=== PATIENT | male | born 1980 | race Hispanic/Latino ===

== ENCOUNTER 2022-02-22 14:03 | Emergency (ER) | payer MEDICAID ==
[~2022-02-22] VITALS: Ht 177.8 cm; Wt 113.4 kg
[2022-02-22 14:48] LABS: APPEARANCE,URINE Clear (CLEAR); BILIRUBIN,URINE Negative (NEGATIVE); COLOR,URINE Yellow (YELLOW); GLUCOSE, URINE (UA) Negative (NEGATIVE); KETONES,URINE Trace mg/dL (NEGATIVE); LEUKOCYTE ESTERASE ,URINE Trace (NEGATIVE); NITRATE,URINE Negative (NEGATIVE); OCCULT BLOOD,URINE Negative (NEGATIVE); PH,URINE 5.5 (5.0-8.0); PROTEIN,URINE Negative (NEGATIVE)
[2022-02-22 14:55] LABS: RBC,URINE 0-1 /HPF (0-1)
[2022-02-22 14:56] LABS: BACTERIA,URINE Rare /HPF (None Seen); SQUAMOUS EPITHELIAL CELL,UR Rare /HPF (0-2)
[2022-02-22] MEDS ORDERED: 0.9%NACL 1000ML 1,000 ML IV ONE (15:30)
[2022-02-22] MEDS ORDERED: CEFTRIAXONE 1G VIAL IVP ONE (15:30)
[2022-02-22] MEDS ORDERED: MAGNESIUM CITRATE 296 ML SOLUTION PO ONE (15:30)
[2022-02-22] MEDS ORDERED: KETOROLAC 15MG/ML VIAL (15MG/ML) IV ONE (15:30)
[2022-02-22] MEDS ORDERED: CEPH500B PO (15:37)
[2022-02-22 15:38] LABS: BASOPHILS % (AUTO) 0.2 % (0.0-5.0); EOSINOPHILS % (AUTO) 1.6 % (0.0-8.0); HEMATOCRIT 47.2 % (42-54); MEAN CORPUSCULAR HGB CONC 32.6 g/dL (32.0-36.0); MEAN CORPUSCULAR VOLUME 88.9 fL (79-99); MONOCYTES % (AUTO) 4.5 % (3.0-13.0); NEUTROPHILS % (AUTO) 61.5 % (40.0-77.0); PLATELET COUNT (AUTO) 402 K/uL (130-400); RED BLOOD CELL COUNT(AUTO) 5.31 MIL/uL (4.50-6.20); RED CELL DISTRIBUTION WIDTH 12.3 % (11.0-15.5); WHITE BLOOD COUNT (AUTO) 9.8 K/uL (4.8-10.8)
[2022-02-22 15:55] LABS: CREATININE 0.9 mg/dL (0.5-1.5); POTASSIUM 3.6 mmol/L (3.5-5.1)
[2022-02-22 16:00] LABS: ALBUMIN 3.9 g/dL (3.5-5.0); BILIRUBIN,TOTAL 0.4 mg/dL (0.2-1.0); TOTAL PROTEIN, SERUM 8.2 g/dL (6.0-8.3)
[2022-02-22 16:04] VITALS: BP 134/75
[2022-02-22] MEDS ORDERED: ONDANSETRON 4MG INJ ONE (16:11)
[2022-02-22] MEDS ORDERED: ONDANSETRON 4MG INJ IVP ONE (16:30)
== END 2022-02-22 16:43 | disposition home or self-care (01) ==
LOC: EDH 14:03
DX: K59.00 Constipation, unspecified (principal); E86.0 Dehydration; N50.812 Left testicular pain; N50.811 Right testicular pain
CPT/HCPCS: 36415; 74018; 80053; 81001; 85025; 87486; 87797; 96374; 96375; 99284; J0696; J1885; J2405

== ENCOUNTER 2022-12-01 10:15 | Inpatient (IN) | payer MEDICAID ==
[~2022-12-01] VITALS: Ht 177.8 cm; Wt 100.2 kg
[~2022-12-01 10:15] MED LIST: CEPH500B PO
[2022-12-01] MEDS ORDERED: ACETAMINOPHEN 500 MG TABLET PO STA (10:44)
[2022-12-01] MEDS ORDERED: 0.9%NACL 1000ML 1,000 ML IV STA (10:44)
[2022-12-01 10:45] LABS: BASOPHILS % (AUTO) 0.2 % (0.0-5.0); HEMATOCRIT 46.4 % (42-54); LYMPHOCYTES % (AUTO) 11.8 % (21.0-51.0); MEAN CORPUSCULAR HEMOGLOBIN 30.8 pg (27.0-33.0); MEAN CORPUSCULAR HGB CONC 34.1 g/dL (32.0-36.0); MEAN CORPUSCULAR VOLUME 90.4 fL (79-99); MONOCYTES % (AUTO) 3.9 % (3.0-13.0); NEUTROPHILS % (AUTO) 83.5 % (40.0-77.0); PLATELET COUNT (AUTO) 363 K/uL (130-400); RED BLOOD CELL COUNT(AUTO) 5.13 MIL/uL (4.50-6.20); RED CELL DISTRIBUTION WIDTH 12.9 % (11.0-15.5); WHITE BLOOD COUNT (AUTO) 28.8 K/uL (4.8-10.8)
[2022-12-01] MEDS ORDERED: ZOSYN 3.375GM +NS 50ML IVPB ONE (11:00)
[2022-12-01] MEDS ORDERED: KETOROLAC 30MG VIAL (30MG/ML) IVP ONE (11:00)
[2022-12-01 11:01] LABS: CREATININE 1.2 mg/dL (0.5-1.5); POTASSIUM 3.2 mmol/L (3.5-5.1)
[2022-12-01 11:06] LABS: ALBUMIN 3.5 g/dL (3.5-5.0); TOTAL PROTEIN, SERUM 7.5 g/dL (6.0-8.3)
[2022-12-01] MEDS ORDERED: HYDROMORPHONE 0.5 MG SYG (0.5MG/0.5ML) IVP ONE (12:30)
[2022-12-01] MEDS ORDERED: 0.9%NACL 1000ML 2,000 ML IV ONE (12:30)
[2022-12-01 12:39] LABS: APPEARANCE,URINE CLEAR (CLEAR); BILIRUBIN,URINE NEGATIVE (NEGATIVE); COLOR,URINE YELLOW (YELLOW); GLUCOSE, URINE (UA) NEGATIVE (NEGATIVE); KETONES,URINE NEGATIVE (NEGATIVE); LEUKOCYTE ESTERASE ,URINE NEGATIVE Leu/uL (NEGATIVE); NITRATE,URINE NEGATIVE (NEGATIVE); OCCULT BLOOD,URINE SMALL (NEGATIVE); PROTEIN,URINE 10 mg/dL (NEGATIVE); UROBILINOGEN,URINE 0.2 mg/dL (0.2-1.0)
[2022-12-01 12:58] LABS: BACTERIA,URINE RARE /HPF (None Seen); MUCUS,URINE RARE LPF (None Seen); RBC,URINE 0-1 /HPF (0-1)
[2022-12-01] MEDS ORDERED: 0.9%NACL 50ML IV SCH (13:00)
[2022-12-01] MEDS ORDERED: HYDROMORPHONE 0.5 MG SYG (0.5MG/0.5ML) IVP PRN (13:00)
[2022-12-01] MEDS ORDERED: ONDANSETRON 4MG INJ IVP PRN (13:00)
[2022-12-01 14:04] LABS: INR 1.07 (0.85-1.15); PROTHROMBIN TIME 11.6 SEC (9.6-11.6)
[2022-12-01 14:05] LABS: PARTIAL THROMBOPLASTIN TIME 33.9 SEC (26.3-35.5)
[2022-12-01 14:08] LABS: HEMOGLOBIN A1C 5.4 % (4.0-6.0)
[2022-12-01 14:24] LABS: CRP QUANTITATIVE 260.1 mg/L (0.00-9.0); MAGNESIUM 2.1 mg/dL (1.80-2.40); THYROID STIMULATING HORMONE 0.87 uIU/mL (0.36-3.74)
[2022-12-01] MEDS: POTASSIUM CHLORIDE 20MEQ/100ML 100 ML IV PRN (14:40)
[2022-12-01] MEDS ORDERED: ACETAMINOPHEN 500 MG TABLET PO PRN (15:00)
[2022-12-01] MEDS: FLUCONAZOLE 200 MG/NS 100 ML 100 ML IV SCH (15:01)
[2022-12-01] MEDS: 0.9%NACL 1000ML 1,000 ML IV SCH (15:02)
[2022-12-01 16:00] VITALS: BP 122/78
[2022-12-01] MEDS: KETOROLAC 15MG/ML VIAL (15MG/ML) IV PRN (17:02)
[2022-12-01] MEDS ORDERED: ZOSYN 3.375GM +NS 50ML IVPB SCH (18:00)
[2022-12-01 20:00] VITALS: BP 115/66
[2022-12-01] MEDS: ZOSYN 3.375GM +NS 50ML IVPB SCH (21:14)
[2022-12-01] MEDS: HYDROMORPHONE 0.5 MG SYG (0.5MG/0.5ML) IVP PRN (22:48)
[2022-12-01 23:56] VITALS: BP 130/83
[2022-12-02] MEDS: 0.9%NACL 1000ML 1,000 ML IV SCH ×3 (02:20→20:09)
[2022-12-02] MEDS: KETOROLAC 15MG/ML VIAL (15MG/ML) IV PRN (03:55)
[2022-12-02 04:00] VITALS: BP 141/80
[2022-12-02] MEDS ORDERED: ACETAMINOPHEN 325 MG TAB PO PRN (04:00)
[2022-12-02] MEDS: ZOSYN 3.375GM +NS 50ML IVPB SCH ×3 (05:17→22:33)
[2022-12-02 05:18] LABS: BASOPHILS % (AUTO) 0.1 % (0.0-5.0); EOSINOPHILS % (AUTO) 0.2 % (0.0-8.0); HEMATOCRIT 40.8 % (42-54); LYMPHOCYTES % (AUTO) 12.8 % (21.0-51.0); MEAN CORPUSCULAR HGB CONC 32.8 g/dL (32.0-36.0); MEAN CORPUSCULAR VOLUME 94.4 fL (79-99); MONOCYTES % (AUTO) 3.9 % (3.0-13.0); NEUTROPHILS % (AUTO) 82.6 % (40.0-77.0); PLATELET COUNT (AUTO) 284 K/uL (130-400); RED BLOOD CELL COUNT(AUTO) 4.32 MIL/uL (4.50-6.20); RED CELL DISTRIBUTION WIDTH 12.7 % (11.0-15.5)
[2022-12-02 05:35] LABS: ALBUMIN 2.8 g/dL (3.5-5.0); MAGNESIUM 2.2 mg/dL (1.80-2.40); POTASSIUM 3.3 mmol/L (3.5-5.1); TOTAL PROTEIN, SERUM 6.5 g/dL (6.0-8.3)
[2022-12-02 06:16] LABS: CRP QUANTITATIVE 279.2 mg/L (0.00-9.0)
[2022-12-02 08:00] VITALS: BP 149/90
[2022-12-02] MEDS: KETOROLAC 30MG VIAL (30MG/ML) IVP SCH ×3 (09:20→20:39)
[2022-12-02] MEDS: POTASSIUM CHLORIDE 20MEQ/100ML 100 ML IV PRN ×2 (09:22→19:29)
[2022-12-02 12:00] VITALS: BP 135/75
[2022-12-02] MEDS ORDERED: LIDOCAINE HCL-MPF 1% 2ML VIAL IV PRN (13:00)
[2022-12-02] MEDS: FLUCONAZOLE 200 MG/NS 100 ML 100 ML IV SCH (14:09)
[2022-12-02 16:00] VITALS: BP 132/82
[2022-12-02 20:00] VITALS: BP 137/82
[2022-12-02] MEDS ORDERED: ALPRAZOLAM 0.5 MG TABLET PO ONE (21:00)
[2022-12-03] VITALS: BP 130/82
[2022-12-03] MEDS: 0.9%NACL 1000ML 1,000 ML IV SCH ×4 (01:16→21:08)
[2022-12-03 04:00] VITALS: BP 130/79
[2022-12-03] MEDS: KETOROLAC 30MG VIAL (30MG/ML) IVP SCH ×3 (04:01→15:00)
[2022-12-03] MEDS: ZOSYN 3.375GM +NS 50ML IVPB SCH ×3 (04:20→21:08)
[2022-12-03 05:55] LABS: BASOPHILS % (AUTO) 0.1 % (0.0-5.0); EOSINOPHILS % (AUTO) 0.8 % (0.0-8.0); HEMATOCRIT 38.3 % (42-54); LYMPHOCYTES % (AUTO) 12.9 % (21.0-51.0); MEAN CORPUSCULAR HEMOGLOBIN 30.7 pg (27.0-33.0); MEAN CORPUSCULAR HGB CONC 32.9 g/dL (32.0-36.0); MEAN CORPUSCULAR VOLUME 93.2 fL (79-99); MONOCYTES % (AUTO) 4.8 % (3.0-13.0); NEUTROPHILS % (AUTO) 80.9 % (40.0-77.0); PLATELET COUNT (AUTO) 263 K/uL (130-400); RED BLOOD CELL COUNT(AUTO) 4.11 MIL/uL (4.50-6.20); RED CELL DISTRIBUTION WIDTH 12.6 % (11.0-15.5); WHITE BLOOD COUNT (AUTO) 14.1 K/uL (4.8-10.8)
[2022-12-03 06:17] LABS: ALBUMIN 2.4 g/dL (3.5-5.0); CREATININE 0.8 mg/dL (0.5-1.5); MAGNESIUM 2.1 mg/dL (1.80-2.40); POTASSIUM 3.4 mmol/L (3.5-5.1); TOTAL PROTEIN, SERUM 6.2 g/dL (6.0-8.3)
[2022-12-03] MEDS: KCL 20 MEQ ERTAB PO PRN (06:52)
[2022-12-03 08:00] VITALS: BP 123/79
[2022-12-03 11:58] VITALS: BP 137/90
[2022-12-03] MEDS: FLUCONAZOLE 200 MG/NS 100 ML 100 ML IV SCH (13:00)
[2022-12-03] MEDS: HYDROMORPHONE 0.5 MG SYG (0.5MG/0.5ML) IVP PRN ×2 (15:32→19:58)
[2022-12-03 16:00] VITALS: BP 166/96
[2022-12-03 20:28] VITALS: BP 152/89
[2022-12-03] MEDS: HYDROMORPHONE 1 MG INJ IVP PRN (23:06)
[2022-12-04] VITALS (7 sets, daily range): BP systolic 129–168; BP diastolic 89–96
[2022-12-04] MEDS ORDERED: ACETAMINOPHEN 650 MG/20.3 ML UDCUP ONE (00:06)
[2022-12-04] MEDS: ACETAMINOPHEN 325 MG/10.15ML UDCUP PO PRN ×4 (01:00→21:20)
[2022-12-04] MEDS: 0.9%NACL 1000ML 1,000 ML IV SCH ×2 (02:39→13:37)
[2022-12-04] MEDS: HYDROMORPHONE 1 MG INJ IVP PRN ×5 (04:20→22:53)
[2022-12-04] MEDS: ZOSYN 3.375GM +NS 50ML IVPB SCH ×3 (05:00→21:19)
[2022-12-04 05:22] LABS: BASOPHILS % (AUTO) 0.1 % (0.0-5.0); EOSINOPHILS % (AUTO) 0.2 % (0.0-8.0); HEMATOCRIT 39.4 % (42-54); LYMPHOCYTES % (AUTO) 13.1 % (21.0-51.0); MEAN CORPUSCULAR HEMOGLOBIN 30.6 pg (27.0-33.0); MEAN CORPUSCULAR HGB CONC 32.5 g/dL (32.0-36.0); MEAN CORPUSCULAR VOLUME 94.3 fL (79-99); MONOCYTES % (AUTO) 5.2 % (3.0-13.0); PLATELET COUNT (AUTO) 305 K/uL (130-400); RED BLOOD CELL COUNT(AUTO) 4.18 MIL/uL (4.50-6.20); RED CELL DISTRIBUTION WIDTH 12.8 % (11.0-15.5); WHITE BLOOD COUNT (AUTO) 11.8 K/uL (4.8-10.8)
[2022-12-04 05:46] LABS: ALBUMIN 2.3 g/dL (3.5-5.0); TOTAL PROTEIN, SERUM 6.4 g/dL (6.0-8.3)
[2022-12-04 06:14] LABS: CRP QUANTITATIVE 272.3 mg/L (0.00-9.0)
[2022-12-04 06:31] LABS: ERYTHROCYTE SEDIMENTATION RATE 60 MM/HR (0-15)
[2022-12-04] MEDS: FLUCONAZOLE 200 MG/NS 100 ML 100 ML IV SCH (13:37)
[2022-12-04] MEDS: DEXTROSE 5 %-0.45 % NACL 1,000 ML IV SCH (17:15)
[2022-12-05] MEDS: DEXTROSE 5 %-0.45 % NACL 1,000 ML IV SCH ×3 (00:56→21:01)
[2022-12-05] MEDS: HYDROMORPHONE 1 MG INJ IVP PRN ×6 (02:02→21:56)
[2022-12-05 04:41] VITALS: BP 128/86
[2022-12-05 04:42] LABS: BASOPHILS % (AUTO) 0.1 % (0.0-5.0); EOSINOPHILS % (AUTO) 0.3 % (0.0-8.0); HEMATOCRIT 39.2 % (42-54); LYMPHOCYTES % (AUTO) 11.3 % (21.0-51.0); MEAN CORPUSCULAR HEMOGLOBIN 30.7 pg (27.0-33.0); MEAN CORPUSCULAR HGB CONC 33.2 g/dL (32.0-36.0); MEAN CORPUSCULAR VOLUME 92.7 fL (79-99); MONOCYTES % (AUTO) 4.3 % (3.0-13.0); NEUTROPHILS % (AUTO) 83.6 % (40.0-77.0); PLATELET COUNT (AUTO) 302 K/uL (130-400); RED BLOOD CELL COUNT(AUTO) 4.23 MIL/uL (4.50-6.20); WHITE BLOOD COUNT (AUTO) 14.4 K/uL (4.8-10.8)
[2022-12-05] MEDS: ZOSYN 3.375GM +NS 50ML IVPB SCH ×3 (04:47→21:01)
[2022-12-05 04:57] LABS: CREATININE 1.1 mg/dL (0.5-1.5); POTASSIUM 3.5 mmol/L (3.5-5.1); TOTAL PROTEIN, SERUM 6.1 g/dL (6.0-8.3)
[2022-12-05 05:09] LABS: CRP QUANTITATIVE 396.2 mg/L (0.00-9.0)
[2022-12-05 05:52] LABS: ERYTHROCYTE SEDIMENTATION RATE 73 MM/HR (0-15)
[2022-12-05 07:50] VITALS: BP 129/85
[2022-12-05] MEDS ORDERED: VANCOMYCIN PROTOCOL PER PHARMACY IV PRN (08:30)
[2022-12-05] MEDS ORDERED: VANCOMYCIN 1G/250ML KIT 250 ML IV SCH (08:30)
[2022-12-05] MEDS ORDERED: FLUCONAZOLE 200 MG/NS 100 ML 100 ML IV SCH (09:00)
[2022-12-05] MEDS ORDERED: VANCOMYCIN 1.25 GM/250 ML BAG 250 ML IV SCH (09:00)
[2022-12-05 11:27] VITALS: BP 137/83
[2022-12-05] MEDS ORDERED: DIATR MEGLU/DIATRIZOATE SODIUM 30 ML BOTTLE ONE (12:22)
[2022-12-05] MEDS: FLUCONAZOLE 200 MG/NS 100 ML 100 ML IV SCH (13:18)
[2022-12-05] MEDS: LINEZOLID 600 MG/ISO-OSM 300 ML IV SCH (15:33)
[2022-12-05 16:51] VITALS: BP 127/72
[2022-12-05] MEDS ORDERED: IOHEXOL 350 MG/ML 100ML INFUS..BTL IV ONE (16:53)
[2022-12-05 19:22] VITALS: BP 135/72
[2022-12-05 23:30] VITALS: BP 126/81
[2022-12-06] MEDS: DEXTROSE 5 %-0.45 % NACL 1,000 ML IV SCH ×3 (00:28→14:41)
[2022-12-06] MEDS: HYDROMORPHONE 1 MG INJ IVP PRN ×6 (02:09→23:49)
[2022-12-06] MEDS: LINEZOLID 600 MG/ISO-OSM 300 ML IV SCH ×2 (02:09→13:13)
[2022-12-06 03:54] VITALS: BP 117/75
[2022-12-06 05:23] LABS: BASOPHILS % (AUTO) 0.2 % (0.0-5.0); EOSINOPHILS % (AUTO) 1.7 % (0.0-8.0); HEMATOCRIT 38.2 % (42-54); LYMPHOCYTES % (AUTO) 13.8 % (21.0-51.0); MEAN CORPUSCULAR HEMOGLOBIN 30.7 pg (27.0-33.0); MEAN CORPUSCULAR HGB CONC 32.5 g/dL (32.0-36.0); MEAN CORPUSCULAR VOLUME 94.6 fL (79-99); MONOCYTES % (AUTO) 5.4 % (3.0-13.0); NEUTROPHILS % (AUTO) 78.2 % (40.0-77.0); PLATELET COUNT (AUTO) 322 K/uL (130-400); RED BLOOD CELL COUNT(AUTO) 4.04 MIL/uL (4.50-6.20); RED CELL DISTRIBUTION WIDTH 13.2 % (11.0-15.5); WHITE BLOOD COUNT (AUTO) 16.3 K/uL (4.8-10.8)
[2022-12-06] MEDS: ZOSYN 3.375GM +NS 50ML IVPB SCH ×3 (05:40→22:27)
[2022-12-06 06:01] LABS: CREATININE 1.2 mg/dL (0.5-1.5); TOTAL PROTEIN, SERUM 6.3 g/dL (6.0-8.3)
[2022-12-06 06:11] LABS: POTASSIUM 2.9 mmol/L (3.5-5.1)
[2022-12-06 06:20] LABS: CRP QUANTITATIVE 359.1 mg/L (0.00-9.0)
[2022-12-06 06:36] LABS: ALBUMIN 2.2 g/dL (3.5-5.0)
[2022-12-06 06:37] LABS: ERYTHROCYTE SEDIMENTATION RATE 82 MM/HR (0-15)
[2022-12-06] MEDS: LIDOCAINE HCL-MPF 1% 2ML VIAL IV PRN ×2 (06:38→13:13)
[2022-12-06] MEDS: POTASSIUM CHLORIDE 20MEQ/100ML 100 ML IV PRN ×3 (06:38→22:24)
[2022-12-06 08:00] VITALS: BP 131/82
[2022-12-06 11:44] VITALS: BP 141/89
[2022-12-06] MEDS: FLUCONAZOLE 200 MG/NS 100 ML 100 ML IV SCH (13:13)
[2022-12-06 16:33] VITALS: BP 112/68
[2022-12-06 19:22] VITALS: BP 142/90
[2022-12-06] MEDS: FAMOTIDINE 20MG VIAL IV SCH (21:13)
[2022-12-06 23:39] VITALS: BP 136/87
[2022-12-07] VITALS (11 sets, daily range): BP systolic 117–139; BP diastolic 77–85
[2022-12-07] MEDS: LINEZOLID 600 MG/ISO-OSM 300 ML IV SCH ×2 (02:06→15:02)
[2022-12-07] MEDS: ZOSYN 3.375GM +NS 50ML IVPB SCH ×3 (04:37→20:41)
[2022-12-07] MEDS: HYDROMORPHONE 1 MG INJ IVP PRN ×3 (04:46→19:25)
[2022-12-07] MEDS: DEXTROSE 5 %-0.45 % NACL 1,000 ML IV SCH ×2 (04:58→08:30)
[2022-12-07 05:03] LABS: BASOPHILS % (AUTO) 0.2 % (0.0-5.0); EOSINOPHILS % (AUTO) 1.7 % (0.0-8.0); HEMATOCRIT 37.2 % (42-54); LYMPHOCYTES % (AUTO) 16.1 % (21.0-51.0); MEAN CORPUSCULAR HEMOGLOBIN 30.4 pg (27.0-33.0); MEAN CORPUSCULAR HGB CONC 32.5 g/dL (32.0-36.0); MEAN CORPUSCULAR VOLUME 93.5 fL (79-99); NEUTROPHILS % (AUTO) 75.3 % (40.0-77.0); PLATELET COUNT (AUTO) 402 K/uL (130-400); RED BLOOD CELL COUNT(AUTO) 3.98 MIL/uL (4.50-6.20); RED CELL DISTRIBUTION WIDTH 13.5 % (11.0-15.5); WHITE BLOOD COUNT (AUTO) 12.1 K/uL (4.8-10.8)
[2022-12-07 05:29] LABS: CREATININE 1.1 mg/dL (0.5-1.5)
[2022-12-07 05:35] LABS: POTASSIUM 2.9 mmol/L (3.5-5.1)
[2022-12-07 05:36] LABS: CRP QUANTITATIVE 244.7 mg/L (0.00-9.0)
[2022-12-07] MEDS: POTASSIUM CHLORIDE 20MEQ/100ML 100 ML IV PRN (06:24)
[2022-12-07 06:28] LABS: ERYTHROCYTE SEDIMENTATION RATE 69 MM/HR (0-15)
[2022-12-07] MEDS: FAMOTIDINE 20MG VIAL IV SCH ×2 (09:00→20:41)
[2022-12-07] MEDS ORDERED: FENTANYL CITRATE PF 50 MCG/1 ML 2ML VIAL ONE (09:30)
[2022-12-07] MEDS: FLUCONAZOLE 200 MG/NS 100 ML 100 ML IV SCH (12:26)
[2022-12-07] MEDS: POTASSIUM CHLORIDE 20MEQ/10ML 20 MEQ in DEXTROSE 5 %-0.45 % NACL 1,000 ML IV SCH ×2 (15:02→21:34)
[2022-12-07] MEDS ORDERED: LIDOCAINE HCL 1% 20 ML VIAL ONE (15:40)
[2022-12-08] MEDS: LINEZOLID 600 MG/ISO-OSM 300 ML IV SCH ×2 (01:33→15:02)
[2022-12-08 03:48] VITALS: BP 126/75
[2022-12-08] MEDS: HYDROMORPHONE 1 MG INJ IVP PRN ×3 (04:00→17:28)
[2022-12-08 05:01] LABS: BASOPHILS % (AUTO) 0.2 % (0.0-5.0); HEMATOCRIT 37.1 % (42-54); LYMPHOCYTES % (AUTO) 19.4 % (21.0-51.0); MEAN CORPUSCULAR HEMOGLOBIN 30.6 pg (27.0-33.0); MEAN CORPUSCULAR HGB CONC 33.4 g/dL (32.0-36.0); MEAN CORPUSCULAR VOLUME 91.6 fL (79-99); MONOCYTES % (AUTO) 6.1 % (3.0-13.0); NEUTROPHILS % (AUTO) 71.4 % (40.0-77.0); PLATELET COUNT (AUTO) 465 K/uL (130-400); RED BLOOD CELL COUNT(AUTO) 4.05 MIL/uL (4.50-6.20); RED CELL DISTRIBUTION WIDTH 13.5 % (11.0-15.5); WHITE BLOOD COUNT (AUTO) 11.7 K/uL (4.8-10.8)
[2022-12-08] MEDS: ZOSYN 3.375GM +NS 50ML IVPB SCH ×3 (05:12→20:45)
[2022-12-08] MEDS: POTASSIUM CHLORIDE 20MEQ/100ML 100 ML IV PRN (05:24)
[2022-12-08] MEDS: LIDOCAINE HCL-MPF 1% 2ML VIAL IV PRN (05:24)
[2022-12-08] MEDS: POTASSIUM CHLORIDE 20MEQ/10ML 20 MEQ in DEXTROSE 5 %-0.45 % NACL 1,000 ML IV SCH ×2 (05:48→20:26)
[2022-12-08 06:56] LABS: ERYTHROCYTE SEDIMENTATION RATE 60 MM/HR (0-15)
[2022-12-08 08:00] VITALS: BP 122/79
[2022-12-08] MEDS: FAMOTIDINE 20MG VIAL IV SCH ×2 (08:55→20:43)
[2022-12-08 11:23] VITALS: BP 132/80
[2022-12-08] MEDS: FLUCONAZOLE 200 MG/NS 100 ML 100 ML IV SCH (12:44)
[2022-12-08] MEDS: HYDROMORPHONE 0.5 MG SYG (0.5MG/0.5ML) IVP PRN ×2 (13:07→20:44)
[2022-12-08 16:00] VITALS: BP 123/80
[2022-12-08 19:15] VITALS: BP 140/92
[2022-12-08] MEDS: D5W-1/2 NS/20MEQ KCL 1,000 ML IV SCH (20:34)
[2022-12-08 23:19] VITALS: BP 131/86
[2022-12-09] MEDS: HYDROMORPHONE 1 MG INJ IVP PRN ×5 (00:43→22:27)
[2022-12-09] MEDS: LINEZOLID 600 MG/ISO-OSM 300 ML IV SCH ×2 (02:02→14:58)
[2022-12-09] MEDS: D5W-1/2 NS/20MEQ KCL 1,000 ML IV SCH ×3 (02:14→18:19)
[2022-12-09 04:08] VITALS: BP 152/96
[2022-12-09] MEDS: ZOSYN 3.375GM +NS 50ML IVPB SCH ×3 (04:14→19:40)
[2022-12-09 04:56] LABS: BASOPHILS % (AUTO) 0.1 % (0.0-5.0); EOSINOPHILS % (AUTO) 1.7 % (0.0-8.0); HEMATOCRIT 37.8 % (42-54); LYMPHOCYTES % (AUTO) 18.4 % (21.0-51.0); MEAN CORPUSCULAR HEMOGLOBIN 30.2 pg (27.0-33.0); MEAN CORPUSCULAR HGB CONC 32.3 g/dL (32.0-36.0); MEAN CORPUSCULAR VOLUME 93.6 fL (79-99); MONOCYTES % (AUTO) 5.1 % (3.0-13.0); NEUTROPHILS % (AUTO) 73.6 % (40.0-77.0); PLATELET COUNT (AUTO) 483 K/uL (130-400); RED BLOOD CELL COUNT(AUTO) 4.04 MIL/uL (4.50-6.20); RED CELL DISTRIBUTION WIDTH 13.2 % (11.0-15.5); WHITE BLOOD COUNT (AUTO) 14.9 K/uL (4.8-10.8)
[2022-12-09 05:27] LABS: CRP QUANTITATIVE 151.7 mg/L (0.00-9.0); POTASSIUM 3.4 mmol/L (3.5-5.1)
[2022-12-09] MEDS: LIDOCAINE HCL-MPF 1% 2ML VIAL IV PRN (05:51)
[2022-12-09] MEDS: POTASSIUM CHLORIDE 20MEQ/100ML 100 ML IV PRN (05:51)
[2022-12-09 06:23] LABS: ERYTHROCYTE SEDIMENTATION RATE 45 MM/HR (0-15)
[2022-12-09 08:00] VITALS: BP 136/92
[2022-12-09] MEDS: FAMOTIDINE 20MG VIAL IV SCH ×2 (08:19→19:40)
[2022-12-09 11:48] VITALS: BP 138/94
[2022-12-09] MEDS: FLUCONAZOLE 200 MG/NS 100 ML 100 ML IV SCH (12:26)
[2022-12-09 15:35] VITALS: BP 132/56
[2022-12-09 19:00] VITALS: BP 155/98
[2022-12-10] VITALS (7 sets, daily range): BP systolic 125–145; BP diastolic 76–92
[2022-12-10] MEDS: LINEZOLID 600 MG/ISO-OSM 300 ML IV SCH ×2 (01:14→13:44)
[2022-12-10] MEDS: D5W-1/2 NS/20MEQ KCL 1,000 ML IV SCH ×3 (01:14→17:43)
[2022-12-10] MEDS: ZOSYN 3.375GM +NS 50ML IVPB SCH ×3 (04:11→19:23)
[2022-12-10] MEDS: HYDROMORPHONE 1 MG INJ IVP PRN ×3 (04:12→21:46)
[2022-12-10 05:09] LABS: BASOPHILS % (AUTO) 0.2 % (0.0-5.0); EOSINOPHILS % (AUTO) 1.3 % (0.0-8.0); HEMATOCRIT 39.5 % (42-54); LYMPHOCYTES % (AUTO) 18.1 % (21.0-51.0); MEAN CORPUSCULAR HEMOGLOBIN 30.8 pg (27.0-33.0); MEAN CORPUSCULAR HGB CONC 32.4 g/dL (32.0-36.0); MEAN CORPUSCULAR VOLUME 95.2 fL (79-99); MONOCYTES % (AUTO) 4.4 % (3.0-13.0); NEUTROPHILS % (AUTO) 74.5 % (40.0-77.0); PLATELET COUNT (AUTO) 556 K/uL (130-400); RED BLOOD CELL COUNT(AUTO) 4.15 MIL/uL (4.50-6.20); RED CELL DISTRIBUTION WIDTH 13.2 % (11.0-15.5); WHITE BLOOD COUNT (AUTO) 15.7 K/uL (4.8-10.8)
[2022-12-10 05:46] LABS: CREATININE 1.1 mg/dL (0.5-1.5); POTASSIUM 3.5 mmol/L (3.5-5.1)
[2022-12-10 06:59] LABS: ERYTHROCYTE SEDIMENTATION RATE 47 MM/HR (0-15)
[2022-12-10] MEDS: FAMOTIDINE 20MG VIAL IV SCH ×2 (09:12→19:23)
[2022-12-10] MEDS: HYDROMORPHONE 0.5 MG SYG (0.5MG/0.5ML) IVP PRN ×2 (09:14→17:43)
[2022-12-10] MEDS: FLUCONAZOLE 200 MG/NS 100 ML 100 ML IV SCH (13:43)
[2022-12-11] MEDS: LINEZOLID 600 MG/ISO-OSM 300 ML IV SCH ×2 (01:04→15:04)
[2022-12-11] MEDS: D5W-1/2 NS/20MEQ KCL 1,000 ML IV SCH ×3 (01:04→15:14)
[2022-12-11] MEDS: HYDROMORPHONE 1 MG INJ IVP PRN ×5 (02:51→22:28)
[2022-12-11] MEDS: ZOSYN 3.375GM +NS 50ML IVPB SCH ×3 (02:51→20:11)
[2022-12-11 04:27] VITALS: BP 118/84
[2022-12-11 05:34] LABS: BASOPHILS % (AUTO) 0.2 % (0.0-5.0); EOSINOPHILS % (AUTO) 1.6 % (0.0-8.0); HEMATOCRIT 39.2 % (42-54); LYMPHOCYTES % (AUTO) 22.4 % (21.0-51.0); MEAN CORPUSCULAR HEMOGLOBIN 30.2 pg (27.0-33.0); MEAN CORPUSCULAR HGB CONC 32.4 g/dL (32.0-36.0); MEAN CORPUSCULAR VOLUME 93.3 fL (79-99); MONOCYTES % (AUTO) 5.2 % (3.0-13.0); NEUTROPHILS % (AUTO) 69.4 % (40.0-77.0); PLATELET COUNT (AUTO) 657 K/uL (130-400); WHITE BLOOD COUNT (AUTO) 12.3 K/uL (4.8-10.8)
[2022-12-11 05:52] LABS: MAGNESIUM 2.4 mg/dL (1.80-2.40); PHOSPHORUS 3.7 mg/dL (2.5-4.9); POTASSIUM 3.8 mmol/L (3.5-5.1)
[2022-12-11 08:00] VITALS: BP 122/82
[2022-12-11] MEDS ORDERED: IOHEXOL 350 MG/ML 100ML INFUS..BTL IV ONE (08:45)
[2022-12-11] MEDS: FAMOTIDINE 20MG VIAL IV SCH ×2 (09:20→20:11)
[2022-12-11 11:49] VITALS: BP 124/83
[2022-12-11] MEDS: FLUCONAZOLE 200 MG/NS 100 ML 100 ML IV SCH (12:04)
[2022-12-11 16:00] VITALS: BP 119/79
[2022-12-11 20:19] VITALS: BP 133/80
[2022-12-11] MEDS: HYDROMORPHONE 0.5 MG SYG (0.5MG/0.5ML) IVP PRN (20:20)
[2022-12-11 23:43] VITALS: BP 134/81
[2022-12-12] MEDS: LINEZOLID 600 MG/ISO-OSM 300 ML IV SCH ×2 (02:00→13:21)
[2022-12-12] MEDS: D5W-1/2 NS/20MEQ KCL 1,000 ML IV SCH ×2 (02:11→09:13)
[2022-12-12] MEDS: HYDROMORPHONE 0.5 MG SYG (0.5MG/0.5ML) IVP PRN ×5 (02:13→21:33)
[2022-12-12 04:28] VITALS: BP 127/77
[2022-12-12 04:43] LABS: BASOPHILS % (AUTO) 0.3 % (0.0-5.0); EOSINOPHILS % (AUTO) 1.6 % (0.0-8.0); HEMATOCRIT 40.1 % (42-54); MEAN CORPUSCULAR HEMOGLOBIN 30.5 pg (27.0-33.0); MEAN CORPUSCULAR HGB CONC 32.7 g/dL (32.0-36.0); MEAN CORPUSCULAR VOLUME 93.3 fL (79-99); MONOCYTES % (AUTO) 4.9 % (3.0-13.0); NEUTROPHILS % (AUTO) 75.5 % (40.0-77.0); PLATELET COUNT (AUTO) 681 K/uL (130-400); RED CELL DISTRIBUTION WIDTH 12.9 % (11.0-15.5); WHITE BLOOD COUNT (AUTO) 15.3 K/uL (4.8-10.8)
[2022-12-12] MEDS: ZOSYN 3.375GM +NS 50ML IVPB SCH ×3 (04:45→20:26)
[2022-12-12 07:43] VITALS: BP 134/78
[2022-12-12] MEDS: FAMOTIDINE 20MG VIAL IV SCH ×2 (08:01→20:26)
[2022-12-12 11:30] VITALS: BP 153/91
[2022-12-12] MEDS: FLUCONAZOLE 200 MG/NS 100 ML 100 ML IV SCH (11:55)
[2022-12-12] MEDS: HYDROMORPHONE 1 MG INJ IVP PRN (13:22)
[2022-12-12 16:00] VITALS: BP 134/94
[2022-12-12 20:05] VITALS: BP 129/79
[2022-12-12 23:25] VITALS: BP 121/75
[2022-12-13] MEDS: D5W-1/2 NS/20MEQ KCL 1,000 ML IV SCH ×5 (02:00→20:52)
[2022-12-13] MEDS: LINEZOLID 600 MG/ISO-OSM 300 ML IV SCH ×2 (02:22→13:24)
[2022-12-13] MEDS: HYDROMORPHONE 0.5 MG SYG (0.5MG/0.5ML) IVP PRN ×4 (02:26→21:36)
[2022-12-13 03:56] VITALS: BP 115/73
[2022-12-13 04:25] LABS: BASOPHILS % (AUTO) 0.3 % (0.0-5.0); HEMATOCRIT 39.4 % (42-54); LYMPHOCYTES % (AUTO) 24.5 % (21.0-51.0); MEAN CORPUSCULAR HEMOGLOBIN 30.6 pg (27.0-33.0); MEAN CORPUSCULAR VOLUME 92.7 fL (79-99); MONOCYTES % (AUTO) 4.8 % (3.0-13.0); NEUTROPHILS % (AUTO) 67.7 % (40.0-77.0); RED BLOOD CELL COUNT(AUTO) 4.25 MIL/uL (4.50-6.20); RED CELL DISTRIBUTION WIDTH 12.8 % (11.0-15.5); WHITE BLOOD COUNT (AUTO) 11.6 K/uL (4.8-10.8)
[2022-12-13 04:26] LABS: PLATELET COUNT (AUTO) 764 K/uL (130-400)
[2022-12-13 04:45] LABS: POTASSIUM 3.8 mmol/L (3.5-5.1)
[2022-12-13] MEDS: ZOSYN 3.375GM +NS 50ML IVPB SCH ×3 (05:19→20:53)
[2022-12-13 08:00] VITALS: BP 123/73
[2022-12-13] MEDS: FAMOTIDINE 20MG VIAL IV SCH ×2 (08:58→20:52)
[2022-12-13] MEDS ORDERED: HYDROMORPHONE 0.5 MG SYG (0.5MG/0.5ML) ONE (11:32)
[2022-12-13] MEDS: FLUCONAZOLE 200 MG/NS 100 ML 100 ML IV SCH (11:35)
[2022-12-13 12:00] VITALS: BP 121/81
[2022-12-13 16:00] VITALS: BP 117/75
[2022-12-14] VITALS (7 sets, daily range): BP systolic 110–135; BP diastolic 67–83
[2022-12-14] MEDS: LINEZOLID 600 MG/ISO-OSM 300 ML IV SCH ×2 (01:33→14:06)
[2022-12-14] MEDS: HYDROMORPHONE 0.5 MG SYG (0.5MG/0.5ML) IVP PRN ×5 (01:59→22:29)
[2022-12-14] MEDS: ZOSYN 3.375GM +NS 50ML IVPB SCH ×3 (05:01→19:51)
[2022-12-14 08:00] LABS: HEMATOCRIT 41.7 % (42-54); MEAN CORPUSCULAR HEMOGLOBIN 30.2 pg (27.0-33.0); MEAN CORPUSCULAR HGB CONC 31.9 g/dL (32.0-36.0); MEAN CORPUSCULAR VOLUME 94.6 fL (79-99); RED BLOOD CELL COUNT(AUTO) 4.41 MIL/uL (4.50-6.20); RED CELL DISTRIBUTION WIDTH 12.9 % (11.0-15.5); WHITE BLOOD COUNT (AUTO) 10.6 K/uL (4.8-10.8)
[2022-12-14 08:09] LABS: PLATELET COUNT (AUTO) 731 K/uL (130-400)
[2022-12-14 08:10] LABS: CREATININE 1.1 mg/dL (0.5-1.5); POTASSIUM 4.4 mmol/L (3.5-5.1)
[2022-12-14] MEDS: FAMOTIDINE 20MG VIAL IV SCH ×2 (09:00→19:51)
[2022-12-14] MEDS: D5W-1/2 NS/20MEQ KCL 1,000 ML IV SCH ×2 (10:00→18:14)
[2022-12-14] MEDS: FLUCONAZOLE 200 MG/NS 100 ML 100 ML IV SCH (13:23)
[2022-12-15] MEDS: LINEZOLID 600 MG/ISO-OSM 300 ML IV SCH ×2 (01:59→13:55)
[2022-12-15] MEDS: D5W-1/2 NS/20MEQ KCL 1,000 ML IV SCH ×4 (01:59→21:01)
[2022-12-15] MEDS: HYDROMORPHONE 0.5 MG SYG (0.5MG/0.5ML) IVP PRN ×5 (02:00→22:16)
[2022-12-15 04:00] VITALS: BP 118/78
[2022-12-15] MEDS: ZOSYN 3.375GM +NS 50ML IVPB SCH ×2 (04:43→13:05)
[2022-12-15 08:00] VITALS: BP 105/81
[2022-12-15] MEDS: FAMOTIDINE 20MG VIAL IV SCH ×2 (09:42→21:00)
[2022-12-15 12:00] VITALS: BP 118/76
[2022-12-15] MEDS: FLUCONAZOLE 200 MG/NS 100 ML 100 ML IV SCH (13:05)
[2022-12-15 16:00] VITALS: BP 124/83
[2022-12-15 20:00] VITALS: BP 118/71
[2022-12-16] VITALS: BP 121/75
[2022-12-16] MEDS: LINEZOLID 600 MG/ISO-OSM 300 ML IV SCH ×2 (02:08→14:01)
[2022-12-16] MEDS: HYDROMORPHONE 0.5 MG SYG (0.5MG/0.5ML) IVP PRN ×3 (02:11→13:27)
[2022-12-16 04:00] VITALS: BP 109/70
[2022-12-16 05:08] LABS: BASOPHILS % (AUTO) 0.4 % (0.0-5.0); EOSINOPHILS % (AUTO) 3.3 % (0.0-8.0); HEMATOCRIT 40.1 % (42-54); LYMPHOCYTES % (AUTO) 30.1 % (21.0-51.0); MEAN CORPUSCULAR HGB CONC 32.2 g/dL (32.0-36.0); MEAN CORPUSCULAR VOLUME 93.3 fL (79-99); MONOCYTES % (AUTO) 4.7 % (3.0-13.0); NEUTROPHILS % (AUTO) 61.1 % (40.0-77.0); PLATELET COUNT (AUTO) 696 K/uL (130-400); RED CELL DISTRIBUTION WIDTH 12.8 % (11.0-15.5); WHITE BLOOD COUNT (AUTO) 11.6 K/uL (4.8-10.8)
[2022-12-16 05:26] LABS: CREATININE 1.1 mg/dL (0.5-1.5); MAGNESIUM 2.2 mg/dL (1.80-2.40); PHOSPHORUS 4.2 mg/dL (2.5-4.9); POTASSIUM 3.5 mmol/L (3.5-5.1)
[2022-12-16] MEDS ORDERED: DIATR MEGLU/DIATRIZOATE SODIUM 30 ML BOTTLE ONE ×2 (05:47→08:17)
[2022-12-16] MEDS: D5W-1/2 NS/20MEQ KCL 1,000 ML IV SCH ×3 (06:17→22:05)
[2022-12-16 07:47] VITALS: BP 120/76
[2022-12-16] MEDS ORDERED: IOHEXOL-350 75 ML VIAL IV ONE (08:16)
[2022-12-16] MEDS: FAMOTIDINE 20MG VIAL IV SCH ×2 (08:30→20:58)
[2022-12-16] MEDS: HYDROMORPHONE 1 MG INJ IVP PRN ×3 (09:43→21:33)
[2022-12-16 12:06] VITALS: BP 112/64
[2022-12-16] MEDS: FLUCONAZOLE 200 MG/NS 100 ML 100 ML IV SCH (13:12)
[2022-12-16] MEDS: KCL 20 MEQ ERTAB PO PRN ×2 (15:42→18:16)
[2022-12-16 15:55] VITALS: BP 122/68
[2022-12-16 20:00] VITALS: BP 126/78
[2022-12-17] VITALS: BP 119/76
[2022-12-17] MEDS: HYDROMORPHONE 1 MG INJ IVP PRN ×4 (01:38→21:43)
[2022-12-17] MEDS: LINEZOLID 600 MG/ISO-OSM 300 ML IV SCH ×2 (01:38→13:25)
[2022-12-17 04:00] VITALS: BP 130/81
[2022-12-17 05:58] LABS: BASOPHILS % (AUTO) 0.6 % (0.0-5.0); EOSINOPHILS % (AUTO) 3.7 % (0.0-8.0); HEMATOCRIT 41.6 % (42-54); LYMPHOCYTES % (AUTO) 32.7 % (21.0-51.0); MEAN CORPUSCULAR HEMOGLOBIN 30.5 pg (27.0-33.0); MEAN CORPUSCULAR HGB CONC 32.5 g/dL (32.0-36.0); MEAN CORPUSCULAR VOLUME 93.9 fL (79-99); MONOCYTES % (AUTO) 4.4 % (3.0-13.0); NEUTROPHILS % (AUTO) 58.2 % (40.0-77.0); RED BLOOD CELL COUNT(AUTO) 4.43 MIL/uL (4.50-6.20); RED CELL DISTRIBUTION WIDTH 12.9 % (11.0-15.5); WHITE BLOOD COUNT (AUTO) 11.6 K/uL (4.8-10.8)
[2022-12-17 06:08] LABS: PLATELET COUNT (AUTO) 715 K/uL (130-400)
[2022-12-17 06:29] LABS: CREATININE 0.9 mg/dL (0.5-1.5)
[2022-12-17 08:00] VITALS: BP 135/79
[2022-12-17] MEDS: FAMOTIDINE 20MG VIAL IV SCH ×2 (09:16→20:16)
[2022-12-17] MEDS: HYDROMORPHONE 0.5 MG SYG (0.5MG/0.5ML) IVP PRN ×2 (09:18→17:43)
[2022-12-17] MEDS: 0.9%NACL 1000ML 1,000 ML IV SCH (10:30)
[2022-12-17] MEDS: FLUCONAZOLE 200 MG/NS 100 ML 100 ML IV SCH (13:25)
[2022-12-17] MEDS: D5W-1/2 NS/20MEQ KCL 1,000 ML IV SCH ×2 (13:26→17:25)
[2022-12-17 16:00] VITALS: BP 110/72
[2022-12-17 20:02] VITALS: BP 114/76
[2022-12-17 23:51] VITALS: BP 107/72
[2022-12-18] MEDS: D5W-1/2 NS/20MEQ KCL 1,000 ML IV SCH ×3 (02:00→18:00)
[2022-12-18] MEDS: LINEZOLID 600 MG/ISO-OSM 300 ML IV SCH ×2 (02:55→12:38)
[2022-12-18] MEDS: 0.9%NACL 1000ML 1,000 ML IV SCH ×2 (02:56→12:39)
[2022-12-18] MEDS: HYDROMORPHONE 1 MG INJ IVP PRN ×4 (02:57→22:24)
[2022-12-18 04:39] VITALS: BP 100/59
[2022-12-18 04:51] LABS: BASOPHILS % (AUTO) 0.8 % (0.0-5.0); EOSINOPHILS % (AUTO) 5.4 % (0.0-8.0); HEMATOCRIT 40.4 % (42-54); LYMPHOCYTES % (AUTO) 42.1 % (21.0-51.0); MEAN CORPUSCULAR HEMOGLOBIN 30.2 pg (27.0-33.0); MEAN CORPUSCULAR HGB CONC 32.2 g/dL (32.0-36.0); MONOCYTES % (AUTO) 4.9 % (3.0-13.0); NEUTROPHILS % (AUTO) 46.6 % (40.0-77.0); PLATELET COUNT (AUTO) 649 K/uL (130-400); RED CELL DISTRIBUTION WIDTH 12.8 % (11.0-15.5); WHITE BLOOD COUNT (AUTO) 8.9 K/uL (4.8-10.8)
[2022-12-18 05:08] LABS: CREATININE 0.9 mg/dL (0.5-1.5); POTASSIUM 3.8 mmol/L (3.5-5.1)
[2022-12-18 08:13] VITALS: BP 99/57
[2022-12-18] MEDS: FAMOTIDINE 20MG VIAL IV SCH ×2 (09:17→20:37)
[2022-12-18 11:05] VITALS: BP 98/65
[2022-12-18] MEDS: POTASSIUM CHLORIDE 10% ELIXIR 20 MEQ/15 ML UDCUP PO PRN ×2 (11:13→14:52)
[2022-12-18] MEDS: FLUCONAZOLE 200 MG/NS 100 ML 100 ML IV SCH (13:48)
[2022-12-18] MEDS ORDERED: METRONIDAZOLE 500 MG TABLET PO ONE ×3 (14:00→19:00)
[2022-12-18] MEDS: HYDROMORPHONE 0.5 MG SYG (0.5MG/0.5ML) IVP PRN (14:11)
[2022-12-18] MEDS: CIPROFLOXACIN HCL 500 MG TABLET PO SCH ×3 (14:45→18:21)
[2022-12-18] MEDS ORDERED: PEG 3350/NA SULF,BICARB,CL/KCL 4000 ML SOLN PO ONE (16:00)
[2022-12-18 16:31] VITALS: BP 113/71
[2022-12-18 20:32] VITALS: BP 118/75
[2022-12-18] MEDS: DOCUSATE SODIUM 100 MG CAP PO SCH (20:37)
[2022-12-18] MEDS: KCL 20 MEQ ERTAB PO PRN ×2 (20:37→22:25)
[2022-12-19] VITALS (28 sets, daily range): BP systolic 103–155; BP diastolic 64–94
[2022-12-19] MEDS ORDERED: MORPHINE 2 MG SYG IVP ONE
[2022-12-19] MEDS: D5W-1/2 NS/20MEQ KCL 1,000 ML IV SCH ×3 (01:46→18:00)
[2022-12-19] MEDS: LINEZOLID 600 MG/ISO-OSM 300 ML IV SCH ×3 (02:28→16:20)
[2022-12-19] MEDS: 0.9%NACL 1000ML 1,000 ML IV SCH ×2 (02:28→15:50)
[2022-12-19] MEDS: HYDROMORPHONE 1 MG INJ IVP PRN ×3 (02:29→10:57)
[2022-12-19] MEDS: FAMOTIDINE 20MG VIAL IV SCH ×2 (08:24→21:17)
[2022-12-19 11:27] LABS: HEMATOCRIT 44.4 % (42-54); MEAN CORPUSCULAR HEMOGLOBIN 30.5 pg (27.0-33.0); MEAN CORPUSCULAR HGB CONC 32.9 g/dL (32.0-36.0); MEAN CORPUSCULAR VOLUME 92.7 fL (79-99); RED BLOOD CELL COUNT(AUTO) 4.79 MIL/uL (4.50-6.20); RED CELL DISTRIBUTION WIDTH 12.8 % (11.0-15.5); WHITE BLOOD COUNT (AUTO) 17.3 K/uL (4.8-10.8)
[2022-12-19 11:50] LABS: ALBUMIN 3.2 g/dL (3.5-5.0); CREATININE 1.1 mg/dL (0.5-1.5); POTASSIUM 4.2 mmol/L (3.5-5.1); TOTAL PROTEIN, SERUM 7.3 g/dL (6.0-8.3)
[2022-12-19] MEDS: FLUCONAZOLE 200 MG/NS 100 ML 100 ML IV SCH (13:23)
[2022-12-19] MEDS: CIPROFLOXACIN HCL 500 MG TABLET PO SCH ×2 (13:23→14:00)
[2022-12-19] MEDS ORDERED: PROPOFOL 10 MG/ML 20ML VIAL IV ONE ×2 (14:29→15:13)
[2022-12-19] MEDS ORDERED: ONDANSETRON 4MG INJ ONE ×2 (14:29→18:11)
[2022-12-19] MEDS ORDERED: LIDOCAINE PF 100MG/5ML (2%) SYRINGE 5ML ONE (14:29)
[2022-12-19] MEDS ORDERED: SUCCINYLCHOLINE CHLORIDE 20 MG/ML 10 ML VIAL ONE (14:29)
[2022-12-19] MEDS ORDERED: GLYCOPYRROLATE 1 MG/5 ML SYRINGE ONE (14:29)
[2022-12-19] MEDS ORDERED: DEXAMETHASONE SOD PHOSPHATE 10MG/ML 1ML VIAL ONE (14:29)
[2022-12-19] MEDS ORDERED: FENTANYL CITRATE PF 50 MCG/1 ML 2ML VIAL ONE ×3 (14:29→18:13)
[2022-12-19] MEDS ORDERED: ROCURONIUM 10MG/1ML SYR 10 MG/ML ML ONE ×3 (14:30→17:33)
[2022-12-19] MEDS ORDERED: MIDAZOLAM HCL 1 MG/ML 2ML VIAL ONE (14:30)
[2022-12-19] MEDS ORDERED: LACTATED RINGERS 1000ML 1,000 ML IV ONE (14:32)
[2022-12-19] MEDS ORDERED: PHARMACY COMMUNICATION MISC SCH (15:00)
[2022-12-19] MEDS ORDERED: MEPERIDINE-PF 25 MG/ML SYG ONE ×2 (18:58→19:23)
[2022-12-19] MEDS: DOCUSATE SODIUM 100 MG CAP PO SCH (21:00)
[2022-12-19] MEDS: MEROPENEM 1 GM VIAL IVP SCH (21:17)
[2022-12-19] MEDS: LACTATED RINGERS 1000ML 1,000 ML IV SCH (22:00)
[2022-12-19] MEDS: HYDROMORPHONE 0.5 MG SYG (0.5MG/0.5ML) IVP PRN (22:27)
[2022-12-20] VITALS (8 sets, daily range): BP systolic 114–155; BP diastolic 66–86
[2022-12-20] MEDS ORDERED: KETOROLAC 30MG VIAL (30MG/ML) IM PRN
[2022-12-20] MEDS: D5W-1/2 NS/20MEQ KCL 1,000 ML IV SCH (01:04)
[2022-12-20] MEDS: LINEZOLID 600 MG/ISO-OSM 300 ML IV SCH ×2 (02:06→14:15)
[2022-12-20] MEDS: HYDROMORPHONE 0.5 MG SYG (0.5MG/0.5ML) IVP PRN (03:25)
[2022-12-20] MEDS: MEROPENEM 1 GM VIAL IVP SCH ×3 (04:31→20:09)
[2022-12-20] MEDS: 0.9%NACL 1000ML 1,000 ML IV SCH (04:40)
[2022-12-20] MEDS: KETOROLAC 30MG VIAL (30MG/ML) IVP PRN ×4 (05:10→23:43)
[2022-12-20 05:21] LABS: BASOPHILS % (AUTO) 0.1 % (0.0-5.0); LYMPHOCYTES % (AUTO) 6.6 % (21.0-51.0); MEAN CORPUSCULAR HGB CONC 32.8 g/dL (32.0-36.0); MEAN CORPUSCULAR VOLUME 91.7 fL (79-99); MONOCYTES % (AUTO) 3.5 % (3.0-13.0); NEUTROPHILS % (AUTO) 89.1 % (40.0-77.0); PLATELET COUNT (AUTO) 607 K/uL (130-400); RED BLOOD CELL COUNT(AUTO) 4.36 MIL/uL (4.50-6.20); RED CELL DISTRIBUTION WIDTH 13.1 % (11.0-15.5)
[2022-12-20 06:01] LABS: ALBUMIN 2.7 g/dL (3.5-5.0); TOTAL PROTEIN, SERUM 6.5 g/dL (6.0-8.3)
[2022-12-20] MEDS: ENOXAPARIN SODIUM 40 MG/0.4 ML SYRINGE SQ SCH (08:29)
[2022-12-20] MEDS: FAMOTIDINE 20MG VIAL IV SCH ×2 (08:29→20:09)
[2022-12-20] MEDS: HYDROMORPHONE 1 MG INJ IVP PRN ×3 (08:29→20:09)
[2022-12-20] MEDS: LACTATED RINGERS 1000ML 1,000 ML IV SCH (12:37)
[2022-12-20 14:13] LABS: HEMATOCRIT 37.7 % (42-54); MEAN CORPUSCULAR HEMOGLOBIN 30.5 pg (27.0-33.0); MEAN CORPUSCULAR HGB CONC 32.9 g/dL (32.0-36.0); MEAN CORPUSCULAR VOLUME 92.9 fL (79-99); RED BLOOD CELL COUNT(AUTO) 4.06 MIL/uL (4.50-6.20); WHITE BLOOD COUNT (AUTO) 17.9 K/uL (4.8-10.8)
[2022-12-20] MEDS: FLUCONAZOLE 200 MG/NS 100 ML 100 ML IV SCH (14:15)
[2022-12-20] MEDS: DOCUSATE SODIUM 100 MG CAP PO SCH (19:57)
[2022-12-21] MEDS: LACTATED RINGERS 1000ML 1,000 ML IV SCH (00:16)
[2022-12-21 00:33] LABS: BASOPHILS % (AUTO) 0.2 % (0.0-5.0); EOSINOPHILS % (AUTO) 0.1 % (0.0-8.0); HEMATOCRIT 35.1 % (42-54); LYMPHOCYTES % (AUTO) 11.8 % (21.0-51.0); MEAN CORPUSCULAR HEMOGLOBIN 30.1 pg (27.0-33.0); MEAN CORPUSCULAR HGB CONC 31.9 g/dL (32.0-36.0); MEAN CORPUSCULAR VOLUME 94.4 fL (79-99); MONOCYTES % (AUTO) 5.9 % (3.0-13.0); NEUTROPHILS % (AUTO) 81.5 % (40.0-77.0); PLATELET COUNT (AUTO) 504 K/uL (130-400); RED BLOOD CELL COUNT(AUTO) 3.72 MIL/uL (4.50-6.20); RED CELL DISTRIBUTION WIDTH 13.2 % (11.0-15.5); WHITE BLOOD COUNT (AUTO) 17.7 K/uL (4.8-10.8)
[2022-12-21] MEDS: HYDROMORPHONE 1 MG INJ IVP PRN ×2 (01:01→06:43)
[2022-12-21] MEDS: LINEZOLID 600 MG/ISO-OSM 300 ML IV SCH ×2 (03:02→15:00)
[2022-12-21 03:44] VITALS: BP 107/59
[2022-12-21] MEDS: MEROPENEM 1 GM VIAL IVP SCH ×3 (04:33→20:44)
[2022-12-21 04:41] LABS: BASOPHILS % (AUTO) 0.1 % (0.0-5.0); EOSINOPHILS % (AUTO) 0.2 % (0.0-8.0); HEMATOCRIT 30.8 % (42-54); LYMPHOCYTES % (AUTO) 15.3 % (21.0-51.0); MEAN CORPUSCULAR HEMOGLOBIN 30.5 pg (27.0-33.0); MEAN CORPUSCULAR HGB CONC 32.8 g/dL (32.0-36.0); MEAN CORPUSCULAR VOLUME 93.1 fL (79-99); MONOCYTES % (AUTO) 5.7 % (3.0-13.0); NEUTROPHILS % (AUTO) 78.2 % (40.0-77.0); PLATELET COUNT (AUTO) 414 K/uL (130-400); RED BLOOD CELL COUNT(AUTO) 3.31 MIL/uL (4.50-6.20); RED CELL DISTRIBUTION WIDTH 13.1 % (11.0-15.5); WHITE BLOOD COUNT (AUTO) 15.1 K/uL (4.8-10.8)
[2022-12-21 04:51] LABS: ALBUMIN 2.4 g/dL (3.5-5.0); CREATININE 0.8 mg/dL (0.5-1.5); POTASSIUM 3.6 mmol/L (3.5-5.1); TOTAL PROTEIN, SERUM 5.8 g/dL (6.0-8.3)
[2022-12-21 08:24] VITALS: BP 92/52
[2022-12-21] MEDS: FAMOTIDINE 20MG VIAL IV SCH ×2 (09:10→20:44)
[2022-12-21] MEDS: ENOXAPARIN SODIUM 40 MG/0.4 ML SYRINGE SQ SCH (09:10)
[2022-12-21] MEDS: KETOROLAC 30MG VIAL (30MG/ML) IVP PRN ×2 (09:13→20:53)
[2022-12-21 12:00] VITALS: BP 104/55
[2022-12-21] MEDS: KCL 20 MEQ ERTAB PO PRN ×2 (12:37→20:45)
[2022-12-21] MEDS: HYDROCODONE/ACETAMINOPHEN 10/325 MG TAB PO PRN ×2 (12:38→18:27)
[2022-12-21] MEDS: FLUCONAZOLE 200 MG/NS 100 ML 100 ML IV SCH (15:02)
[2022-12-21 16:00] VITALS: BP 102/58
[2022-12-21 19:21] VITALS: BP 113/69
[2022-12-21] MEDS: DOCUSATE SODIUM 100 MG CAP PO SCH (20:28)
[2022-12-21 23:11] VITALS: BP 114/62
[2022-12-22] MEDS: HYDROCODONE/ACETAMINOPHEN 10/325 MG TAB PO PRN ×4 (01:36→23:19)
[2022-12-22] MEDS: LINEZOLID 600 MG/ISO-OSM 300 ML IV SCH ×2 (02:13→15:26)
[2022-12-22 03:37] VITALS: BP 114/71
[2022-12-22] MEDS: MEROPENEM 1 GM VIAL IVP SCH ×3 (04:06→20:20)
[2022-12-22 04:34] LABS: BASOPHILS % (AUTO) 0.3 % (0.0-5.0); EOSINOPHILS % (AUTO) 1.8 % (0.0-8.0); HEMATOCRIT 30.2 % (42-54); LYMPHOCYTES % (AUTO) 35.9 % (21.0-51.0); MEAN CORPUSCULAR HEMOGLOBIN 30.4 pg (27.0-33.0); MEAN CORPUSCULAR HGB CONC 31.8 g/dL (32.0-36.0); MEAN CORPUSCULAR VOLUME 95.6 fL (79-99); MONOCYTES % (AUTO) 6.5 % (3.0-13.0); NEUTROPHILS % (AUTO) 55.2 % (40.0-77.0); PLATELET COUNT (AUTO) 386 K/uL (130-400); RED BLOOD CELL COUNT(AUTO) 3.16 MIL/uL (4.50-6.20); WHITE BLOOD COUNT (AUTO) 9.5 K/uL (4.8-10.8)
[2022-12-22 05:02] LABS: ALBUMIN 2.4 g/dL (3.5-5.0); CREATININE 0.9 mg/dL (0.5-1.5); POTASSIUM 3.8 mmol/L (3.5-5.1); TOTAL PROTEIN, SERUM 5.8 g/dL (6.0-8.3)
[2022-12-22 07:35] VITALS: BP 112/66
[2022-12-22] MEDS: KETOROLAC 30MG VIAL (30MG/ML) IVP PRN ×2 (08:30→20:20)
[2022-12-22] MEDS: FAMOTIDINE 20MG VIAL IV SCH ×2 (08:40→20:21)
[2022-12-22] MEDS: ENOXAPARIN SODIUM 40 MG/0.4 ML SYRINGE SQ SCH (08:41)
[2022-12-22 11:35] VITALS: BP 115/75
[2022-12-22] MEDS: FLUCONAZOLE 200 MG/NS 100 ML 100 ML IV SCH (14:13)
[2022-12-22] MEDS: KCL 20 MEQ ERTAB PO PRN (14:14)
[2022-12-22 15:35] VITALS: BP 131/76
[2022-12-22 19:15] VITALS: BP 132/75
[2022-12-22] MEDS: DOCUSATE SODIUM 100 MG CAP PO SCH (21:00)
[2022-12-23] VITALS (7 sets, daily range): BP systolic 109–131; BP diastolic 70–85
[2022-12-23] MEDS: MEROPENEM 1 GM VIAL IVP SCH ×3 (03:49→20:38)
[2022-12-23] MEDS: LINEZOLID 600 MG/ISO-OSM 300 ML IV SCH (03:49)
[2022-12-23 07:43] LABS: HEMATOCRIT 32.8 % (42-54); MEAN CORPUSCULAR HEMOGLOBIN 30.3 pg (27.0-33.0); MEAN CORPUSCULAR VOLUME 94.8 fL (79-99); RED BLOOD CELL COUNT(AUTO) 3.46 MIL/uL (4.50-6.20); RED CELL DISTRIBUTION WIDTH 12.9 % (11.0-15.5); WHITE BLOOD COUNT (AUTO) 8.7 K/uL (4.8-10.8)
[2022-12-23 08:02] LABS: ALBUMIN 2.5 g/dL (3.5-5.0); CREATININE 0.9 mg/dL (0.5-1.5); POTASSIUM 4.2 mmol/L (3.5-5.1); TOTAL PROTEIN, SERUM 6.1 g/dL (6.0-8.3)
[2022-12-23] MEDS: FAMOTIDINE 20MG VIAL IV SCH ×2 (08:08→20:38)
[2022-12-23] MEDS: KETOROLAC 30MG VIAL (30MG/ML) IVP PRN (08:08)
[2022-12-23] MEDS: ENOXAPARIN SODIUM 40 MG/0.4 ML SYRINGE SQ SCH (08:09)
[2022-12-23] MEDS: FLUCONAZOLE 200 MG/NS 100 ML 100 ML IV SCH (12:27)
[2022-12-23] MEDS: HYDROCODONE/ACETAMINOPHEN 10/325 MG TAB PO PRN ×2 (14:49→20:40)
[2022-12-24] MEDS: MEROPENEM 1 GM VIAL IVP SCH ×3 (03:44→20:42)
[2022-12-24] MEDS: HYDROCODONE/ACETAMINOPHEN 10/325 MG TAB PO PRN ×4 (03:48→23:21)
[2022-12-24 03:53] VITALS: BP 114/83
[2022-12-24 06:06] LABS: HEMATOCRIT 33.4 % (42-54); MEAN CORPUSCULAR HEMOGLOBIN 29.8 pg (27.0-33.0); MEAN CORPUSCULAR HGB CONC 31.7 g/dL (32.0-36.0); MEAN CORPUSCULAR VOLUME 93.8 fL (79-99); RED BLOOD CELL COUNT(AUTO) 3.56 MIL/uL (4.50-6.20); RED CELL DISTRIBUTION WIDTH 12.7 % (11.0-15.5); WHITE BLOOD COUNT (AUTO) 8.8 K/uL (4.8-10.8)
[2022-12-24 06:25] LABS: ALBUMIN 2.5 g/dL (3.5-5.0); CREATININE 0.9 mg/dL (0.5-1.5); POTASSIUM 4.3 mmol/L (3.5-5.1); TOTAL PROTEIN, SERUM 6.2 g/dL (6.0-8.3)
[2022-12-24 08:00] VITALS: BP 110/69
[2022-12-24] MEDS: ENOXAPARIN SODIUM 40 MG/0.4 ML SYRINGE SQ SCH (10:28)
[2022-12-24] MEDS: FAMOTIDINE 20MG VIAL IV SCH ×2 (10:28→20:43)
[2022-12-24 12:00] VITALS: BP 137/73
[2022-12-24] MEDS: FLUCONAZOLE 200 MG/NS 100 ML 100 ML IV SCH (13:50)
[2022-12-24 16:00] VITALS: BP 120/82
[2022-12-24 20:00] VITALS: BP 133/74
[2022-12-25] VITALS: BP 126/76
[2022-12-25] MEDS: MEROPENEM 1 GM VIAL IVP SCH ×3 (03:48→20:55)
[2022-12-25 04:00] VITALS: BP 121/73
[2022-12-25 04:51] LABS: BASOPHILS % (AUTO) 0.5 % (0.0-5.0); EOSINOPHILS % (AUTO) 4.6 % (0.0-8.0); HEMATOCRIT 32.6 % (42-54); LYMPHOCYTES % (AUTO) 37.3 % (21.0-51.0); MEAN CORPUSCULAR HEMOGLOBIN 30.4 pg (27.0-33.0); MEAN CORPUSCULAR HGB CONC 33.1 g/dL (32.0-36.0); MEAN CORPUSCULAR VOLUME 91.8 fL (79-99); MONOCYTES % (AUTO) 6.9 % (3.0-13.0); NEUTROPHILS % (AUTO) 50.4 % (40.0-77.0); PLATELET COUNT (AUTO) 348 K/uL (130-400); RED BLOOD CELL COUNT(AUTO) 3.55 MIL/uL (4.50-6.20); RED CELL DISTRIBUTION WIDTH 12.5 % (11.0-15.5); WHITE BLOOD COUNT (AUTO) 7.7 K/uL (4.8-10.8)
[2022-12-25 05:03] LABS: ALBUMIN 2.6 g/dL (3.5-5.0); CREATININE 0.7 mg/dL (0.5-1.5); MAGNESIUM 2.2 mg/dL (1.80-2.40); POTASSIUM 3.7 mmol/L (3.5-5.1); TOTAL PROTEIN, SERUM 6.3 g/dL (6.0-8.3)
[2022-12-25] MEDS: HYDROCODONE/ACETAMINOPHEN 10/325 MG TAB PO PRN ×2 (05:32→11:45)
[2022-12-25 08:00] VITALS: BP 110/74
[2022-12-25] MEDS: FAMOTIDINE 20MG VIAL IV SCH ×2 (11:43→20:55)
[2022-12-25] MEDS: ENOXAPARIN SODIUM 40 MG/0.4 ML SYRINGE SQ SCH (11:44)
[2022-12-25 11:59] VITALS: BP 108/66
[2022-12-25] MEDS: FLUCONAZOLE 200 MG/NS 100 ML 100 ML IV SCH (14:37)
[2022-12-25 16:00] VITALS: BP 128/84
[2022-12-25] MEDS: ACETAMINOPHEN WITH CODEINE 1 TAB TAB PO PRN (18:54)
[2022-12-25 20:00] VITALS: BP 116/77
[2022-12-26] VITALS: BP 111/54
[2022-12-26] MEDS: ACETAMINOPHEN WITH CODEINE 1 TAB TAB PO PRN ×4 (01:12→18:38)
[2022-12-26 04:00] VITALS: BP 119/75
[2022-12-26 04:58] LABS: BASOPHILS % (AUTO) 0.5 % (0.0-5.0); HEMATOCRIT 33.8 % (42-54); MEAN CORPUSCULAR HEMOGLOBIN 29.9 pg (27.0-33.0); MEAN CORPUSCULAR HGB CONC 32.8 g/dL (32.0-36.0); MEAN CORPUSCULAR VOLUME 91.1 fL (79-99); MONOCYTES % (AUTO) 7.3 % (3.0-13.0); NEUTROPHILS % (AUTO) 50.1 % (40.0-77.0); PLATELET COUNT (AUTO) 358 K/uL (130-400); RED BLOOD CELL COUNT(AUTO) 3.71 MIL/uL (4.50-6.20); RED CELL DISTRIBUTION WIDTH 12.6 % (11.0-15.5); WHITE BLOOD COUNT (AUTO) 8.3 K/uL (4.8-10.8)
[2022-12-26] MEDS: MEROPENEM 1 GM VIAL IVP SCH ×3 (05:20→19:42)
[2022-12-26 05:22] LABS: ALBUMIN 2.8 g/dL (3.5-5.0); CREATININE 0.8 mg/dL (0.5-1.5); POTASSIUM 3.8 mmol/L (3.5-5.1); TOTAL PROTEIN, SERUM 6.8 g/dL (6.0-8.3)
[2022-12-26 08:00] VITALS: BP 132/79
[2022-12-26 08:11] LABS: INR 1.1 (0.85-1.15); PROTHROMBIN TIME 11.9 SEC (9.6-11.6)
[2022-12-26 08:12] LABS: PARTIAL THROMBOPLASTIN TIME 34.5 SEC (26.3-35.5)
[2022-12-26] MEDS: FAMOTIDINE 20MG VIAL IV SCH ×2 (08:19→19:45)
[2022-12-26] MEDS: ENOXAPARIN SODIUM 40 MG/0.4 ML SYRINGE SQ SCH (08:19)
[2022-12-26] MEDS: KCL 20 MEQ ERTAB PO PRN ×2 (08:20→12:59)
[2022-12-26 12:00] VITALS: BP 126/75
[2022-12-26] MEDS: FLUCONAZOLE 200 MG/NS 100 ML 100 ML IV SCH (12:59)
[2022-12-26 16:00] VITALS: BP 114/72
[2022-12-26 20:00] VITALS: BP 116/71
[2022-12-27] VITALS: BP 112/79
[2022-12-27] MEDS: ACETAMINOPHEN WITH CODEINE 1 TAB TAB PO PRN ×4 (00:25→21:04)
[2022-12-27 04:00] VITALS: BP 118/76
[2022-12-27] MEDS: MEROPENEM 1 GM VIAL IVP SCH ×3 (04:08→20:46)
[2022-12-27 05:30] LABS: BASOPHILS % (AUTO) 0.3 % (0.0-5.0); EOSINOPHILS % (AUTO) 3.1 % (0.0-8.0); LYMPHOCYTES % (AUTO) 34.3 % (21.0-51.0); MEAN CORPUSCULAR HGB CONC 33.4 g/dL (32.0-36.0); MEAN CORPUSCULAR VOLUME 89.7 fL (79-99); MONOCYTES % (AUTO) 7.5 % (3.0-13.0); NEUTROPHILS % (AUTO) 54.6 % (40.0-77.0); PLATELET COUNT (AUTO) 368 K/uL (130-400); RED CELL DISTRIBUTION WIDTH 12.7 % (11.0-15.5); WHITE BLOOD COUNT (AUTO) 9.1 K/uL (4.8-10.8)
[2022-12-27 05:43] LABS: ALBUMIN 3.1 g/dL (3.5-5.0); CREATININE 0.9 mg/dL (0.5-1.5); POTASSIUM 4.2 mmol/L (3.5-5.1); TOTAL PROTEIN, SERUM 7.1 g/dL (6.0-8.3)
[2022-12-27 08:00] VITALS: BP 128/83
[2022-12-27] MEDS: ENOXAPARIN SODIUM 40 MG/0.4 ML SYRINGE SQ SCH (08:37)
[2022-12-27] MEDS: FAMOTIDINE 20MG VIAL IV SCH ×2 (08:37→20:47)
[2022-12-27 11:00] VITALS: BP 119/73
[2022-12-27] MEDS: FLUCONAZOLE 200 MG/NS 100 ML 100 ML IV SCH (14:34)
[2022-12-27 16:00] VITALS: BP 114/76
[2022-12-27 20:00] VITALS: BP 120/78
[2022-12-28] VITALS: BP 105/68
[2022-12-28] MEDS: ACETAMINOPHEN WITH CODEINE 1 TAB TAB PO PRN ×4 (03:38→16:11)
[2022-12-28 04:00] VITALS: BP 112/69
[2022-12-28] MEDS: MEROPENEM 1 GM VIAL IVP SCH ×2 (04:44→11:51)
[2022-12-28 07:30] VITALS: BP 141/78
[2022-12-28] MEDS: FAMOTIDINE 20MG VIAL IV SCH (08:14)
[2022-12-28] MEDS: ENOXAPARIN SODIUM 40 MG/0.4 ML SYRINGE SQ SCH (08:16)
[2022-12-28 11:30] VITALS: BP 119/73
[2022-12-28] MEDS: FLUCONAZOLE 200 MG/NS 100 ML 100 ML IV SCH (13:07)
[2022-12-31] MEDS ORDERED: ACET-2079 PO (06:29)
[2022-12-31] MEDS ORDERED: DOCU-116 PO (06:29)
[2022-12-31] MEDS ORDERED: METR500P3 IV (06:29)
== END 2022-12-28 18:00 | disposition home or self-care (01) | DRG 710 ==
LOC: EDH 10:15 → EDHIP 10:16 → 4CH 16:30
PROVIDERS: ADMIT Internal Medicine; ATTEND Internal Medicine
PROC: 0W9G30Z Drainage of Peritoneal Cavity with Drainage Device, Percutaneous Approach (ICD-10-PCS; 2022-12-07)
PROC: 0D1B0Z4 Bypass Ileum to Cutaneous, Open Approach (ICD-10-PCS; 2022-12-19)
PROC: 0DTN0ZZ Resection of Sigmoid Colon, Open Approach (ICD-10-PCS; 2022-12-19)
PROC: 0W9J30Z Drainage of Pelvic Cavity with Drainage Device, Percutaneous Approach (ICD-10-PCS; principal; 2022-12-19 16:10)
DX: A41.50 Gram-negative sepsis, unspecified (principal); K65.0 Generalized (acute) peritonitis; N17.9 Acute kidney failure, unspecified; K57.20 Diverticulitis of large intestine with perforation and abscess without bleeding; E87.1 Hypo-osmolality and hyponatremia; R16.0 Hepatomegaly, not elsewhere classified; R62.7 Adult failure to thrive; Z20.822 Contact with and (suspected) exposure to COVID-19; K76.0 Fatty (change of) liver, not elsewhere classified; E86.1 Hypovolemia; E87.6 Hypokalemia; N50.819 Testicular pain, unspecified; K59.00 Constipation, unspecified; E66.01 Morbid (severe) obesity due to excess calories; R65.20 Severe sepsis without septic shock; K65.1 Peritoneal abscess; D64.9 Anemia, unspecified; D75.838 Other thrombocytosis; I10 Essential (primary) hypertension; I49.3 Ventricular premature depolarization; Z16.24 Resistance to multiple antibiotics; Z68.36 Body mass index [BMI] 36.0-36.9, adult; Z82.49 Family history of ischemic heart disease and other diseases of the circulatory system; Z83.3 Family history of diabetes mellitus; Z74.01 Bed confinement status
CPT/HCPCS: 10030; 36415; 71045; 74018; 74176; 74177; 77012; 80048; 80053; 80202; 81001; 82550; 83036; 83605; 83735; 83874; 84100; 84132; 84145; 84443; 84484; 85025; 85027; 85610; 85651; 85730; 86140; 87040; 87071; 87077; 87186; 87205; 87635; 87804; 93005; 94640; 96361; 96365; 96366; 96367; 96375; 96376; 97039; A4344; A5063; C1894; C9803; G0378; J0330; J1100; J1170; J1450; J1650; J1885; J2001; J2020; J2175; J2185; J2250; J2405; J2543; J2704; J3010; J3480; J3490; J7030; J7042; J7120; Q9963; Q9967

== ENCOUNTER 2023-01-14 01:45 | Observation (INO) | payer MEDICAID ==
[~2023-01-14] VITALS: Ht 177.8 cm; Wt 98.2 kg
[~2023-01-14 01:45] MED LIST changes: +ACET-2079 PO; -CEPH500B PO; +DOCU-116 PO; +METR500P3 IV
[2023-01-14 04:10] LABS: BASOPHILS % (AUTO) 0.3 % (0.0-5.0); EOSINOPHILS % (AUTO) 2.4 % (0.0-8.0); HEMATOCRIT 37.4 % (42-54); LYMPHOCYTES % (AUTO) 44.6 % (21.0-51.0); MEAN CORPUSCULAR HEMOGLOBIN 29.6 pg (27.0-33.0); MEAN CORPUSCULAR HGB CONC 32.4 g/dL (32.0-36.0); MEAN CORPUSCULAR VOLUME 91.4 fL (79-99); MONOCYTES % (AUTO) 5.5 % (3.0-13.0); NEUTROPHILS % (AUTO) 46.9 % (40.0-77.0); PLATELET COUNT (AUTO) 331 K/uL (130-400); RED BLOOD CELL COUNT(AUTO) 4.09 MIL/uL (4.50-6.20); RED CELL DISTRIBUTION WIDTH 12.4 % (11.0-15.5); WHITE BLOOD COUNT (AUTO) 7.5 K/uL (4.8-10.8)
[2023-01-14 04:23] LABS: CREATININE 0.8 mg/dL (0.5-1.5); POTASSIUM 3.5 mmol/L (3.5-5.1)
[2023-01-14 04:27] LABS: ALBUMIN 3.9 g/dL (3.5-5.0); TOTAL PROTEIN, SERUM 7.4 g/dL (6.0-8.3)
[2023-01-14] MEDS ORDERED: MAG/ALUM/SIMETH 30 ML UDCUP PO PRN (05:00)
[2023-01-14] MEDS ORDERED: MORPHINE 4 MG SYG IVP ONE (05:00)
[2023-01-14] MEDS ORDERED: ONDANSETRON 4MG INJ IV PRN (05:00)
[2023-01-14] MEDS ORDERED: DIPHENHYDRAMINE HCL 25 MG CAPSULE PO PRN (05:00)
[2023-01-14] MEDS ORDERED: ACETAMINOPHEN 325 MG TAB PO PRN ×2 (05:00)
[2023-01-14] MEDS ORDERED: LACTULOSE 20 GM/30 ML UDCUP PO PRN (05:00)
[2023-01-14 05:24] LABS: APPEARANCE,URINE CLEAR (CLEAR); BILIRUBIN,URINE NEGATIVE (NEGATIVE); COLOR,URINE YELLOW (YELLOW); GLUCOSE, URINE (UA) NEGATIVE (NEGATIVE); KETONES,URINE 5 mg/dL (NEGATIVE); LEUKOCYTE ESTERASE ,URINE NEGATIVE Leu/uL (NEGATIVE); NITRATE,URINE NEGATIVE (NEGATIVE); OCCULT BLOOD,URINE NEGATIVE (NEGATIVE); PROTEIN,URINE 20 mg/dL (NEGATIVE)
[2023-01-14 05:30] LABS: BACTERIA,URINE FEW /HPF (None Seen); MUCUS,URINE RARE LPF (None Seen)
[2023-01-14] MEDS: MORPHINE 4 MG SYG IV PRN ×3 (06:38→21:58)
[2023-01-14] MEDS ORDERED: MERO1VIA23 IV (09:44)
[2023-01-14 10:05] VITALS: BP 120/64
[2023-01-14] MEDS: ACETAMINOPHEN WITH CODEINE 1 TAB TAB PO PRN (12:12)
[2023-01-14 16:43] VITALS: BP 102/66
[2023-01-14] MEDS: MEROPENEM 1 GM VIAL IV SCH (19:21)
[2023-01-14 21:04] VITALS: BP 113/63
[2023-01-15] VITALS: BP 107/66
[2023-01-15] MEDS: MEROPENEM 1 GM VIAL IV SCH ×2 (01:49→10:49)
[2023-01-15] MEDS: MORPHINE 4 MG SYG IV PRN ×2 (03:31→10:51)
[2023-01-15 04:14] VITALS: BP 102/66
[2023-01-15 07:45] VITALS: BP 108/72
[2023-01-15 11:00] VITALS: BP 113/70
[2023-01-15 16:00] VITALS: BP 116/78
[2023-01-15] MEDS: ACETAMINOPHEN WITH CODEINE 1 TAB TAB PO PRN (16:30)
[2023-01-16] MEDS ORDERED: CEFU500T67 PO (23:45)
== END 2023-01-15 18:45 | disposition home or self-care (01) ==
LOC: EDH 01:45 → EDHIP 01:46 → 4CH 10:25
PROVIDERS: ADMIT Internal Medicine; ATTEND Internal Medicine
DX: K57.80 Diverticulitis of intestine, part unspecified, with perforation and abscess without bleeding (principal); L03.311 Cellulitis of abdominal wall; L25.3 Unspecified contact dermatitis due to other chemical products; E66.9 Obesity, unspecified; R53.81 Other malaise; Z93.3 Colostomy status; Z93.2 Ileostomy status; Z79.899 Other long term (current) drug therapy
CPT/HCPCS: 96374; 96376 ×2; 96375; 99284; 80053; 85025; 81001; 36415; G0378 ×38; J2270 ×6; J2185 ×3

== ENCOUNTER 2023-01-16 22:50 | Emergency (ER) | payer MEDICAID ==
[~2023-01-16] VITALS: Ht 177.8 cm; Wt 98.4 kg
[~2023-01-16 22:50] MED LIST changes: +MERO1VIA23 IV; -METR500P3 IV
[2023-01-16] MEDS ORDERED: CEPHALEXIN 500 MG CAPSULE PO ONE (23:30)
[2023-01-16 23:42] VITALS: BP 124/80
[2023-01-16] MEDS ORDERED: CEFU500T67 PO (23:45)
[2023-01-17] MEDS ORDERED: ACETAMINOPHEN WITH CODEINE 1 TAB TAB PO ONE
== END 2023-01-16 23:55 | disposition home or self-care (01) ==
LOC: EDH 22:50
DX: R10.9 Unspecified abdominal pain (principal); Z93.2 Ileostomy status; Z79.899 Other long term (current) drug therapy; Z98.890 Other specified postprocedural states

== ENCOUNTER → 2023-03-12 | Outpatient (CLI) | payer MEDICAID ==
[~2023-03-12] MED LIST changes: +CEFU500T67 PO; +DIATR MEGLU/DIATRIZOATE SODIUM 30 ML BOTTLE ONE
== END | disposition home or self-care (01) ==
LOC: RAH 09:10
PROVIDERS: ATTEND Surgery
DX: K57.00 Diverticulitis of small intestine with perforation and abscess without bleeding (principal); K57.20 Diverticulitis of large intestine with perforation and abscess without bleeding; Z93.2 Ileostomy status
CPT/HCPCS: 74270; Q9963 ×2

== ENCOUNTER 2023-05-10 09:00 | Inpatient (IN) | payer MEDICAID ==
[~2023-05-10] VITALS: Ht 177.8 cm; Wt 104.8 kg
[~2023-05-10 09:00] MED LIST changes: -DIATR MEGLU/DIATRIZOATE SODIUM 30 ML BOTTLE ONE
[2023-05-10 15:07] LABS: BASOPHILS # (AUTO) 0.04 K/uL (0.00-0.20); BASOPHILS % (AUTO) 0.4 % (0.0-5.0); EOSINOPHILS # (AUTO) 0.15 K/uL (0.00-0.70); EOSINOPHILS % (AUTO) 1.5 % (0.0-8.0); HEMATOCRIT 43.4 % (42-54); IMMATURE GRANULOCYTE ABSOLUTE 0.02 K/uL (0-1); LYMPHOCYTES # (AUTO) 4.3 K/uL (1.0-4.8); LYMPHOCYTES % (AUTO) 42.3 % (21.0-51.0); MEAN CORPUSCULAR HEMOGLOBIN 30.6 pg (27.0-33.0); MEAN CORPUSCULAR HGB CONC 34.1 g/dL (32.0-36.0); MEAN CORPUSCULAR VOLUME 89.9 fL (79-99); MONOCYTES # (AUTO) 0.6 K/uL (0.1-1.0); MONOCYTES % (AUTO) 6.2 % (3.0-13.0); NEUTROPHILS % (AUTO) 49.4 % (40.0-77.0); PLATELET COUNT (AUTO) 366 K/uL (130-400); RED BLOOD CELL COUNT(AUTO) 4.83 MIL/uL (4.50-6.20); WHITE BLOOD COUNT (AUTO) 10.1 K/uL (4.8-10.8)
[2023-05-10 15:19] LABS: POTASSIUM 3.4 mmol/L (3.5-5.1); PROTHROMBIN TIME 11.6 SEC (9.6-11.6)
[2023-05-10 15:20] LABS: PARTIAL THROMBOPLASTIN TIME 31.5 SEC (26.3-35.5)
[2023-05-10] MEDS ORDERED: PARO10TA71 PO (15:41)
[2023-05-10] MEDS ORDERED: TRAM100T40 PO (15:41)
[2023-05-10 15:54] VITALS: BP 119/78; PULSE 81; RESP 18
[2023-05-13] VITALS (26 sets, daily range): BP systolic 125–165; BP diastolic 78–111; PULSE 55–76; RESP 10–20; O2SAT 98
[2023-05-13] MEDS ORDERED: LACTATED RINGERS 1000ML 1,000 ML IV ONE (08:43)
[2023-05-13] MEDS ORDERED: CEFAZOLIN SODIUM 1 GM VIAL ONE (08:43)
[2023-05-13] MEDS ORDERED: METRONIDAZOLE 500MG/100ML BAG 100 ML ONE (11:53)
[2023-05-13] MEDS ORDERED: KETAMINE 50MG/ML SYRINGE 50 MG/ML DISP.SYRIN ONE (12:42)
[2023-05-13] MEDS ORDERED: ROPIVACAINE 0.5% 5MG/ML 30ML IJ ONE (12:42)
[2023-05-13] MEDS ORDERED: LIDOCAINE PF 100MG/5ML (2%) SYRINGE 5ML ONE (12:43)
[2023-05-13] MEDS ORDERED: FENTANYL CITRATE PF 50 MCG/1 ML 2ML VIAL ONE ×4 (12:44→14:44)
[2023-05-13] MEDS ORDERED: ROCURONIUM 10MG/1ML SYR 10 MG/ML ML ONE ×3 (12:44→13:36)
[2023-05-13] MEDS ORDERED: SUCCINYLCHOLINE CHLORIDE 20 MG/ML 10 ML VIAL ONE (12:44)
[2023-05-13] MEDS ORDERED: PROPOFOL 10 MG/ML 20ML VIAL IV ONE (12:44)
[2023-05-13] MEDS ORDERED: MIDAZOLAM HCL 1 MG/ML 2ML VIAL ONE (12:44)
[2023-05-13] MEDS ORDERED: ONDANSETRON 4MG INJ ONE ×2 (13:47→14:08)
[2023-05-13] MEDS ORDERED: 0.9%NACL 10ML VIAL ONE (13:49)
[2023-05-13] MEDS ORDERED: SUGAMMADEX SODIUM 200 MG/2 ML VIAL IV ONE (13:49)
[2023-05-13] MEDS ORDERED: MEPERIDINE-PF 25 MG/ML SYG ONE (14:09)
[2023-05-13] MEDS ORDERED: HYDROMORPHONE 1 MG INJ ONE (14:18)
[2023-05-13] MEDS ORDERED: CEFAZOLIN SODIUM 2 GM in 0.9%NACL 50ML 50 ML IV SCH (14:30)
[2023-05-13] MEDS ORDERED: KETOROLAC 30MG VIAL (30MG/ML) IVP PRN ×2 (14:30)
[2023-05-13] MEDS ORDERED: MORPHINE 4 MG SYG IV PRN (14:30)
[2023-05-13] MEDS ORDERED: MORPHINE 2 MG SYG IV PRN (14:30)
[2023-05-13] MEDS: CEFAZOLIN SODIUM 2 GM VIAL IVPB SCH ×2 (14:30→22:11)
[2023-05-13] MEDS ORDERED: PHARMACY COMMUNICATION MISC SCH (14:30)
[2023-05-13] MEDS: HYDROMORPHONE 1 MG INJ IVP PRN ×3 (16:44→21:59)
[2023-05-13] MEDS ORDERED: KETOROLAC 30MG VIAL (30MG/ML) IVP SCH (20:30)
[2023-05-13] MEDS: LACTATED RINGERS 1000ML 1,000 ML IV SCH (20:45)
[2023-05-14] VITALS (8 sets, daily range): BP systolic 100–137; BP diastolic 66–81; PULSE 57–111; RESP 18–20; O2SAT 92
[2023-05-14] MEDS: HYDROMORPHONE 1 MG INJ IVP PRN ×7 (00:29→21:57)
[2023-05-14] MEDS: LACTATED RINGERS 1000ML 1,000 ML IV SCH ×2 (03:35→14:29)
[2023-05-14 05:47] LABS: BASOPHILS # (AUTO) 0.02 K/uL (0.00-0.20); BASOPHILS % (AUTO) 0.2 % (0.0-5.0); EOSINOPHILS # (AUTO) 0.08 K/uL (0.00-0.70); EOSINOPHILS % (AUTO) 0.7 % (0.0-8.0); HEMATOCRIT 36.8 % (42-54); IMMATURE GRANULOCYTE ABSOLUTE 0.04 K/uL (0-1); LYMPHOCYTES # (AUTO) 3.5 K/uL (1.0-4.8); LYMPHOCYTES % (AUTO) 30.8 % (21.0-51.0); MEAN CORPUSCULAR HGB CONC 34.5 g/dL (32.0-36.0); MEAN CORPUSCULAR VOLUME 89.8 fL (79-99); MONOCYTES # (AUTO) 0.8 K/uL (0.1-1.0); MONOCYTES % (AUTO) 6.9 % (3.0-13.0); NEUTROPHILS # (AUTO) 6.9 K/uL (1.8-7.7); PLATELET COUNT (AUTO) 285 K/uL (130-400); RED CELL DISTRIBUTION WIDTH 11.9 % (11.0-15.5); WHITE BLOOD COUNT (AUTO) 11.2 K/uL (4.8-10.8)
[2023-05-14] MEDS: CEFAZOLIN SODIUM 2 GM VIAL IVPB SCH ×3 (06:01→21:54)
[2023-05-14 06:02] LABS: POTASSIUM 3.2 mmol/L (3.5-5.1)
[2023-05-14] MEDS ORDERED: POTASSIUM CHLORIDE 20MEQ/100ML 100 ML IV PRN (06:30)
[2023-05-14] MEDS: KCL 20 MEQ ERTAB PO PRN ×3 (06:43→15:11)
[2023-05-14] MEDS ORDERED: SIMETHICONE 80 MG TAB.CHEW PO PRN (20:00)
[2023-05-14] MEDS: ONDANSETRON 4MG INJ IVP PRN (20:31)
[2023-05-14] MEDS: HYDROCODONE/ACETAMINOPHEN 10/325 MG TAB PO PRN (20:32)
[2023-05-14] MEDS ORDERED: HYDROCODONE/ACETAMINOPHEN 10/325 MG TAB ONE (20:32)
[2023-05-14] MEDS ORDERED: SIMETHICONE 80 MG TAB.CHEW ONE (21:00)
[2023-05-15] VITALS (7 sets, daily range): BP systolic 114–140; BP diastolic 73–87; PULSE 76–106; RESP 18–20; O2SAT 100
[2023-05-15] MEDS ORDERED: LORAZEPAM 2 MG/ML 1 ML VIAL IVP ONE (01:00)
[2023-05-15] MEDS: ONDANSETRON 4MG INJ IVP PRN (04:03)
[2023-05-15] MEDS: HYDROMORPHONE 1 MG INJ IVP PRN ×3 (04:05→09:17)
[2023-05-15] MEDS: CEFAZOLIN SODIUM 2 GM VIAL IVPB SCH ×3 (05:54→22:39)
[2023-05-15] MEDS: LACTATED RINGERS 1000ML 1,000 ML IV SCH ×2 (05:59→19:50)
[2023-05-15] MEDS: METOCLOPRAMIDE 10 MG/2 ML VIAL IVP SCH ×4 (06:26→23:20)
[2023-05-15] MEDS ORDERED: ALPR0.25 PO (11:51)
[2023-05-15] MEDS: ALPRAZOLAM 0.25 MG TABLET PO SCH ×2 (12:26→22:35)
[2023-05-15] MEDS: KETOROLAC 30MG VIAL (30MG/ML) IVP PRN ×2 (12:26→22:35)
[2023-05-15 16:35] LABS: MEAN CORPUSCULAR HEMOGLOBIN 30.8 pg (27.0-33.0); MEAN CORPUSCULAR HGB CONC 34.2 g/dL (32.0-36.0); MEAN CORPUSCULAR VOLUME 89.9 fL (79-99); PLATELET COUNT (AUTO) 317 K/uL (130-400); RED BLOOD CELL COUNT(AUTO) 3.67 MIL/uL (4.50-6.20); RED CELL DISTRIBUTION WIDTH 11.9 % (11.0-15.5); WHITE BLOOD COUNT (AUTO) 15.6 K/uL (4.8-10.8)
[2023-05-15 16:46] LABS: BASOPHILS # (AUTO) 0.03 K/uL (0.00-0.20); BASOPHILS % (AUTO) 0.2 % (0.0-5.0); IMMATURE GRANULOCYTE ABSOLUTE 0.06 K/uL (0-1); LYMPHOCYTES # (AUTO) 3.7 K/uL (1.0-4.8); LYMPHOCYTES % (AUTO) 24.3 % (21.0-51.0); MONOCYTES # (AUTO) 0.9 K/uL (0.1-1.0); MONOCYTES % (AUTO) 6.1 % (3.0-13.0); NEUTROPHILS # (AUTO) 10.6 K/uL (1.8-7.7)
[2023-05-15] MEDS: HYDROCODONE/ACETAMINOPHEN 10/325 MG TAB PO PRN (17:56)
[2023-05-15] MEDS: SIMETHICONE 80 MG TAB.CHEW PO PRN ×2 (17:57→22:35)
[2023-05-15] MEDS ORDERED: ALPRAZOLAM 0.25 MG TABLET PO SCH (21:00)
[2023-05-15] MEDS: CALCIUM CARB 500MG CHEW TAB PO PRN (22:38)
[2023-05-16] MEDS: HYDROCODONE/ACETAMINOPHEN 10/325 MG TAB PO PRN ×3 (02:29→19:53)
[2023-05-16 03:42] LABS: BASOPHILS # (AUTO) 0.03 K/uL (0.00-0.20); BASOPHILS % (AUTO) 0.3 % (0.0-5.0); EOSINOPHILS # (AUTO) 0.09 K/uL (0.00-0.70); EOSINOPHILS % (AUTO) 0.9 % (0.0-8.0); HEMATOCRIT 29.6 % (42-54); IMMATURE GRANULOCYTE ABSOLUTE 0.03 K/uL (0-1); LYMPHOCYTES # (AUTO) 3.1 K/uL (1.0-4.8); LYMPHOCYTES % (AUTO) 29.5 % (21.0-51.0); MEAN CORPUSCULAR HEMOGLOBIN 30.7 pg (27.0-33.0); MEAN CORPUSCULAR HGB CONC 33.4 g/dL (32.0-36.0); MEAN CORPUSCULAR VOLUME 91.9 fL (79-99); MONOCYTES # (AUTO) 0.5 K/uL (0.1-1.0); MONOCYTES % (AUTO) 5.2 % (3.0-13.0); NEUTROPHILS # (AUTO) 6.6 K/uL (1.8-7.7); NEUTROPHILS % (AUTO) 63.8 % (40.0-77.0); PLATELET COUNT (AUTO) 259 K/uL (130-400); RED BLOOD CELL COUNT(AUTO) 3.22 MIL/uL (4.50-6.20); WHITE BLOOD COUNT (AUTO) 10.4 K/uL (4.8-10.8)
[2023-05-16 03:47] VITALS: BP 116/72; PULSE 76; RESP 18
[2023-05-16 03:56] LABS: ALBUMIN 2.9 g/dL (3.5-5.0); BILIRUBIN,TOTAL 0.7 mg/dL (0.2-1.0); CREATININE 1.1 mg/dL (0.5-1.5); POTASSIUM 3.4 mmol/L (3.5-5.1); TOTAL PROTEIN, SERUM 6.2 g/dL (6.0-8.3)
[2023-05-16] MEDS: CEFAZOLIN SODIUM 2 GM VIAL IVPB SCH ×3 (05:34→21:35)
[2023-05-16] MEDS: METOCLOPRAMIDE 10 MG/2 ML VIAL IVP SCH ×4 (05:34→23:40)
[2023-05-16] MEDS: KETOROLAC 30MG VIAL (30MG/ML) IVP PRN ×3 (05:48→23:40)
[2023-05-16] MEDS: KCL 20 MEQ ERTAB PO PRN (06:18)
[2023-05-16 07:48] VITALS: BP 97/63; PULSE 66; RESP 20
[2023-05-16 08:00] VITALS: O2SAT 100
[2023-05-16] MEDS: POTASSIUM CHLORIDE 10% ELIXIR 20 MEQ/15 ML UDCUP PO PRN ×2 (08:38→12:05)
[2023-05-16] MEDS: PANTOPRAZOLE 40 MG/VIAL IVP SCH (08:38)
[2023-05-16] MEDS: ALPRAZOLAM 0.25 MG TABLET PO SCH ×2 (08:38→19:53)
[2023-05-16] MEDS: LACTATED RINGERS 1000ML 1,000 ML IV SCH ×2 (08:39→22:50)
[2023-05-16 12:46] VITALS: BP 122/75; PULSE 71; RESP 16
[2023-05-16] MEDS: CALCIUM CARB 500MG CHEW TAB PO PRN (14:08)
[2023-05-16 16:00] VITALS: BP 113/70; PULSE 62; RESP 17
[2023-05-16 20:41] VITALS: BP 114/74; PULSE 72; RESP 18
[2023-05-17 00:15] VITALS: BP 107/65; PULSE 63; RESP 18
[2023-05-17] MEDS: HYDROCODONE/ACETAMINOPHEN 10/325 MG TAB PO PRN ×3 (03:12→20:43)
[2023-05-17 04:15] VITALS: BP 93/65; PULSE 64; RESP 18
[2023-05-17] MEDS: METOCLOPRAMIDE 10 MG/2 ML VIAL IVP SCH ×4 (05:29→23:50)
[2023-05-17] MEDS: CEFAZOLIN SODIUM 2 GM VIAL IVPB SCH ×3 (05:29→21:37)
[2023-05-17 08:15] LABS: BASOPHILS # (AUTO) 0.02 K/uL (0.00-0.20); BASOPHILS % (AUTO) 0.2 % (0.0-5.0); EOSINOPHILS # (AUTO) 0.39 K/uL (0.00-0.70); EOSINOPHILS % (AUTO) 4.5 % (0.0-8.0); HEMATOCRIT 29.4 % (42-54); IMMATURE GRANULOCYTE ABSOLUTE 0.02 K/uL (0-1); LYMPHOCYTES # (AUTO) 3.5 K/uL (1.0-4.8); LYMPHOCYTES % (AUTO) 40.2 % (21.0-51.0); MEAN CORPUSCULAR HEMOGLOBIN 30.8 pg (27.0-33.0); MEAN CORPUSCULAR VOLUME 93.3 fL (79-99); MONOCYTES # (AUTO) 0.5 K/uL (0.1-1.0); MONOCYTES % (AUTO) 5.2 % (3.0-13.0); NEUTROPHILS # (AUTO) 4.3 K/uL (1.8-7.7); NEUTROPHILS % (AUTO) 49.7 % (40.0-77.0); PLATELET COUNT (AUTO) 301 K/uL (130-400); RED BLOOD CELL COUNT(AUTO) 3.15 MIL/uL (4.50-6.20); WHITE BLOOD COUNT (AUTO) 8.7 K/uL (4.8-10.8)
[2023-05-17 08:21] VITALS: BP 112/74; PULSE 76; RESP 17
[2023-05-17 08:30] LABS: ALBUMIN 2.8 g/dL (3.5-5.0); BILIRUBIN,TOTAL 0.4 mg/dL (0.2-1.0); CREATININE 0.8 mg/dL (0.5-1.5); POTASSIUM 3.8 mmol/L (3.5-5.1); TOTAL PROTEIN, SERUM 6.1 g/dL (6.0-8.3)
[2023-05-17] MEDS: PANTOPRAZOLE 40 MG/VIAL IVP SCH (08:41)
[2023-05-17] MEDS: ALPRAZOLAM 0.25 MG TABLET PO SCH ×2 (08:41→20:43)
[2023-05-17] MEDS: KETOROLAC 30MG VIAL (30MG/ML) IVP PRN ×2 (08:42→18:16)
[2023-05-17 12:00] VITALS: BP 101/58; PULSE 67; RESP 17
[2023-05-17] MEDS: LACTATED RINGERS 1000ML 1,000 ML IV SCH (13:17)
[2023-05-17] MEDS: SIMETHICONE 80 MG TAB.CHEW PO PRN (13:28)
[2023-05-17 16:00] VITALS: BP 139/82; PULSE 61; RESP 18
[2023-05-17] MEDS ORDERED: DOCUSATE SODIUM 100 MG CAP PO ONE (18:02)
[2023-05-17] MEDS: DOCUSATE SODIUM 100 MG CAP PO SCH (18:16)
[2023-05-17 20:00] VITALS: BP 143/84; PULSE 66; RESP 19
[2023-05-18] VITALS: BP 122/74; PULSE 75; RESP 20
[2023-05-18] MEDS: LACTATED RINGERS 1000ML 1,000 ML IV SCH ×2 (01:01→14:30)
[2023-05-18 04:00] VITALS: BP 110/65; PULSE 67; RESP 19
[2023-05-18] MEDS: METOCLOPRAMIDE 10 MG/2 ML VIAL IVP SCH ×3 (05:02→23:43)
[2023-05-18] MEDS: CEFAZOLIN SODIUM 2 GM VIAL IVPB SCH ×3 (05:02→22:28)
[2023-05-18 07:00] VITALS: BP 112/77; PULSE 71; RESP 20
[2023-05-18] MEDS: DOCUSATE SODIUM 100 MG CAP PO SCH ×2 (08:53→20:55)
[2023-05-18] MEDS: ALPRAZOLAM 0.25 MG TABLET PO SCH ×2 (08:53→20:55)
[2023-05-18] MEDS: PANTOPRAZOLE 40 MG/VIAL IVP SCH (08:53)
[2023-05-18 11:27] VITALS: BP 136/86; PULSE 77; RESP 20
[2023-05-18] MEDS ORDERED: BISACODYL 10 MG SUPP.RECT RC ONE (14:30)
[2023-05-18 15:00] VITALS: BP 117/69; PULSE 74; RESP 20
[2023-05-18] MEDS ORDERED: MAGNESIUM HYDROXIDE 30 ML/UDCUP PO ONE (17:30)
[2023-05-18] MEDS: HYDROCODONE/ACETAMINOPHEN 10/325 MG TAB PO PRN (17:37)
[2023-05-18 20:00] VITALS: BP_SYST 125; BP_SYST 139; BP_DIAS 59; BP_DIAS 76; PULSE 69; PULSE 72; RESP 18
[2023-05-18] MEDS: SIMETHICONE 80 MG TAB.CHEW PO PRN (22:28)
[2023-05-18] MEDS: CALCIUM CARB 500MG CHEW TAB PO PRN (22:28)
[2023-05-19] VITALS: BP 121/69; PULSE 66; RESP 19
[2023-05-19] MEDS: HYDROCODONE/ACETAMINOPHEN 10/325 MG TAB PO PRN (01:19)
[2023-05-20 00:35] LABS: ALBUMIN 3.1 g/dL (3.5-5.0); BILIRUBIN,TOTAL 0.5 mg/dL (0.2-1.0); CREATININE 0.9 mg/dL (0.5-1.5); POTASSIUM 3.7 mmol/L (3.5-5.1); TOTAL PROTEIN, SERUM 6.6 g/dL (6.0-8.3)
[2023-05-21 08:55] LABS: HEMATOCRIT 27.8 % (42-54); MEAN CORPUSCULAR VOLUME 90.8 fL (79-99); RED BLOOD CELL COUNT(AUTO) 3.06 MIL/uL (4.50-6.20); WHITE BLOOD COUNT (AUTO) 9.1 K/uL (4.8-10.8)
[2023-05-21 08:56] LABS: MEAN CORPUSCULAR HEMOGLOBIN 31.4 pg (27.0-33.0); MEAN CORPUSCULAR HGB CONC 34.5 g/dL (32.0-36.0); RED CELL DISTRIBUTION WIDTH 12.2 % (11.0-15.5)
== END 2023-05-19 10:00 | disposition home or self-care (01) | DRG 230 ==
LOC: DAHIP 05-13 08:14 → 4BH 05-13 15:30
PROVIDERS: ADMIT Surgery; ATTEND Surgery
PROC: 0DBB0ZZ Excision of Ileum, Open Approach (ICD-10-PCS; principal; 2023-05-13 12:45)
DX: K94.19 Other complications of enterostomy (principal); Z20.822 Contact with and (suspected) exposure to COVID-19; Y83.8 Other surgical procedures as the cause of abnormal reaction of the patient, or of later complication, without mention of misadventure at the time of the procedure; Y82.8 Other medical devices associated with adverse incidents
CPT/HCPCS: 36415; 74018; 80048; 80053; 84132; 85025; 85027; 85610; 85730; 87426; A4344; C9113; G0378; J0330; J0690; J1170; J1885; J2001; J2060; J2175; J2250; J2270; J2405; J2704; J2765; J2795; J3010; J3480; J3490; J7120; A4215; A4221; A4222; A4223; A4452; A4600; A6260

== ENCOUNTER 2023-06-27 14:39 | Inpatient (IN) | payer MEDICAID, OTHER ==
[~2023-06-27] VITALS: Ht 177.8 cm; Wt 102.9 kg
[~2023-06-27 14:39] MED LIST changes: -ACET-2079 PO; +ALPR0.25 PO; -CEFU500T67 PO; -DOCU-116 PO; -MERO1VIA23 IV; +PARO10TA71 PO; +TRAM100T40 PO
[2023-06-27] MEDS ORDERED: 0.9%NACL 1000ML 1,000 ML IV ONE (15:30)
[2023-06-27] MEDS ORDERED: METOCLOPRAMIDE 10 MG/2 ML VIAL IVP ONE (15:30)
[2023-06-27] MEDS ORDERED: FAMOTIDINE 20MG VIAL IV ONE (15:30)
[2023-06-27] MEDS ORDERED: MORPHINE 4 MG SYG IVP ONE ×2 (15:30→17:00)
[2023-06-27 16:03] LABS: HEMATOCRIT 40.1 % (42-54); MEAN CORPUSCULAR HEMOGLOBIN 30.5 pg (27.0-33.0); MEAN CORPUSCULAR HGB CONC 32.7 g/dL (32.0-36.0); MEAN CORPUSCULAR VOLUME 93.3 fL (79-99); RED BLOOD CELL COUNT(AUTO) 4.3 MIL/uL (4.50-6.20); RED CELL DISTRIBUTION WIDTH 13.4 % (11.0-15.5); WHITE BLOOD COUNT (AUTO) 20.3 K/uL (4.8-10.8)
[2023-06-27 16:15] LABS: APPEARANCE,URINE TURBID (CLEAR); BILIRUBIN,URINE NEGATIVE (NEGATIVE); COLOR,URINE LIGHT-YELLOW (YELLOW); GLUCOSE, URINE (UA) NEGATIVE (NEGATIVE); KETONES,URINE NEGATIVE (NEGATIVE); LEUKOCYTE ESTERASE ,URINE NEGATIVE Leu/uL (NEGATIVE); NITRATE,URINE NEGATIVE (NEGATIVE); OCCULT BLOOD,URINE SMALL (NEGATIVE); PH,URINE 5.5 (5.0-8.0); PROTEIN,URINE 20 mg/dL (NEGATIVE); UROBILINOGEN,URINE 0.2 mg/dL (0.2-1.0)
[2023-06-27 16:16] LABS: ADD UA MICROSCOPIC YES
[2023-06-27 16:21] LABS: AMPHET/METH SCREEN,URINE NEGATIVE (NEGATIVE); BARBITURATE SCREEN, URINE NEGATIVE (NEGATIVE); BENZODIAZEPINES SCREEN,URINE NEGATIVE (NEGATIVE); CANNABINOID SCREEN,URINE NEGATIVE (NEGATIVE); COCAINE SCREEN,URINE POSITIVE (NEGATIVE); OPIATE SCREEN,URINE NEGATIVE (NEGATIVE); PHENCYCLIDINE SCREEN,URINE NEGATIVE (NEGATIVE)
[2023-06-27 16:35] LABS: CREATININE 1.2 mg/dL (0.5-1.5); POTASSIUM 3.4 mmol/L (3.5-5.1)
[2023-06-27 16:46] LABS: BACTERIA,URINE RARE /HPF (None Seen); RBC,URINE 0-1 /HPF (0-1); SQUAMOUS EPITHELIAL CELL,UR RARE /HPF (0-2)
[2023-06-27] MEDS ORDERED: IOHEXOL 350 MG/ML 100ML INFUS..BTL IV ONE (16:54)
[2023-06-27 16:57] LABS: ALBUMIN 3.8 g/dL (3.5-5.0); BILIRUBIN,TOTAL 0.5 mg/dL (0.2-1.0); TOTAL PROTEIN, SERUM 7.1 g/dL (6.0-8.3)
[2023-06-27] MEDS ORDERED: HYDROMORPHONE 2 MG VIAL (2MG/ML) IVP ONE (18:30)
[2023-06-27] MEDS ORDERED: LORAZEPAM 2 MG/ML 1 ML VIAL IVP ONE (18:30)
[2023-06-27] MEDS ORDERED: LACTATED RINGERS 1000ML 1,000 ML IV ONE (18:30)
[2023-06-27] MEDS ORDERED: 0.9%NACL 50ML IV SCH (19:00)
[2023-06-27] MEDS: LACTATED RINGERS 1000ML 1,000 ML IV SCH (20:24)
[2023-06-27] MEDS: ZOSYN 3.375GM +NS 50ML IVPB SCH (20:24)
[2023-06-27] MEDS ORDERED: ACETAMINOPHEN 325 MG TAB ONE (20:47)
[2023-06-27] MEDS: ACETAMINOPHEN 325 MG TAB PO PRN (21:01)
[2023-06-27] MEDS ORDERED: KETAMINE 50MG/ML SYRINGE 50 MG/ML DISP.SYRIN ONE (22:19)
[2023-06-27] MEDS ORDERED: PROPOFOL 10 MG/ML 20ML VIAL IV ONE (22:20)
[2023-06-27] MEDS ORDERED: LIDOCAINE PF 100MG/5ML (2%) SYRINGE 5ML ONE (22:20)
[2023-06-27] MEDS ORDERED: MIDAZOLAM HCL 1 MG/ML 2ML VIAL ONE (22:20)
[2023-06-27] MEDS ORDERED: ROCURONIUM 10MG/1ML SYR 10 MG/ML ML ONE ×2 (22:21→22:53)
[2023-06-27] MEDS ORDERED: FENTANYL CITRATE PF 50 MCG/1 ML 2ML VIAL ONE (22:21)
[2023-06-27] MEDS ORDERED: CEFAZOLIN SODIUM 1 GM VIAL ONE (22:54)
[2023-06-27] MEDS ORDERED: ROPIVACAINE 0.5% 5MG/ML 30ML IJ ONE (23:46)
[2023-06-27] MEDS ORDERED: SUGAMMADEX SODIUM 200 MG/2 ML VIAL IV ONE (23:48)
[2023-06-28] VITALS (49 sets, daily range): BP systolic 103–148; BP diastolic 62–92; PULSE 86–116; RESP 13–46; O2SAT 92–98
[2023-06-28] MEDS ORDERED: ONDANSETRON 4MG INJ ONE
[2023-06-28] MEDS ORDERED: FENTANYL CITRATE PF 50 MCG/1 ML 2ML VIAL ONE ×2 (00:03→00:08)
[2023-06-28] MEDS: METRONIDAZOLE 500MG/100ML BAG 100 ML IVPB SCH ×4 (01:44→21:25)
[2023-06-28] MEDS: LACTATED RINGERS 1000ML 1,000 ML IV SCH ×4 (02:04→20:55)
[2023-06-28] MEDS: HYDROMORPHONE 1 MG INJ IVP PRN ×7 (03:19→23:24)
[2023-06-28] MEDS: ZOSYN 3.375GM +NS 50ML IVPB SCH ×3 (03:21→20:36)
[2023-06-28] MEDS: KETOROLAC 15MG/ML VIAL (15MG/ML) IV PRN ×2 (14:36→22:12)
[2023-06-28] MEDS: POTASSIUM CHLORIDE 10MEQ/100ML 100 ML IV PRN (17:39)
[2023-06-28] MEDS: ACETAMINOPHEN 325 MG TAB PO PRN (21:41)
[2023-06-29] VITALS (9 sets, daily range): BP systolic 112–140; BP diastolic 53–75; PULSE 84–106; RESP 18–20; O2SAT 92–96
[2023-06-29] MEDS: HYDROMORPHONE 1 MG INJ IVP PRN ×11 (02:11→22:17)
[2023-06-29 04:19] LABS: BASOPHILS # (AUTO) 0.02 K/uL (0.00-0.20); BASOPHILS % (AUTO) 0.2 % (0.0-5.0); EOSINOPHILS # (AUTO) 0.02 K/uL (0.00-0.70); EOSINOPHILS % (AUTO) 0.2 % (0.0-8.0); HEMATOCRIT 36.3 % (42-54); IMMATURE GRANULOCYTE ABSOLUTE 0.07 K/uL (0-1); LYMPHOCYTES # (AUTO) 1.5 K/uL (1.0-4.8); LYMPHOCYTES % (AUTO) 11.5 % (21.0-51.0); MEAN CORPUSCULAR HEMOGLOBIN 30.4 pg (27.0-33.0); MEAN CORPUSCULAR HGB CONC 31.4 g/dL (32.0-36.0); MEAN CORPUSCULAR VOLUME 96.8 fL (79-99); MONOCYTES # (AUTO) 0.3 K/uL (0.1-1.0); MONOCYTES % (AUTO) 2.5 % (3.0-13.0); NEUTROPHILS # (AUTO) 10.8 K/uL (1.8-7.7); NEUTROPHILS % (AUTO) 85.1 % (40.0-77.0); PLATELET COUNT (AUTO) 294 K/uL (130-400); RED BLOOD CELL COUNT(AUTO) 3.75 MIL/uL (4.50-6.20); RED CELL DISTRIBUTION WIDTH 13.6 % (11.0-15.5); WHITE BLOOD COUNT (AUTO) 12.7 K/uL (4.8-10.8)
[2023-06-29] MEDS: ZOSYN 3.375GM +NS 50ML IVPB SCH ×3 (04:19→19:41)
[2023-06-29] MEDS: KETOROLAC 15MG/ML VIAL (15MG/ML) IV PRN ×2 (04:19→21:40)
[2023-06-29 04:34] LABS: ALBUMIN 2.5 g/dL (3.5-5.0); BILIRUBIN,TOTAL 0.9 mg/dL (0.2-1.0); CREATININE 1.2 mg/dL (0.5-1.5); POTASSIUM 3.3 mmol/L (3.5-5.1)
[2023-06-29] MEDS: LACTATED RINGERS 1000ML 1,000 ML IV SCH ×3 (04:41→21:22)
[2023-06-29] MEDS: METRONIDAZOLE 500MG/100ML BAG 100 ML IVPB SCH ×3 (05:00→21:21)
[2023-06-29] MEDS: POTASSIUM CHLORIDE 10MEQ/100ML 100 ML IV PRN (06:00)
[2023-06-29] MEDS ORDERED: MAGNESIUM 2GM PREMIX 50ML 50 ML IV PRN (09:00)
[2023-06-30] VITALS (8 sets, daily range): BP systolic 128–157; BP diastolic 73–84; PULSE 82–97; RESP 18; O2SAT 96–97
[2023-06-30] MEDS: LACTATED RINGERS 1000ML 1,000 ML IV SCH ×3 (00:20→21:17)
[2023-06-30] MEDS: HYDROMORPHONE 1 MG INJ IVP PRN ×8 (00:49→22:37)
[2023-06-30 03:43] LABS: BASOPHILS # (AUTO) 0.02 K/uL (0.00-0.20); BASOPHILS % (AUTO) 0.2 % (0.0-5.0); EOSINOPHILS # (AUTO) 0.04 K/uL (0.00-0.70); EOSINOPHILS % (AUTO) 0.3 % (0.0-8.0); HEMATOCRIT 33.3 % (42-54); IMMATURE GRANULOCYTE ABSOLUTE 0.11 K/uL (0-1); LYMPHOCYTES # (AUTO) 1.4 K/uL (1.0-4.8); LYMPHOCYTES % (AUTO) 11.3 % (21.0-51.0); MEAN CORPUSCULAR HEMOGLOBIN 30.7 pg (27.0-33.0); MEAN CORPUSCULAR HGB CONC 31.8 g/dL (32.0-36.0); MEAN CORPUSCULAR VOLUME 96.5 fL (79-99); MONOCYTES # (AUTO) 0.5 K/uL (0.1-1.0); NEUTROPHILS # (AUTO) 10.6 K/uL (1.8-7.7); NEUTROPHILS % (AUTO) 83.3 % (40.0-77.0); PLATELET COUNT (AUTO) 307 K/uL (130-400); RED BLOOD CELL COUNT(AUTO) 3.45 MIL/uL (4.50-6.20); RED CELL DISTRIBUTION WIDTH 13.4 % (11.0-15.5); WHITE BLOOD COUNT (AUTO) 12.7 K/uL (4.8-10.8)
[2023-06-30] MEDS: ZOSYN 3.375GM +NS 50ML IVPB SCH ×4 (03:52→22:36)
[2023-06-30 04:00] LABS: ALBUMIN 2.2 g/dL (3.5-5.0); BILIRUBIN,TOTAL 0.7 mg/dL (0.2-1.0); CREATININE 0.9 mg/dL (0.5-1.5); MAGNESIUM 2.2 mg/dL (1.80-2.40); POTASSIUM 3.2 mmol/L (3.5-5.1); TOTAL PROTEIN, SERUM 6.2 g/dL (6.0-8.3)
[2023-06-30] MEDS: POTASSIUM CHLORIDE 10MEQ/100ML 100 ML IV PRN (05:06)
[2023-06-30] MEDS: METRONIDAZOLE 500MG/100ML BAG 100 ML IVPB SCH ×4 (05:06→22:37)
[2023-06-30] MEDS ORDERED: SIMETHICONE 80 MG TAB.CHEW PO SCH (09:00)
[2023-06-30] MEDS: KETOROLAC 15MG/ML VIAL (15MG/ML) IV PRN (10:06)
[2023-06-30] MEDS: ONDANSETRON 4MG INJ IVP PRN ×3 (12:46→22:37)
[2023-06-30] MEDS: ACETAMINOPHEN WITH CODEINE 1 TAB TAB PO PRN (15:48)
[2023-07-01] VITALS (9 sets, daily range): BP systolic 120–153; BP diastolic 70–91; PULSE 75–93; RESP 17–18; O2SAT 97–100
[2023-07-01] MEDS: ACETAMINOPHEN WITH CODEINE 1 TAB TAB PO PRN (01:11)
[2023-07-01] MEDS: HYDROMORPHONE 1 MG INJ IVP PRN ×4 (02:36→20:19)
[2023-07-01 04:13] LABS: HEMATOCRIT 30.8 % (42-54); MEAN CORPUSCULAR HEMOGLOBIN 30.4 pg (27.0-33.0); MEAN CORPUSCULAR HGB CONC 31.8 g/dL (32.0-36.0); MEAN CORPUSCULAR VOLUME 95.7 fL (79-99); PLATELET COUNT (AUTO) 302 K/uL (130-400); RED BLOOD CELL COUNT(AUTO) 3.22 MIL/uL (4.50-6.20); RED CELL DISTRIBUTION WIDTH 13.1 % (11.0-15.5); WHITE BLOOD COUNT (AUTO) 12.3 K/uL (4.8-10.8)
[2023-07-01] MEDS: KETOROLAC 15MG/ML VIAL (15MG/ML) IV PRN ×3 (04:20→14:55)
[2023-07-01 04:28] LABS: CREATININE 0.8 mg/dL (0.5-1.5)
[2023-07-01] MEDS: METRONIDAZOLE 500MG/100ML BAG 100 ML IVPB SCH ×2 (05:20→14:16)
[2023-07-01] MEDS: LACTATED RINGERS 1000ML 1,000 ML IV SCH ×4 (05:20→22:34)
[2023-07-01] MEDS: ZOSYN 3.375GM +NS 50ML IVPB SCH ×3 (05:21→20:06)
[2023-07-01 05:37] LABS: POTASSIUM 2.7 mmol/L (3.5-5.1)
[2023-07-01] MEDS: POTASSIUM CHLORIDE 20MEQ/100ML 100 ML IV PRN ×3 (06:33→17:10)
[2023-07-01 07:44] LABS: BILIRUBIN,TOTAL 0.6 mg/dL (0.2-1.0); TOTAL PROTEIN, SERUM 5.6 g/dL (6.0-8.3)
[2023-07-01] MEDS ORDERED: DIATR MEGLU/DIATRIZOATE SODIUM 30 ML BOTTLE ONE (08:51)
[2023-07-01 10:27] LABS: BAND NEUTROPHILS % (MANUAL) 18 % (0-2); LYMPHOCYTES % (MANUAL) 8 % (22-44); MAN.DIFF COMMENT-IMPRESSION MANUAL DIFFERENTIAL; MONOCYTES % (MANUAL) 6 % (2-9); PLATELET MORPHOLOGY COMMENT ADEQUATE; SEGMENTED NEUTROPHILS % 68 % (40-70); TOTAL CELLS COUNTED 100
[2023-07-01] MEDS ORDERED: PHARMACY COMMUNICATION MISC PRN (11:30)
[2023-07-01] MEDS ORDERED: LORAZEPAM 2 MG/ML 1 ML VIAL IVP PRN (11:30)
[2023-07-01 12:39] LABS: CREATININE 0.8 mg/dL (0.5-1.5); POTASSIUM 3.4 mmol/L (3.5-5.1)
[2023-07-01] MEDS ORDERED: METOCLOPRAMIDE 10 MG/2 ML VIAL ONE (14:47)
[2023-07-01] MEDS ORDERED: METOCLOPRAMIDE 10 MG/2 ML VIAL IVP SCH (15:00)
[2023-07-01] MEDS: CHLORDIAZEPOXIDE HCL 25 MG CAP PO PRN (21:52)
[2023-07-01] MEDS: METOCLOPRAMIDE 10 MG/2 ML VIAL IVP SCH (22:33)
[2023-07-02] VITALS (9 sets, daily range): BP systolic 114–133; BP diastolic 67–85; PULSE 76–93; RESP 17–20; O2SAT 95–100
[2023-07-02] MEDS: HYDROMORPHONE 1 MG INJ IVP PRN ×6 (02:07→23:58)
[2023-07-02] MEDS: ZOSYN 3.375GM +NS 50ML IVPB SCH ×3 (03:43→20:37)
[2023-07-02] MEDS: LACTATED RINGERS 1000ML 1,000 ML IV SCH ×3 (04:37→22:26)
[2023-07-02] MEDS: ACETAMINOPHEN WITH CODEINE 1 TAB TAB PO PRN ×2 (04:37→13:01)
[2023-07-02] MEDS: METOCLOPRAMIDE 10 MG/2 ML VIAL IVP SCH ×3 (06:05→22:44)
[2023-07-02 06:13] LABS: BASOPHILS # (AUTO) 0.02 K/uL (0.00-0.20); BASOPHILS % (AUTO) 0.2 % (0.0-5.0); EOSINOPHILS # (AUTO) 0.19 K/uL (0.00-0.70); EOSINOPHILS % (AUTO) 1.5 % (0.0-8.0); HEMATOCRIT 30.7 % (42-54); IMMATURE GRANULOCYTE ABSOLUTE 0.07 K/uL (0-1); LYMPHOCYTES # (AUTO) 1.8 K/uL (1.0-4.8); LYMPHOCYTES % (AUTO) 13.9 % (21.0-51.0); MEAN CORPUSCULAR HEMOGLOBIN 30.1 pg (27.0-33.0); MEAN CORPUSCULAR HGB CONC 32.2 g/dL (32.0-36.0); MEAN CORPUSCULAR VOLUME 93.3 fL (79-99); MONOCYTES % (AUTO) 7.9 % (3.0-13.0); NEUTROPHILS # (AUTO) 9.7 K/uL (1.8-7.7); NEUTROPHILS % (AUTO) 75.9 % (40.0-77.0); PLATELET COUNT (AUTO) 373 K/uL (130-400); RED BLOOD CELL COUNT(AUTO) 3.29 MIL/uL (4.50-6.20); RED CELL DISTRIBUTION WIDTH 13.1 % (11.0-15.5); WHITE BLOOD COUNT (AUTO) 12.7 K/uL (4.8-10.8)
[2023-07-02 06:29] LABS: ALBUMIN 1.8 g/dL (3.5-5.0); BILIRUBIN,TOTAL 0.6 mg/dL (0.2-1.0); CREATININE 0.7 mg/dL (0.5-1.5); MAGNESIUM 1.9 mg/dL (1.80-2.40); TOTAL PROTEIN, SERUM 5.6 g/dL (6.0-8.3)
[2023-07-02 06:31] LABS: POTASSIUM 2.9 mmol/L (3.5-5.1)
[2023-07-02 06:33] LABS: INR 1.07 (0.85-1.15); PARTIAL THROMBOPLASTIN TIME 31.9 SEC (26.3-35.5); PROTHROMBIN TIME 12.4 SEC (9.6-11.6)
[2023-07-02] MEDS: POTASSIUM CHLORIDE 20MEQ/100ML 100 ML IV PRN ×2 (06:46→18:46)
[2023-07-02 09:04] LABS: MYOGLOBIN 212 ng/mL (10-92)
[2023-07-02 09:12] LABS: CREATINE KINASE, TOTAL 1928 U/L (21-232)
[2023-07-02] MEDS: THIAMINE HCL 100 MG/ML 2ML VIAL IVP SCH (10:43)
[2023-07-02] MEDS: FOLIC ACID 5 MG/ML VIAL IV SCH (10:43)
[2023-07-02] MEDS: KETOROLAC 15MG/ML VIAL (15MG/ML) IV PRN (18:47)
[2023-07-03] VITALS (12 sets, daily range): BP systolic 109–141; BP diastolic 63–86; PULSE 69–87; RESP 16–20; O2SAT 99–100
[2023-07-03] MEDS: CHLORDIAZEPOXIDE HCL 25 MG CAP PO PRN (00:33)
[2023-07-03] MEDS: KETOROLAC 15MG/ML VIAL (15MG/ML) IV PRN (02:25)
[2023-07-03 04:49] LABS: BASOPHILS # (AUTO) 0.02 K/uL (0.00-0.20); BASOPHILS % (AUTO) 0.2 % (0.0-5.0); EOSINOPHILS # (AUTO) 0.36 K/uL (0.00-0.70); EOSINOPHILS % (AUTO) 3.2 % (0.0-8.0); HEMATOCRIT 29.4 % (42-54); IMMATURE GRANULOCYTE ABSOLUTE 0.08 K/uL (0-1); LYMPHOCYTES # (AUTO) 2.3 K/uL (1.0-4.8); LYMPHOCYTES % (AUTO) 20.6 % (21.0-51.0); MEAN CORPUSCULAR HEMOGLOBIN 30.2 pg (27.0-33.0); MEAN CORPUSCULAR HGB CONC 31.3 g/dL (32.0-36.0); MEAN CORPUSCULAR VOLUME 96.4 fL (79-99); MONOCYTES # (AUTO) 0.9 K/uL (0.1-1.0); MONOCYTES % (AUTO) 8.3 % (3.0-13.0); NEUTROPHILS # (AUTO) 7.5 K/uL (1.8-7.7); PLATELET COUNT (AUTO) 349 K/uL (130-400); RED BLOOD CELL COUNT(AUTO) 3.05 MIL/uL (4.50-6.20); RED CELL DISTRIBUTION WIDTH 13.2 % (11.0-15.5); WHITE BLOOD COUNT (AUTO) 11.1 K/uL (4.8-10.8)
[2023-07-03] MEDS: ZOSYN 3.375GM +NS 50ML IVPB SCH ×3 (05:28→22:32)
[2023-07-03 05:37] LABS: CREATININE 0.8 mg/dL (0.5-1.5)
[2023-07-03 05:55] LABS: POTASSIUM 2.8 mmol/L (3.5-5.1)
[2023-07-03] MEDS: POTASSIUM CHLORIDE 20MEQ/100ML 100 ML IV PRN ×2 (06:06→10:58)
[2023-07-03] MEDS: METOCLOPRAMIDE 10 MG/2 ML VIAL IVP SCH (06:06)
[2023-07-03] MEDS: HYDROMORPHONE 1 MG INJ IVP PRN (06:38)
[2023-07-03] MEDS ORDERED: COMPOUND IV REFRIGERATED 1 EACH IVSOLN MISC PRN (09:00)
[2023-07-03] MEDS: LACTATED RINGERS 1000ML 1,000 ML IV SCH ×3 (10:46→22:50)
[2023-07-03] MEDS: THIAMINE HCL 100 MG/ML 2ML VIAL IVP SCH (10:48)
[2023-07-03] MEDS ORDERED: HYDROCODONE/ACETAMINOPHEN 5/325 MG TAB PO PRN (12:30)
[2023-07-03] MEDS: HYDROCODONE/ACETAMINOPHEN 10/325 MG TAB PO PRN ×2 (12:44→17:55)
[2023-07-03] MEDS: KCL 20 MEQ ERTAB PO SCH ×2 (13:46→22:32)
[2023-07-03] MEDS: SIMETHICONE 80 MG TAB.CHEW PO SCH ×2 (13:47→17:56)
[2023-07-03] MEDS: FOLIC ACID 5 MG/ML VIAL IV SCH (13:48)
[2023-07-03] MEDS: ACETAMINOPHEN WITH CODEINE 1 TAB TAB PO PRN (22:52)
[2023-07-04] VITALS (7 sets, daily range): BP systolic 125–143; BP diastolic 74–85; PULSE 75–85; RESP 19–20; O2SAT 100
[2023-07-04] MEDS ORDERED: ALPRAZOLAM 0.25 MG TABLET ONE (00:15)
[2023-07-04] MEDS: SIMETHICONE 80 MG TAB.CHEW PO SCH ×5 (00:17→23:29)
[2023-07-04] MEDS: HYDROCODONE/ACETAMINOPHEN 10/325 MG TAB PO PRN ×4 (01:49→20:17)
[2023-07-04 05:19] LABS: BASOPHILS # (AUTO) 0.02 K/uL (0.00-0.20); BASOPHILS % (AUTO) 0.2 % (0.0-5.0); EOSINOPHILS # (AUTO) 0.36 K/uL (0.00-0.70); EOSINOPHILS % (AUTO) 3.4 % (0.0-8.0); HEMATOCRIT 29.1 % (42-54); IMMATURE GRANULOCYTE ABSOLUTE 0.09 K/uL (0-1); LYMPHOCYTES # (AUTO) 2.1 K/uL (1.0-4.8); LYMPHOCYTES % (AUTO) 19.8 % (21.0-51.0); MEAN CORPUSCULAR HEMOGLOBIN 29.9 pg (27.0-33.0); MEAN CORPUSCULAR HGB CONC 31.3 g/dL (32.0-36.0); MEAN CORPUSCULAR VOLUME 95.7 fL (79-99); MONOCYTES # (AUTO) 0.8 K/uL (0.1-1.0); MONOCYTES % (AUTO) 7.3 % (3.0-13.0); NEUTROPHILS # (AUTO) 7.3 K/uL (1.8-7.7); NEUTROPHILS % (AUTO) 68.5 % (40.0-77.0); PLATELET COUNT (AUTO) 387 K/uL (130-400); RED BLOOD CELL COUNT(AUTO) 3.04 MIL/uL (4.50-6.20); RED CELL DISTRIBUTION WIDTH 13.1 % (11.0-15.5); WHITE BLOOD COUNT (AUTO) 10.7 K/uL (4.8-10.8)
[2023-07-04] MEDS ORDERED: MORPHINE 2 MG SYG ONE (05:37)
[2023-07-04] MEDS: ZOSYN 3.375GM +NS 50ML IVPB SCH ×3 (05:38→18:45)
[2023-07-04 05:55] LABS: ALBUMIN 1.8 g/dL (3.5-5.0); BILIRUBIN,TOTAL 0.4 mg/dL (0.2-1.0); CREATININE 0.7 mg/dL (0.5-1.5); MAGNESIUM 1.8 mg/dL (1.80-2.40); POTASSIUM 3.3 mmol/L (3.5-5.1); TOTAL PROTEIN, SERUM 5.7 g/dL (6.0-8.3)
[2023-07-04] MEDS ORDERED: MORPHINE 2 MG SYG IVP ONE (06:00)
[2023-07-04] MEDS: POTASSIUM CHLORIDE 10% ELIXIR 20 MEQ/15 ML UDCUP PO PRN ×3 (06:50→20:18)
[2023-07-04] MEDS: FOLIC ACID 5 MG/ML VIAL IV SCH (08:29)
[2023-07-04] MEDS: ALPRAZOLAM 0.25 MG TABLET PO SCH ×2 (08:29→20:16)
[2023-07-04] MEDS: THIAMINE HCL 100 MG/ML 2ML VIAL IVP SCH (08:30)
[2023-07-04] MEDS: ENOXAPARIN SODIUM 40 MG/0.4 ML SYRINGE SQ SCH (08:59)
[2023-07-04] MEDS: LACTATED RINGERS 1000ML 1,000 ML IV SCH (18:48)
[2023-07-04] MEDS: METOCLOPRAMIDE 10 MG TABLET PO SCH (20:17)
[2023-07-04] MEDS: DOCUSATE SODIUM 100 MG CAP PO SCH (20:17)
[2023-07-04] MEDS: GABAPENTIN 100 MG CAPSULE PO SCH (22:00)
[2023-07-05] VITALS (7 sets, daily range): BP systolic 119–144; BP diastolic 69–85; PULSE 71–86; RESP 17–19; O2SAT 100
[2023-07-05] MEDS: HYDROCODONE/ACETAMINOPHEN 10/325 MG TAB PO PRN ×2 (02:11→21:47)
[2023-07-05] MEDS: ZOSYN 3.375GM +NS 50ML IVPB SCH ×3 (03:00→20:01)
[2023-07-05 05:00] LABS: BASOPHILS # (AUTO) 0.03 K/uL (0.00-0.20); BASOPHILS % (AUTO) 0.3 % (0.0-5.0); EOSINOPHILS % (AUTO) 2.5 % (0.0-8.0); HEMATOCRIT 28.7 % (42-54); LYMPHOCYTES # (AUTO) 2.2 K/uL (1.0-4.8); LYMPHOCYTES % (AUTO) 18.8 % (21.0-51.0); MEAN CORPUSCULAR HEMOGLOBIN 29.9 pg (27.0-33.0); MEAN CORPUSCULAR HGB CONC 32.4 g/dL (32.0-36.0); MEAN CORPUSCULAR VOLUME 92.3 fL (79-99); MONOCYTES # (AUTO) 0.8 K/uL (0.1-1.0); NEUTROPHILS # (AUTO) 8.4 K/uL (1.8-7.7); NEUTROPHILS % (AUTO) 70.6 % (40.0-77.0); PLATELET COUNT (AUTO) 445 K/uL (130-400); RED BLOOD CELL COUNT(AUTO) 3.11 MIL/uL (4.50-6.20); RED CELL DISTRIBUTION WIDTH 12.9 % (11.0-15.5); WHITE BLOOD COUNT (AUTO) 11.9 K/uL (4.8-10.8)
[2023-07-05 05:16] LABS: ALBUMIN 1.8 g/dL (3.5-5.0); BILIRUBIN,TOTAL 0.3 mg/dL (0.2-1.0); CREATININE 0.8 mg/dL (0.5-1.5); POTASSIUM 3.5 mmol/L (3.5-5.1); TOTAL PROTEIN, SERUM 5.8 g/dL (6.0-8.3)
[2023-07-05] MEDS: SIMETHICONE 80 MG TAB.CHEW PO SCH ×2 (05:50→12:52)
[2023-07-05] MEDS: KCL 20 MEQ ERTAB PO PRN (05:51)
[2023-07-05] MEDS: LACTATED RINGERS 1000ML 1,000 ML IV SCH ×3 (06:59→21:49)
[2023-07-05] MEDS: METOCLOPRAMIDE 10 MG TABLET PO SCH ×2 (09:16→19:46)
[2023-07-05] MEDS: GABAPENTIN 100 MG CAPSULE PO SCH ×3 (09:17→19:46)
[2023-07-05] MEDS: DOCUSATE SODIUM 100 MG CAP PO SCH ×2 (09:17→19:46)
[2023-07-05] MEDS: POTASSIUM CHLORIDE 10% ELIXIR 20 MEQ/15 ML UDCUP PO PRN (09:18)
[2023-07-05] MEDS: THIAMINE HCL 100 MG/ML 2ML VIAL IVP SCH (09:18)
[2023-07-05] MEDS: ALPRAZOLAM 0.25 MG TABLET PO SCH ×2 (09:19→19:45)
[2023-07-05] MEDS: ENOXAPARIN SODIUM 40 MG/0.4 ML SYRINGE SQ SCH (09:19)
[2023-07-05] MEDS: FOLIC ACID 5 MG/ML VIAL IV SCH (09:24)
[2023-07-05] MEDS ORDERED: HYDROCODONE/ACETAMINOPHEN 5/325 MG TAB PO PRN (12:00)
[2023-07-05] MEDS ORDERED: KETOROLAC 30MG VIAL (30MG/ML) IVP PRN (13:00)
[2023-07-05] MEDS: KETOROLAC 30MG VIAL (30MG/ML) IVP PRN ×2 (13:24→19:53)
[2023-07-05] MEDS ORDERED: DIATR MEGLU/DIATRIZOATE SODIUM 30 ML BOTTLE ONE (15:08)
[2023-07-05] MEDS ORDERED: IOHEXOL-350 75 ML VIAL IV ONE (17:54)
[2023-07-05 20:49] LABS: INR 1.09 (0.85-1.15); PROTHROMBIN TIME 12.6 SEC (9.6-11.6)
[2023-07-06] VITALS: BP_SYST 99
[2023-07-06] MEDS: SIMETHICONE 80 MG TAB.CHEW PO SCH ×4 (00:43→23:21)
[2023-07-06] MEDS: ZOSYN 3.375GM +NS 50ML IVPB SCH ×3 (03:56→21:10)
[2023-07-06 04:00] VITALS: BP 128/89; PULSE 84; RESP 18
[2023-07-06] MEDS: KETOROLAC 30MG VIAL (30MG/ML) IVP PRN ×2 (04:03→13:57)
[2023-07-06 05:03] LABS: HEMATOCRIT 29.2 % (42-54); MEAN CORPUSCULAR HEMOGLOBIN 29.5 pg (27.0-33.0); MEAN CORPUSCULAR HGB CONC 31.2 g/dL (32.0-36.0); MEAN CORPUSCULAR VOLUME 94.8 fL (79-99); RED BLOOD CELL COUNT(AUTO) 3.08 MIL/uL (4.50-6.20); RED CELL DISTRIBUTION WIDTH 12.8 % (11.0-15.5); WHITE BLOOD COUNT (AUTO) 10.2 K/uL (4.8-10.8)
[2023-07-06 05:04] LABS: BASOPHILS # (AUTO) 0.01 K/uL (0.00-0.20); BASOPHILS % (AUTO) 0.1 % (0.0-5.0); IMMATURE GRANULOCYTE ABSOLUTE 0.08 K/uL (0-1); LYMPHOCYTES # (AUTO) 2.1 K/uL (1.0-4.8); LYMPHOCYTES % (AUTO) 20.7 % (21.0-51.0); MONOCYTES # (AUTO) 0.6 K/uL (0.1-1.0); MONOCYTES % (AUTO) 5.5 % (3.0-13.0); NEUTROPHILS # (AUTO) 7.1 K/uL (1.8-7.7); NEUTROPHILS % (AUTO) 69.9 % (40.0-77.0); PLATELET COUNT (AUTO) 450 K/uL (130-400)
[2023-07-06 05:12] LABS: ALBUMIN 1.9 g/dL (3.5-5.0); BILIRUBIN,TOTAL 0.3 mg/dL (0.2-1.0); CREATININE 0.6 mg/dL (0.5-1.5); POTASSIUM 3.8 mmol/L (3.5-5.1)
[2023-07-06 08:00] VITALS: BP 124/73; PULSE 67; RESP 16; O2SAT 100
[2023-07-06] MEDS: FOLIC ACID 5 MG/ML VIAL IV SCH (09:00)
[2023-07-06] MEDS: ALPRAZOLAM 0.25 MG TABLET PO SCH ×2 (09:21→21:10)
[2023-07-06] MEDS: DOCUSATE SODIUM 100 MG CAP PO SCH ×2 (09:21→21:10)
[2023-07-06] MEDS: THIAMINE HCL 100 MG/ML 2ML VIAL IVP SCH (09:21)
[2023-07-06] MEDS: GABAPENTIN 100 MG CAPSULE PO SCH ×3 (09:21→21:10)
[2023-07-06] MEDS: METOCLOPRAMIDE 10 MG TABLET PO SCH ×2 (09:21→21:10)
[2023-07-06] MEDS: ENOXAPARIN SODIUM 40 MG/0.4 ML SYRINGE SQ SCH (09:22)
[2023-07-06] MEDS: HYDROCODONE/ACETAMINOPHEN 10/325 MG TAB PO PRN ×2 (09:28→23:21)
[2023-07-06 12:00] VITALS: BP 125/76; PULSE 78; RESP 18
[2023-07-06 16:00] VITALS: BP 125/72; PULSE 71; RESP 16
[2023-07-06 20:00] VITALS: BP 135/78; PULSE 75; RESP 18
[2023-07-07] VITALS (8 sets, daily range): BP systolic 114–153; BP diastolic 65–88; PULSE 68–90; RESP 17–19; O2SAT 100
[2023-07-07] MEDS: LACTATED RINGERS 1000ML 1,000 ML IV SCH (01:18)
[2023-07-07] MEDS: HYDROCODONE/ACETAMINOPHEN 10/325 MG TAB PO PRN ×4 (03:16→21:47)
[2023-07-07] MEDS: ZOSYN 3.375GM +NS 50ML IVPB SCH ×3 (03:16→21:42)
[2023-07-07 07:07] LABS: HEMATOCRIT 28.3 % (42-54); MEAN CORPUSCULAR HEMOGLOBIN 29.5 pg (27.0-33.0); MEAN CORPUSCULAR HGB CONC 31.4 g/dL (32.0-36.0); MEAN CORPUSCULAR VOLUME 93.7 fL (79-99); RED BLOOD CELL COUNT(AUTO) 3.02 MIL/uL (4.50-6.20); RED CELL DISTRIBUTION WIDTH 12.6 % (11.0-15.5)
[2023-07-07] MEDS: SIMETHICONE 80 MG TAB.CHEW PO SCH ×4 (07:14→23:54)
[2023-07-07] MEDS: KETOROLAC 30MG VIAL (30MG/ML) IVP PRN ×2 (07:14→18:18)
[2023-07-07 07:17] LABS: CREATININE 0.6 mg/dL (0.5-1.5); POTASSIUM 3.8 mmol/L (3.5-5.1)
[2023-07-07 07:19] LABS: INR 1.09 (0.85-1.15); PROTHROMBIN TIME 12.6 SEC (9.6-11.6)
[2023-07-07 07:21] LABS: PARTIAL THROMBOPLASTIN TIME 32.6 SEC (26.3-35.5)
[2023-07-07] MEDS: GABAPENTIN 100 MG CAPSULE PO SCH ×3 (09:00→21:42)
[2023-07-07] MEDS: ALPRAZOLAM 0.25 MG TABLET PO SCH ×2 (09:00→12:36)
[2023-07-07] MEDS: METOCLOPRAMIDE 10 MG TABLET PO SCH ×2 (09:00→12:36)
[2023-07-07] MEDS: DOCUSATE SODIUM 100 MG CAP PO SCH ×2 (09:00→12:36)
[2023-07-07] MEDS: FOLIC ACID 5 MG/ML VIAL IV SCH (09:47)
[2023-07-07] MEDS: THIAMINE HCL 100 MG/ML 2ML VIAL IVP SCH (09:47)
[2023-07-07] MEDS: ENOXAPARIN SODIUM 40 MG/0.4 ML SYRINGE SQ SCH (09:50)
[2023-07-07] MEDS: ONDANSETRON 4MG INJ IVP PRN (14:56)
[2023-07-07] MEDS: 0.9%NACL 10ML VIAL IV SCH (21:42)
[2023-07-07] MEDS ORDERED: ALPRAZOLAM 0.25 MG TABLET PO ONE (22:00)
[2023-07-08] VITALS (16 sets, daily range): BP systolic 122–143; BP diastolic 73–87; PULSE 72–90; RESP 16–19; O2SAT 98–100
[2023-07-08] MEDS: HYDROCODONE/ACETAMINOPHEN 10/325 MG TAB PO PRN ×2 (02:46→15:35)
[2023-07-08] MEDS: ZOSYN 3.375GM +NS 50ML IVPB SCH ×3 (04:54→20:11)
[2023-07-08] MEDS: SIMETHICONE 80 MG TAB.CHEW PO SCH ×3 (04:54→17:27)
[2023-07-08] MEDS: KETOROLAC 30MG VIAL (30MG/ML) IVP PRN (06:55)
[2023-07-08] MEDS: ENOXAPARIN SODIUM 40 MG/0.4 ML SYRINGE SQ SCH (08:34)
[2023-07-08] MEDS: DOCUSATE SODIUM 100 MG CAP PO SCH ×2 (08:37→20:11)
[2023-07-08] MEDS: ALPRAZOLAM 0.25 MG TABLET PO SCH ×2 (08:37→20:10)
[2023-07-08] MEDS: METOCLOPRAMIDE 10 MG TABLET PO SCH ×2 (08:37→20:10)
[2023-07-08] MEDS: GABAPENTIN 100 MG CAPSULE PO SCH ×3 (08:37→20:11)
[2023-07-08 08:52] LABS: HEMATOCRIT 29.7 % (42-54); MEAN CORPUSCULAR HEMOGLOBIN 29.7 pg (27.0-33.0); MEAN CORPUSCULAR HGB CONC 31.6 g/dL (32.0-36.0); MEAN CORPUSCULAR VOLUME 93.7 fL (79-99); RED BLOOD CELL COUNT(AUTO) 3.17 MIL/uL (4.50-6.20); RED CELL DISTRIBUTION WIDTH 12.6 % (11.0-15.5)
[2023-07-08 08:58] LABS: INR 1.09 (0.85-1.15); PROTHROMBIN TIME 12.6 SEC (9.6-11.6)
[2023-07-08 08:59] LABS: PARTIAL THROMBOPLASTIN TIME 33.9 SEC (26.3-35.5)
[2023-07-08 09:08] LABS: BILIRUBIN,TOTAL 0.3 mg/dL (0.2-1.0); CREATININE 0.7 mg/dL (0.5-1.5); MAGNESIUM 1.9 mg/dL (1.80-2.40); PHOSPHORUS 3.7 mg/dL (2.5-4.9); POTASSIUM 3.8 mmol/L (3.5-5.1); TOTAL PROTEIN, SERUM 6.5 g/dL (6.0-8.3)
[2023-07-08] MEDS: POTASSIUM CHLORIDE 20MEQ/100ML 100 ML IV PRN (09:44)
[2023-07-08] MEDS: THIAMINE HCL 100 MG/ML 2ML VIAL IVP SCH (09:45)
[2023-07-08] MEDS: FOLIC ACID 5 MG/ML VIAL IV SCH (09:45)
[2023-07-08] MEDS: 0.9%NACL 10ML VIAL IV SCH ×2 (09:46→20:11)
[2023-07-08] MEDS: HYDROMORPHONE 0.5 MG SYG (0.5MG/0.5ML) IVP PRN ×2 (12:01→17:27)
[2023-07-08] MEDS ORDERED: M.V.I. IV [ADULT] 10 ML in CLINIMIX-E 5%AA /D15%W 2000ML 2,000 ML IV ONE (14:00)
[2023-07-08] MEDS ORDERED: MIDAZOLAM HCL 1 MG/ML 2ML VIAL ONE (14:39)
[2023-07-08] MEDS ORDERED: FENTANYL CITRATE PF 50 MCG/1 ML 2ML VIAL ONE (14:39)
[2023-07-08] MEDS: ACETAMINOPHEN WITH CODEINE 1 TAB TAB PO PRN (20:16)
[2023-07-09] VITALS (10 sets, daily range): BP systolic 109–136; BP diastolic 62–73; PULSE 73–90; RESP 18–20; TEMP 99.3; O2SAT 99
[2023-07-09] MEDS: HYDROMORPHONE 0.5 MG SYG (0.5MG/0.5ML) IVP PRN ×4 (00:11→22:26)
[2023-07-09] MEDS: SIMETHICONE 80 MG TAB.CHEW PO SCH ×4 (00:11→18:12)
[2023-07-09] MEDS: ACETAMINOPHEN 325 MG TAB PO PRN (00:29)
[2023-07-09] MEDS: HYDROCODONE/ACETAMINOPHEN 10/325 MG TAB PO PRN ×4 (02:47→19:27)
[2023-07-09] MEDS: ZOSYN 3.375GM +NS 50ML IVPB SCH ×3 (04:17→20:27)
[2023-07-09 05:02] LABS: BASOPHILS # (AUTO) 0.02 K/uL (0.00-0.20); BASOPHILS % (AUTO) 0.1 % (0.0-5.0); EOSINOPHILS # (AUTO) 0.17 K/uL (0.00-0.70); EOSINOPHILS % (AUTO) 1.2 % (0.0-8.0); HEMATOCRIT 30.1 % (42-54); IMMATURE GRANULOCYTE ABSOLUTE 0.08 K/uL (0-1); LYMPHOCYTES # (AUTO) 2.1 K/uL (1.0-4.8); LYMPHOCYTES % (AUTO) 15.4 % (21.0-51.0); MEAN CORPUSCULAR HGB CONC 32.9 g/dL (32.0-36.0); MEAN CORPUSCULAR VOLUME 91.2 fL (79-99); MONOCYTES # (AUTO) 0.7 K/uL (0.1-1.0); NEUTROPHILS # (AUTO) 10.7 K/uL (1.8-7.7); NEUTROPHILS % (AUTO) 77.7 % (40.0-77.0); PLATELET COUNT (AUTO) 622 K/uL (130-400); RED CELL DISTRIBUTION WIDTH 12.5 % (11.0-15.5); WHITE BLOOD COUNT (AUTO) 13.8 K/uL (4.8-10.8)
[2023-07-09 05:20] LABS: BILIRUBIN,TOTAL 0.2 mg/dL (0.2-1.0); CREATININE 0.7 mg/dL (0.5-1.5); TOTAL PROTEIN, SERUM 6.7 g/dL (6.0-8.3)
[2023-07-09] MEDS: KCL 20 MEQ ERTAB PO PRN (06:22)
[2023-07-09] MEDS: GABAPENTIN 100 MG CAPSULE PO SCH ×3 (08:47→20:31)
[2023-07-09] MEDS: ALPRAZOLAM 0.25 MG TABLET PO SCH ×2 (08:47→20:28)
[2023-07-09] MEDS: THIAMINE HCL 100 MG/ML 2ML VIAL IVP SCH (08:47)
[2023-07-09] MEDS: ENOXAPARIN SODIUM 40 MG/0.4 ML SYRINGE SQ SCH (08:50)
[2023-07-09] MEDS: DOCUSATE SODIUM 100 MG CAP PO SCH ×2 (08:51→20:28)
[2023-07-09] MEDS: METOCLOPRAMIDE 10 MG TABLET PO SCH ×2 (08:51→20:28)
[2023-07-09] MEDS: POTASSIUM CHLORIDE 10% ELIXIR 20 MEQ/15 ML UDCUP PO PRN ×3 (08:54→19:28)
[2023-07-09] MEDS: FOLIC ACID 5 MG/ML VIAL IV SCH (09:27)
[2023-07-09] MEDS: 0.9%NACL 10ML VIAL IV SCH ×2 (19:13→20:27)
[2023-07-09] MEDS: POTASSIUM CHLORIDE 20MEQ/100ML 100 ML IV PRN (20:28)
[2023-07-09] MEDS ORDERED: M.V.I. IV [ADULT] 10 ML in CLINIMIX-E 5%AA /D15%W 2000ML 2,000 ML IV SCH (22:30)
[2023-07-10] VITALS (8 sets, daily range): BP systolic 100–116; BP diastolic 57–72; PULSE 67–81; RESP 18–20; O2SAT 98–100
[2023-07-10] MEDS: SIMETHICONE 80 MG TAB.CHEW PO SCH ×5 (00:16→23:22)
[2023-07-10] MEDS: HYDROCODONE/ACETAMINOPHEN 10/325 MG TAB PO PRN (03:37)
[2023-07-10] MEDS: ZOSYN 3.375GM +NS 50ML IVPB SCH ×3 (03:37→19:49)
[2023-07-10 05:06] LABS: BASOPHILS # (AUTO) 0.02 K/uL (0.00-0.20); BASOPHILS % (AUTO) 0.1 % (0.0-5.0); EOSINOPHILS % (AUTO) 1.4 % (0.0-8.0); HEMATOCRIT 31.3 % (42-54); IMMATURE GRANULOCYTE ABSOLUTE 0.06 K/uL (0-1); LYMPHOCYTES # (AUTO) 2.8 K/uL (1.0-4.8); LYMPHOCYTES % (AUTO) 20.5 % (21.0-51.0); MEAN CORPUSCULAR HEMOGLOBIN 29.6 pg (27.0-33.0); MEAN CORPUSCULAR HGB CONC 31.6 g/dL (32.0-36.0); MEAN CORPUSCULAR VOLUME 93.7 fL (79-99); MONOCYTES # (AUTO) 0.9 K/uL (0.1-1.0); MONOCYTES % (AUTO) 6.4 % (3.0-13.0); NEUTROPHILS # (AUTO) 9.9 K/uL (1.8-7.7); NEUTROPHILS % (AUTO) 71.2 % (40.0-77.0); PLATELET COUNT (AUTO) 642 K/uL (130-400); RED BLOOD CELL COUNT(AUTO) 3.34 MIL/uL (4.50-6.20); RED CELL DISTRIBUTION WIDTH 12.8 % (11.0-15.5); WHITE BLOOD COUNT (AUTO) 13.9 K/uL (4.8-10.8)
[2023-07-10 05:26] LABS: ALBUMIN 2.1 g/dL (3.5-5.0); BILIRUBIN,TOTAL 0.2 mg/dL (0.2-1.0); CREATININE 0.8 mg/dL (0.5-1.5); MAGNESIUM 2.1 mg/dL (1.80-2.40); POTASSIUM 3.7 mmol/L (3.5-5.1); TOTAL PROTEIN, SERUM 6.8 g/dL (6.0-8.3)
[2023-07-10] MEDS: HYDROMORPHONE 0.5 MG SYG (0.5MG/0.5ML) IVP PRN ×4 (06:19→19:50)
[2023-07-10] MEDS: METOCLOPRAMIDE 10 MG TABLET PO SCH ×2 (09:00→19:50)
[2023-07-10] MEDS: GABAPENTIN 100 MG CAPSULE PO SCH ×3 (09:00→20:08)
[2023-07-10] MEDS: ALPRAZOLAM 0.25 MG TABLET PO SCH ×2 (09:00→19:50)
[2023-07-10] MEDS: DOCUSATE SODIUM 100 MG CAP PO SCH ×2 (09:00→19:50)
[2023-07-10] MEDS: THIAMINE HCL 100 MG/ML 2ML VIAL IVP SCH (09:32)
[2023-07-10] MEDS: ENOXAPARIN SODIUM 40 MG/0.4 ML SYRINGE SQ SCH (09:33)
[2023-07-10] MEDS: 0.9%NACL 10ML VIAL IV SCH ×2 (09:33→19:49)
[2023-07-10] MEDS ORDERED: HYDROMORPHONE 0.5 MG SYG (0.5MG/0.5ML) IVP STA (13:21)
[2023-07-10] MEDS: FOLIC ACID 5 MG/ML VIAL IV SCH ×2 (13:30→13:48)
[2023-07-10] MEDS: ONDANSETRON 4MG INJ IVP PRN ×2 (13:48→23:22)
[2023-07-10] MEDS: FLUCONAZOLE 200 MG/NS 100 ML IV SCH (14:04)
[2023-07-10] MEDS: ACETAMINOPHEN WITH CODEINE 1 TAB TAB PO PRN ×2 (16:47→21:31)
[2023-07-11] VITALS (10 sets, daily range): BP systolic 101–118; BP diastolic 62–69; PULSE 74–84; RESP 18–20; O2SAT 98–100
[2023-07-11] MEDS: HYDROMORPHONE 0.5 MG SYG (0.5MG/0.5ML) IVP PRN ×4 (03:31→18:57)
[2023-07-11] MEDS: ZOSYN 3.375GM +NS 50ML IVPB SCH ×2 (03:31→14:46)
[2023-07-11 04:58] LABS: BASOPHILS # (AUTO) 0.04 K/uL (0.00-0.20); BASOPHILS % (AUTO) 0.3 % (0.0-5.0); EOSINOPHILS # (AUTO) 0.28 K/uL (0.00-0.70); EOSINOPHILS % (AUTO) 2.1 % (0.0-8.0); HEMATOCRIT 31.3 % (42-54); IMMATURE GRANULOCYTE ABSOLUTE 0.08 K/uL (0-1); LYMPHOCYTES # (AUTO) 3.5 K/uL (1.0-4.8); LYMPHOCYTES % (AUTO) 25.9 % (21.0-51.0); MEAN CORPUSCULAR HEMOGLOBIN 29.4 pg (27.0-33.0); MEAN CORPUSCULAR VOLUME 94.8 fL (79-99); MONOCYTES # (AUTO) 0.7 K/uL (0.1-1.0); MONOCYTES % (AUTO) 5.3 % (3.0-13.0); NEUTROPHILS # (AUTO) 8.8 K/uL (1.8-7.7); NEUTROPHILS % (AUTO) 65.8 % (40.0-77.0); RED CELL DISTRIBUTION WIDTH 12.9 % (11.0-15.5); WHITE BLOOD COUNT (AUTO) 13.3 K/uL (4.8-10.8)
[2023-07-11 05:01] LABS: PLATELET COUNT (AUTO) 735 K/uL (130-400)
[2023-07-11 05:18] LABS: ALBUMIN 2.3 g/dL (3.5-5.0); BILIRUBIN,TOTAL 0.2 mg/dL (0.2-1.0); CREATININE 0.8 mg/dL (0.5-1.5); POTASSIUM 3.9 mmol/L (3.5-5.1); TOTAL PROTEIN, SERUM 7.4 g/dL (6.0-8.3)
[2023-07-11] MEDS: SIMETHICONE 80 MG TAB.CHEW PO SCH ×4 (05:32→23:52)
[2023-07-11 05:33] LABS: PLATELET MORPHOLOGY COMMENT MARKED INCREASE
[2023-07-11] MEDS: ACETAMINOPHEN WITH CODEINE 1 TAB TAB PO PRN (05:50)
[2023-07-11] MEDS: HYDROCODONE/ACETAMINOPHEN 10/325 MG TAB PO PRN ×3 (06:00→21:11)
[2023-07-11] MEDS: THIAMINE HCL 100 MG/ML 2ML VIAL IVP SCH (09:37)
[2023-07-11] MEDS: DOCUSATE SODIUM 100 MG CAP PO SCH ×2 (09:37→20:17)
[2023-07-11] MEDS: GABAPENTIN 100 MG CAPSULE PO SCH ×3 (09:37→20:16)
[2023-07-11] MEDS: 0.9%NACL 10ML VIAL IV SCH ×2 (09:37→20:16)
[2023-07-11] MEDS: ALPRAZOLAM 0.25 MG TABLET PO SCH ×2 (09:37→20:16)
[2023-07-11] MEDS: METOCLOPRAMIDE 10 MG TABLET PO SCH ×2 (09:37→20:16)
[2023-07-11] MEDS: ENOXAPARIN SODIUM 40 MG/0.4 ML SYRINGE SQ SCH (09:38)
[2023-07-11] MEDS ORDERED: M.V.I. IV [ADULT] 10 ML in CLINIMIX-E 5%AA /D15%W 2000ML 2,000 ML IV ONE (11:30)
[2023-07-11] MEDS: FLUCONAZOLE 200 MG/NS 100 ML IV SCH (14:46)
[2023-07-12] VITALS (10 sets, daily range): BP systolic 103–119; BP diastolic 60–72; PULSE 67–84; RESP 18–20; O2SAT 97–99
[2023-07-12] MEDS: HYDROMORPHONE 0.5 MG SYG (0.5MG/0.5ML) IVP PRN ×4 (03:51→22:30)
[2023-07-12] MEDS: SIMETHICONE 80 MG TAB.CHEW PO SCH ×3 (06:23→18:30)
[2023-07-12] MEDS: HYDROCODONE/ACETAMINOPHEN 10/325 MG TAB PO PRN ×2 (06:28→12:58)
[2023-07-12] MEDS: 0.9%NACL 10ML VIAL IV SCH ×2 (09:00→20:51)
[2023-07-12] MEDS: ALPRAZOLAM 0.25 MG TABLET PO SCH ×2 (09:34→20:51)
[2023-07-12] MEDS: ENOXAPARIN SODIUM 40 MG/0.4 ML SYRINGE SQ SCH (09:35)
[2023-07-12] MEDS: DOCUSATE SODIUM 100 MG CAP PO SCH ×2 (09:35→20:50)
[2023-07-12] MEDS: METOCLOPRAMIDE 10 MG TABLET PO SCH ×2 (09:35→20:50)
[2023-07-12] MEDS: GABAPENTIN 100 MG CAPSULE PO SCH ×3 (09:35→20:50)
[2023-07-12] MEDS: FLUCONAZOLE 200 MG/NS 100 ML IV SCH (15:30)
[2023-07-12] MEDS: ONDANSETRON 4MG INJ IVP PRN (18:34)
[2023-07-12] MEDS: FAMOTIDINE 20MG VIAL IV SCH (20:50)
[2023-07-12] MEDS ORDERED: M.V.I. IV [ADULT] 10 ML in CLINIMIX-E 5%AA /D15%W 2000ML 2,000 ML IV SCH (21:00)
[2023-07-13] VITALS (8 sets, daily range): BP systolic 95–115; BP diastolic 56–73; PULSE 68–79; RESP 18–20; O2SAT 99–100
[2023-07-13] MEDS: SIMETHICONE 80 MG TAB.CHEW PO SCH ×4 (01:56→18:00)
[2023-07-13] MEDS: HYDROCODONE/ACETAMINOPHEN 10/325 MG TAB PO PRN ×4 (02:00→20:30)
[2023-07-13 05:29] LABS: HEMATOCRIT 32.9 % (42-54); MEAN CORPUSCULAR HEMOGLOBIN 29.2 pg (27.0-33.0); MEAN CORPUSCULAR HGB CONC 31.3 g/dL (32.0-36.0); MEAN CORPUSCULAR VOLUME 93.2 fL (79-99); RED BLOOD CELL COUNT(AUTO) 3.53 MIL/uL (4.50-6.20); RED CELL DISTRIBUTION WIDTH 12.8 % (11.0-15.5); WHITE BLOOD COUNT (AUTO) 12.1 K/uL (4.8-10.8)
[2023-07-13] MEDS: HYDROMORPHONE 0.5 MG SYG (0.5MG/0.5ML) IVP PRN (06:19)
[2023-07-13 06:22] LABS: ALBUMIN 2.5 g/dL (3.5-5.0); BILIRUBIN,TOTAL 0.3 mg/dL (0.2-1.0); CREATININE 0.8 mg/dL (0.5-1.5); MAGNESIUM 2.2 mg/dL (1.80-2.40); POTASSIUM 3.8 mmol/L (3.5-5.1); TOTAL PROTEIN, SERUM 7.7 g/dL (6.0-8.3)
[2023-07-13] MEDS: 0.9%NACL 10ML VIAL IV SCH ×2 (09:00→20:31)
[2023-07-13] MEDS: ALPRAZOLAM 0.25 MG TABLET PO SCH ×2 (10:03→20:30)
[2023-07-13] MEDS: FAMOTIDINE 20MG VIAL IV SCH ×2 (10:03→20:30)
[2023-07-13] MEDS: GABAPENTIN 100 MG CAPSULE PO SCH ×3 (10:03→20:30)
[2023-07-13] MEDS: ENOXAPARIN SODIUM 40 MG/0.4 ML SYRINGE SQ SCH (10:03)
[2023-07-13] MEDS: DOCUSATE SODIUM 100 MG CAP PO SCH ×2 (10:04→20:30)
[2023-07-13] MEDS: METOCLOPRAMIDE 10 MG TABLET PO SCH ×2 (10:04→20:30)
[2023-07-13] MEDS: FLUCONAZOLE 200 MG/NS 100 ML IV SCH (13:53)
[2023-07-13] MEDS ORDERED: M.V.I. IV [ADULT] 10 ML in CLINIMIX-E 5%AA /D15%W 2000ML 2,000 ML IV SCH (20:00)
[2023-07-13] MEDS ORDERED: 0.9%NACL 50ML IV SCH (20:00)
[2023-07-13] MEDS: ZOSYN 3.375GM +NS 50ML IVPB SCH (20:29)
[2023-07-14] VITALS (7 sets, daily range): BP systolic 104–112; BP diastolic 66–74; PULSE 67–86; RESP 18–20; O2SAT 99–100
[2023-07-14] MEDS: HYDROCODONE/ACETAMINOPHEN 10/325 MG TAB PO PRN ×5 (01:56→19:47)
[2023-07-14] MEDS: ZOSYN 3.375GM +NS 50ML IVPB SCH ×3 (03:56→19:45)
[2023-07-14 04:18] LABS: HEMATOCRIT 31.9 % (42-54); MEAN CORPUSCULAR HEMOGLOBIN 29.4 pg (27.0-33.0); MEAN CORPUSCULAR VOLUME 91.9 fL (79-99); RED BLOOD CELL COUNT(AUTO) 3.47 MIL/uL (4.50-6.20); RED CELL DISTRIBUTION WIDTH 12.7 % (11.0-15.5); WHITE BLOOD COUNT (AUTO) 10.2 K/uL (4.8-10.8)
[2023-07-14 04:25] LABS: CREATININE 0.8 mg/dL (0.5-1.5); POTASSIUM 4.2 mmol/L (3.5-5.1)
[2023-07-14] MEDS: SIMETHICONE 80 MG TAB.CHEW PO SCH ×5 (05:55→23:23)
[2023-07-14] MEDS: 0.9%NACL 10ML VIAL IV SCH ×2 (08:54→19:45)
[2023-07-14] MEDS: DOCUSATE SODIUM 100 MG CAP PO SCH ×2 (09:04→19:46)
[2023-07-14] MEDS: ENOXAPARIN SODIUM 40 MG/0.4 ML SYRINGE SQ SCH (09:04)
[2023-07-14] MEDS: METOCLOPRAMIDE 10 MG TABLET PO SCH ×2 (09:04→19:46)
[2023-07-14] MEDS: ALPRAZOLAM 0.25 MG TABLET PO SCH ×2 (09:04→19:46)
[2023-07-14] MEDS: FAMOTIDINE 20MG VIAL IV SCH ×2 (09:04→19:46)
[2023-07-14] MEDS: GABAPENTIN 100 MG CAPSULE PO SCH ×3 (09:04→19:52)
[2023-07-14] MEDS: ONDANSETRON 4MG INJ IVP PRN (12:57)
[2023-07-14] MEDS: FLUCONAZOLE 200 MG/NS 100 ML IV SCH (15:45)
[2023-07-15] VITALS (9 sets, daily range): BP systolic 92–113; BP diastolic 61–71; PULSE 74–84; RESP 17–20; O2SAT 96–98
[2023-07-15] MEDS: HYDROCODONE/ACETAMINOPHEN 10/325 MG TAB PO PRN ×3 (02:26→22:26)
[2023-07-15] MEDS: M.V.I. IV [ADULT] 10 ML in CLINIMIX-E 5%AA /D15%W 2000ML 2,000 ML IV SCH (02:27)
[2023-07-15] MEDS: ZOSYN 3.375GM +NS 50ML IVPB SCH ×3 (03:59→21:03)
[2023-07-15 04:53] LABS: BASOPHILS # (AUTO) 0.03 K/uL (0.00-0.20); BASOPHILS % (AUTO) 0.3 % (0.0-5.0); EOSINOPHILS # (AUTO) 0.31 K/uL (0.00-0.70); EOSINOPHILS % (AUTO) 3.2 % (0.0-8.0); HEMATOCRIT 31.6 % (42-54); IMMATURE GRANULOCYTE ABSOLUTE 0.04 K/uL (0-1); LYMPHOCYTES # (AUTO) 2.8 K/uL (1.0-4.8); LYMPHOCYTES % (AUTO) 29.2 % (21.0-51.0); MEAN CORPUSCULAR HEMOGLOBIN 29.2 pg (27.0-33.0); MEAN CORPUSCULAR HGB CONC 31.6 g/dL (32.0-36.0); MEAN CORPUSCULAR VOLUME 92.1 fL (79-99); MONOCYTES # (AUTO) 0.7 K/uL (0.1-1.0); MONOCYTES % (AUTO) 6.8 % (3.0-13.0); NEUTROPHILS # (AUTO) 5.8 K/uL (1.8-7.7); NEUTROPHILS % (AUTO) 60.1 % (40.0-77.0); PLATELET COUNT (AUTO) 627 K/uL (130-400); RED BLOOD CELL COUNT(AUTO) 3.43 MIL/uL (4.50-6.20); RED CELL DISTRIBUTION WIDTH 12.8 % (11.0-15.5); WHITE BLOOD COUNT (AUTO) 9.6 K/uL (4.8-10.8)
[2023-07-15] MEDS: SIMETHICONE 80 MG TAB.CHEW PO SCH ×3 (05:12→18:00)
[2023-07-15 05:13] LABS: CREATININE 0.9 mg/dL (0.5-1.5); POTASSIUM 4.2 mmol/L (3.5-5.1)
[2023-07-15] MEDS: GABAPENTIN 100 MG CAPSULE PO SCH ×3 (09:00→21:05)
[2023-07-15] MEDS: DOCUSATE SODIUM 100 MG CAP PO SCH ×2 (09:00→21:04)
[2023-07-15] MEDS: METOCLOPRAMIDE 10 MG TABLET PO SCH ×2 (09:00→21:04)
[2023-07-15] MEDS: ALPRAZOLAM 0.25 MG TABLET PO SCH ×2 (09:00→21:04)
[2023-07-15] MEDS: ENOXAPARIN SODIUM 40 MG/0.4 ML SYRINGE SQ SCH (09:00)
[2023-07-15] MEDS: FAMOTIDINE 20MG VIAL IV SCH ×2 (10:03→21:04)
[2023-07-15] MEDS: 0.9%NACL 10ML VIAL IV SCH ×2 (10:03→21:03)
[2023-07-15] MEDS: KETOROLAC 30MG VIAL (30MG/ML) IM PRN (12:27)
[2023-07-15 13:39] LABS: % IRON SATURATION 7.3 % (30-44)
[2023-07-15] MEDS: FLUCONAZOLE 200 MG/NS 100 ML IV SCH (17:09)
[2023-07-15] MEDS: ONDANSETRON 4MG INJ IVP PRN (17:22)
[2023-07-16] MEDS: M.V.I. IV [ADULT] 10 ML in CLINIMIX-E 5%AA /D15%W 2000ML 2,000 ML IV SCH (01:46)
[2023-07-16 03:50] VITALS: BP 106/75; PULSE 78; RESP 18
[2023-07-16] MEDS: ZOSYN 3.375GM +NS 50ML IVPB SCH ×3 (04:04→22:08)
[2023-07-16] MEDS: KETOROLAC 30MG VIAL (30MG/ML) IM PRN (04:54)
[2023-07-16] MEDS: SIMETHICONE 80 MG TAB.CHEW PO SCH ×4 (05:01→18:01)
[2023-07-16 06:20] LABS: BASOPHILS # (AUTO) 0.03 K/uL (0.00-0.20); BASOPHILS % (AUTO) 0.4 % (0.0-5.0); EOSINOPHILS # (AUTO) 0.27 K/uL (0.00-0.70); EOSINOPHILS % (AUTO) 3.4 % (0.0-8.0); HEMATOCRIT 29.1 % (42-54); IMMATURE GRANULOCYTE ABSOLUTE 0.04 K/uL (0-1); LYMPHOCYTES # (AUTO) 2.4 K/uL (1.0-4.8); LYMPHOCYTES % (AUTO) 30.7 % (21.0-51.0); MEAN CORPUSCULAR HEMOGLOBIN 28.8 pg (27.0-33.0); MEAN CORPUSCULAR HGB CONC 31.6 g/dL (32.0-36.0); MEAN CORPUSCULAR VOLUME 90.9 fL (79-99); MONOCYTES # (AUTO) 0.6 K/uL (0.1-1.0); MONOCYTES % (AUTO) 7.7 % (3.0-13.0); NEUTROPHILS # (AUTO) 4.5 K/uL (1.8-7.7); NEUTROPHILS % (AUTO) 57.3 % (40.0-77.0); PLATELET COUNT (AUTO) 640 K/uL (130-400); RED CELL DISTRIBUTION WIDTH 12.9 % (11.0-15.5); WHITE BLOOD COUNT (AUTO) 7.8 K/uL (4.8-10.8)
[2023-07-16 06:35] LABS: ALBUMIN 2.5 g/dL (3.5-5.0); BILIRUBIN,TOTAL 0.2 mg/dL (0.2-1.0); CREATININE 0.9 mg/dL (0.5-1.5); POTASSIUM 3.9 mmol/L (3.5-5.1); TOTAL PROTEIN, SERUM 7.4 g/dL (6.0-8.3)
[2023-07-16 08:00] VITALS: BP 109/66; PULSE 72; RESP 16; O2SAT 98
[2023-07-16] MEDS: 0.9%NACL 10ML VIAL IV SCH ×2 (09:51→22:08)
[2023-07-16] MEDS: GABAPENTIN 100 MG CAPSULE PO SCH ×3 (09:51→22:09)
[2023-07-16] MEDS: METOCLOPRAMIDE 10 MG TABLET PO SCH ×2 (09:51→22:09)
[2023-07-16] MEDS: ALPRAZOLAM 0.25 MG TABLET PO SCH ×2 (09:51→22:09)
[2023-07-16] MEDS: DOCUSATE SODIUM 100 MG CAP PO SCH ×2 (09:51→22:08)
[2023-07-16] MEDS: FAMOTIDINE 20MG VIAL IV SCH ×2 (09:51→22:08)
[2023-07-16] MEDS: ENOXAPARIN SODIUM 40 MG/0.4 ML SYRINGE SQ SCH (09:52)
[2023-07-16 11:45] VITALS: BP 102/64; PULSE 65; RESP 18
[2023-07-16] MEDS: ACETAMINOPHEN WITH CODEINE 1 TAB TAB PO PRN (13:41)
[2023-07-16 16:00] VITALS: BP 101/58; PULSE 70; RESP 16
[2023-07-16] MEDS: FLUCONAZOLE 200 MG/NS 100 ML IV SCH (16:04)
[2023-07-16] MEDS: HYDROCODONE/ACETAMINOPHEN 5/325 MG TAB PO PRN (18:10)
[2023-07-16 20:00] VITALS: BP 111/66; PULSE 68; RESP 20
[2023-07-16] MEDS ORDERED: IRON SUCROSE COMPLEX 300 MG in 0.9% NACL 250ML 250 ML IV ONE (21:00)
[2023-07-16] MEDS: IRON SUCROSE COMPLEX 300 MG in 0.9% NACL 250ML 250 ML IV SCH (22:08)
[2023-07-17] VITALS (8 sets, daily range): BP systolic 92–124; BP diastolic 59–80; PULSE 64–77; RESP 18–19; O2SAT 96
[2023-07-17] MEDS: SIMETHICONE 80 MG TAB.CHEW PO SCH ×5 (00:29→23:22)
[2023-07-17] MEDS: HYDROCODONE/ACETAMINOPHEN 5/325 MG TAB PO PRN ×4 (02:24→21:57)
[2023-07-17] MEDS: ZOSYN 3.375GM +NS 50ML IVPB SCH ×3 (04:44→20:26)
[2023-07-17 05:21] LABS: BASOPHILS # (AUTO) 0.05 K/uL (0.00-0.20); BASOPHILS % (AUTO) 0.6 % (0.0-5.0); EOSINOPHILS # (AUTO) 0.26 K/uL (0.00-0.70); HEMATOCRIT 31.6 % (42-54); IMMATURE GRANULOCYTE ABSOLUTE 0.03 K/uL (0-1); LYMPHOCYTES # (AUTO) 2.8 K/uL (1.0-4.8); LYMPHOCYTES % (AUTO) 31.5 % (21.0-51.0); MEAN CORPUSCULAR HEMOGLOBIN 28.7 pg (27.0-33.0); MEAN CORPUSCULAR HGB CONC 30.4 g/dL (32.0-36.0); MEAN CORPUSCULAR VOLUME 94.3 fL (79-99); MONOCYTES # (AUTO) 0.6 K/uL (0.1-1.0); MONOCYTES % (AUTO) 6.9 % (3.0-13.0); NEUTROPHILS # (AUTO) 5.1 K/uL (1.8-7.7); NEUTROPHILS % (AUTO) 57.7 % (40.0-77.0); PLATELET COUNT (AUTO) 607 K/uL (130-400); RED BLOOD CELL COUNT(AUTO) 3.35 MIL/uL (4.50-6.20); RED CELL DISTRIBUTION WIDTH 12.8 % (11.0-15.5); WHITE BLOOD COUNT (AUTO) 8.8 K/uL (4.8-10.8)
[2023-07-17 05:35] LABS: ALBUMIN 2.7 g/dL (3.5-5.0); BILIRUBIN,TOTAL 0.2 mg/dL (0.2-1.0); POTASSIUM 4.2 mmol/L (3.5-5.1); TOTAL PROTEIN, SERUM 7.7 g/dL (6.0-8.3)
[2023-07-17] MEDS: ACETAMINOPHEN WITH CODEINE 1 TAB TAB PO PRN (06:18)
[2023-07-17] MEDS: GABAPENTIN 100 MG CAPSULE PO SCH ×3 (09:17→20:29)
[2023-07-17] MEDS: DOCUSATE SODIUM 100 MG CAP PO SCH ×2 (09:17→20:29)
[2023-07-17] MEDS: FAMOTIDINE 20MG VIAL IV SCH ×2 (09:17→20:28)
[2023-07-17] MEDS: ALPRAZOLAM 0.25 MG TABLET PO SCH ×2 (09:17→20:29)
[2023-07-17] MEDS: METOCLOPRAMIDE 10 MG TABLET PO SCH ×2 (09:17→20:29)
[2023-07-17] MEDS: 0.9%NACL 10ML VIAL IV SCH ×2 (09:17→20:27)
[2023-07-17] MEDS: ENOXAPARIN SODIUM 40 MG/0.4 ML SYRINGE SQ SCH (09:18)
[2023-07-17] MEDS: FLUCONAZOLE 200 MG/NS 100 ML IV SCH (14:59)
[2023-07-17] MEDS: ONDANSETRON 4MG INJ IVP PRN (16:09)
[2023-07-17] MEDS: IRON SUCROSE COMPLEX 300 MG in 0.9% NACL 250ML 250 ML IV SCH (20:27)
[2023-07-18] VITALS (7 sets, daily range): BP systolic 92–117; BP diastolic 57–71; PULSE 63–72; RESP 18–19; O2SAT 98–99
[2023-07-18] MEDS ORDERED: DIATR MEGLU/DIATRIZOATE SODIUM 30 ML BOTTLE ONE (08:50)
[2023-07-18] MEDS: SIMETHICONE 80 MG TAB.CHEW PO SCH ×2 (12:00→18:21)
[2023-07-18 14:44] LABS: BASOPHILS # (AUTO) 0.04 K/uL (0.00-0.20); BASOPHILS % (AUTO) 0.4 % (0.0-5.0); EOSINOPHILS # (AUTO) 0.21 K/uL (0.00-0.70); EOSINOPHILS % (AUTO) 2.3 % (0.0-8.0); HEMATOCRIT 30.9 % (42-54); IMMATURE GRANULOCYTE ABSOLUTE 0.02 K/uL (0-1); LYMPHOCYTES # (AUTO) 2.6 K/uL (1.0-4.8); LYMPHOCYTES % (AUTO) 28.3 % (21.0-51.0); MEAN CORPUSCULAR HGB CONC 31.1 g/dL (32.0-36.0); MEAN CORPUSCULAR VOLUME 93.4 fL (79-99); MONOCYTES # (AUTO) 0.6 K/uL (0.1-1.0); MONOCYTES % (AUTO) 6.7 % (3.0-13.0); NEUTROPHILS # (AUTO) 5.7 K/uL (1.8-7.7); NEUTROPHILS % (AUTO) 62.1 % (40.0-77.0); PLATELET COUNT (AUTO) 529 K/uL (130-400); RED BLOOD CELL COUNT(AUTO) 3.31 MIL/uL (4.50-6.20); RED CELL DISTRIBUTION WIDTH 13.1 % (11.0-15.5); WHITE BLOOD COUNT (AUTO) 9.3 K/uL (4.8-10.8)
[2023-07-18] MEDS ORDERED: KETOROLAC 30MG VIAL (30MG/ML) IV PRN (16:30)
[2023-07-18] MEDS: 0.9%NACL 10ML VIAL IV SCH ×2 (16:43→19:48)
[2023-07-18] MEDS: ZOSYN 3.375GM +NS 50ML IVPB SCH ×2 (16:43→19:48)
[2023-07-18] MEDS: FAMOTIDINE 20MG VIAL IV SCH ×2 (16:43→19:50)
[2023-07-18] MEDS: METOCLOPRAMIDE 10 MG TABLET PO SCH ×2 (16:44→19:50)
[2023-07-18] MEDS: GABAPENTIN 100 MG CAPSULE PO SCH ×3 (16:44→19:52)
[2023-07-18] MEDS: DOCUSATE SODIUM 100 MG CAP PO SCH ×2 (16:44→19:50)
[2023-07-18] MEDS: ALPRAZOLAM 0.25 MG TABLET PO SCH ×2 (16:45→19:50)
[2023-07-18] MEDS: ENOXAPARIN SODIUM 40 MG/0.4 ML SYRINGE SQ SCH (16:45)
[2023-07-18] MEDS: FLUCONAZOLE 200 MG/NS 100 ML IV SCH (16:45)
[2023-07-18] MEDS: HYDROCODONE/ACETAMINOPHEN 5/325 MG TAB PO PRN (17:01)
[2023-07-18] MEDS: IRON SUCROSE COMPLEX 300 MG in 0.9% NACL 250ML 250 ML IV SCH (19:49)
[2023-07-18 23:18] LABS: ALBUMIN 2.7 g/dL (3.5-5.0); BILIRUBIN,TOTAL 0.2 mg/dL (0.2-1.0); CREATININE 1.1 mg/dL (0.5-1.5); POTASSIUM 3.9 mmol/L (3.5-5.1); TOTAL PROTEIN, SERUM 7.4 g/dL (6.0-8.3)
[2023-07-19] VITALS (7 sets, daily range): BP systolic 94–127; BP diastolic 57–64; PULSE 56–75; RESP 17–18; O2SAT 98–99
[2023-07-19] MEDS: SIMETHICONE 80 MG TAB.CHEW PO SCH ×5 (01:01→23:15)
[2023-07-19] MEDS: HYDROCODONE/ACETAMINOPHEN 5/325 MG TAB PO PRN ×4 (01:16→23:31)
[2023-07-19] MEDS: ZOSYN 3.375GM +NS 50ML IVPB SCH ×3 (03:50→20:47)
[2023-07-19] MEDS: 0.9%NACL 10ML VIAL IV SCH ×2 (08:09→20:47)
[2023-07-19] MEDS: ENOXAPARIN SODIUM 40 MG/0.4 ML SYRINGE SQ SCH (08:09)
[2023-07-19] MEDS: METOCLOPRAMIDE 10 MG TABLET PO SCH ×2 (08:10→20:48)
[2023-07-19] MEDS: ALPRAZOLAM 0.25 MG TABLET PO SCH ×2 (08:10→20:48)
[2023-07-19] MEDS: DOCUSATE SODIUM 100 MG CAP PO SCH ×2 (08:10→20:48)
[2023-07-19] MEDS: GABAPENTIN 100 MG CAPSULE PO SCH ×3 (08:11→20:48)
[2023-07-19] MEDS: FAMOTIDINE 20MG VIAL IV SCH ×2 (08:13→20:48)
[2023-07-19 08:41] LABS: BASOPHILS # (AUTO) 0.03 K/uL (0.00-0.20); BASOPHILS % (AUTO) 0.3 % (0.0-5.0); EOSINOPHILS # (AUTO) 0.23 K/uL (0.00-0.70); EOSINOPHILS % (AUTO) 2.7 % (0.0-8.0); HEMATOCRIT 31.3 % (42-54); IMMATURE GRANULOCYTE ABSOLUTE 0.02 K/uL (0-1); LYMPHOCYTES # (AUTO) 2.5 K/uL (1.0-4.8); LYMPHOCYTES % (AUTO) 29.4 % (21.0-51.0); MEAN CORPUSCULAR HEMOGLOBIN 28.7 pg (27.0-33.0); MEAN CORPUSCULAR HGB CONC 31.3 g/dL (32.0-36.0); MEAN CORPUSCULAR VOLUME 91.8 fL (79-99); MONOCYTES # (AUTO) 0.5 K/uL (0.1-1.0); MONOCYTES % (AUTO) 6.2 % (3.0-13.0); NEUTROPHILS # (AUTO) 5.3 K/uL (1.8-7.7); NEUTROPHILS % (AUTO) 61.2 % (40.0-77.0); PLATELET COUNT (AUTO) 412 K/uL (130-400); RED BLOOD CELL COUNT(AUTO) 3.41 MIL/uL (4.50-6.20); WHITE BLOOD COUNT (AUTO) 8.6 K/uL (4.8-10.8)
[2023-07-19 09:00] LABS: ALBUMIN 2.8 g/dL (3.5-5.0); BILIRUBIN,TOTAL 0.2 mg/dL (0.2-1.0); CREATININE 0.9 mg/dL (0.5-1.5); POTASSIUM 3.8 mmol/L (3.5-5.1); TOTAL PROTEIN, SERUM 7.5 g/dL (6.0-8.3)
[2023-07-19] MEDS: FLUCONAZOLE 200 MG/NS 100 ML IV SCH (12:48)
[2023-07-19] MEDS ORDERED: DEXTROSE 5 %-0.45 % NACL 1,000 ML IV SCH (16:30)
[2023-07-19] MEDS ORDERED: PHARMACY COMMUNICATION MISC SCH ×2 (16:30→17:00)
[2023-07-19] MEDS ORDERED: CLINIMIX-E 5%AA /D15%W 2000ML 2,000 ML IV ONE (18:00)
[2023-07-19] MEDS: OCTREOTIDE ACETATE 100 MCG/ML AMP IVP SCH (20:48)
[2023-07-19] MEDS: ACETAMINOPHEN WITH CODEINE 1 TAB TAB PO PRN (20:49)
[2023-07-19] MEDS ORDERED: OCTREOTIDE ACETATE 100 MCG/ML AMP IV SCH ×2 (21:00)
[2023-07-20] VITALS (7 sets, daily range): BP systolic 95–116; BP diastolic 61–71; PULSE 52–67; RESP 16–18; O2SAT 97–99
[2023-07-20] MEDS: ZOSYN 3.375GM +NS 50ML IVPB SCH ×3 (03:13→20:34)
[2023-07-20] MEDS: SIMETHICONE 80 MG TAB.CHEW PO SCH ×4 (05:32→23:26)
[2023-07-20] MEDS: HYDROCODONE/ACETAMINOPHEN 5/325 MG TAB PO PRN ×3 (05:33→19:33)
[2023-07-20] MEDS: DOCUSATE SODIUM 100 MG CAP PO SCH ×2 (09:22→20:34)
[2023-07-20] MEDS: FAMOTIDINE 20MG VIAL IV SCH ×2 (09:22→20:34)
[2023-07-20] MEDS: 0.9%NACL 10ML VIAL IV SCH ×2 (09:22→20:35)
[2023-07-20] MEDS: OCTREOTIDE ACETATE 100 MCG/ML AMP IVP SCH ×3 (09:22→20:34)
[2023-07-20] MEDS: ALPRAZOLAM 0.25 MG TABLET PO SCH ×2 (09:22→20:34)
[2023-07-20] MEDS: GABAPENTIN 100 MG CAPSULE PO SCH ×3 (09:22→20:34)
[2023-07-20] MEDS: METOCLOPRAMIDE 10 MG TABLET PO SCH ×2 (09:22→20:34)
[2023-07-20] MEDS: ENOXAPARIN SODIUM 40 MG/0.4 ML SYRINGE SQ SCH (09:23)
[2023-07-20] MEDS ORDERED: CLINIMIX-E 5%AA /D15%W 2000ML 2,000 ML IV ONE (16:30)
[2023-07-20] MEDS: FLUCONAZOLE 200 MG/NS 100 ML IV SCH (17:24)
[2023-07-20] MEDS: ONDANSETRON 4MG INJ IVP PRN (18:49)
[2023-07-21] VITALS (7 sets, daily range): BP systolic 96–110; BP diastolic 56–73; PULSE 50–57; RESP 16–18; O2SAT 98
[2023-07-21] MEDS: HYDROCODONE/ACETAMINOPHEN 5/325 MG TAB PO PRN ×3 (02:29→23:19)
[2023-07-21] MEDS: ZOSYN 3.375GM +NS 50ML IVPB SCH ×3 (03:39→20:26)
[2023-07-21] MEDS: SIMETHICONE 80 MG TAB.CHEW PO SCH ×4 (05:21→23:18)
[2023-07-21 06:03] LABS: HEMATOCRIT 30.6 % (42-54); MEAN CORPUSCULAR HEMOGLOBIN 29.4 pg (27.0-33.0); MEAN CORPUSCULAR VOLUME 91.9 fL (79-99); RED BLOOD CELL COUNT(AUTO) 3.33 MIL/uL (4.50-6.20); WHITE BLOOD COUNT (AUTO) 8.8 K/uL (4.8-10.8)
[2023-07-21 06:22] LABS: ALBUMIN 2.7 g/dL (3.5-5.0); BILIRUBIN,TOTAL 0.2 mg/dL (0.2-1.0); CREATININE 0.9 mg/dL (0.5-1.5); POTASSIUM 3.7 mmol/L (3.5-5.1); TOTAL PROTEIN, SERUM 7.3 g/dL (6.0-8.3)
[2023-07-21] MEDS: FAMOTIDINE 20MG VIAL IV SCH ×2 (09:35→20:27)
[2023-07-21] MEDS: ALPRAZOLAM 0.25 MG TABLET PO SCH ×2 (09:35→20:27)
[2023-07-21] MEDS: METOCLOPRAMIDE 10 MG TABLET PO SCH ×2 (09:35→20:27)
[2023-07-21] MEDS: 0.9%NACL 10ML VIAL IV SCH ×2 (09:35→20:30)
[2023-07-21] MEDS: DOCUSATE SODIUM 100 MG CAP PO SCH ×2 (09:35→20:27)
[2023-07-21] MEDS: ENOXAPARIN SODIUM 40 MG/0.4 ML SYRINGE SQ SCH (09:36)
[2023-07-21] MEDS: GABAPENTIN 100 MG CAPSULE PO SCH ×3 (09:38→20:27)
[2023-07-21] MEDS: OCTREOTIDE ACETATE 100 MCG/ML AMP IVP SCH ×3 (09:38→20:27)
[2023-07-21] MEDS: FLUCONAZOLE 200 MG/NS 100 ML IV SCH (17:24)
[2023-07-21] MEDS: POTASSIUM CHLORIDE 10MEQ/100ML 100 ML IV PRN (18:29)
[2023-07-21] MEDS ORDERED: CLINIMIX-E 5%AA /D15%W 2000ML 2,000 ML IV ONE (18:30)
[2023-07-21] MEDS: ACETAMINOPHEN WITH CODEINE 1 TAB TAB PO PRN (20:28)
[2023-07-21] MEDS ORDERED: HYDROCODONE/ACETAMINOPHEN 5/325 MG TAB PO PRN (20:30)
[2023-07-22] VITALS (8 sets, daily range): BP systolic 95–187; BP diastolic 53–84; PULSE 54–63; RESP 18–20; O2SAT 94–95
[2023-07-22] MEDS: ZOSYN 3.375GM +NS 50ML IVPB SCH ×3 (03:23→20:06)
[2023-07-22] MEDS: SIMETHICONE 80 MG TAB.CHEW PO SCH ×4 (05:13→23:26)
[2023-07-22] MEDS: GABAPENTIN 100 MG CAPSULE PO SCH ×3 (09:00→20:18)
[2023-07-22] MEDS: 0.9%NACL 10ML VIAL IV SCH ×2 (09:17→20:07)
[2023-07-22] MEDS: FAMOTIDINE 20MG VIAL IV SCH ×2 (09:18→20:07)
[2023-07-22] MEDS: OCTREOTIDE ACETATE 100 MCG/ML AMP IVP SCH ×3 (09:20→20:08)
[2023-07-22] MEDS: METOCLOPRAMIDE 10 MG TABLET PO SCH ×2 (09:21→20:06)
[2023-07-22] MEDS: ALPRAZOLAM 0.25 MG TABLET PO SCH ×2 (09:21→20:06)
[2023-07-22] MEDS: DOCUSATE SODIUM 100 MG CAP PO SCH ×2 (09:22→20:06)
[2023-07-22] MEDS: ENOXAPARIN SODIUM 40 MG/0.4 ML SYRINGE SQ SCH (09:22)
[2023-07-22] MEDS: FLUCONAZOLE 200 MG/NS 100 ML IV SCH (14:22)
[2023-07-22] MEDS: HYDROCODONE/ACETAMINOPHEN 5/325 MG TAB PO PRN (17:33)
[2023-07-22] MEDS ORDERED: FAT EMULSIONS 20% 250ML IV ONE (21:00)
[2023-07-22] MEDS ORDERED: M.V.I. IV [ADULT] 10 ML, MULTITRACE-4 ADULT 10ML VIAL 3 ML in CLINIMIX-E 5%AA /D15%W 2... IV ONE (21:00)
[2023-07-23] VITALS (7 sets, daily range): BP systolic 95–114; BP diastolic 55–74; PULSE 43–58; RESP 18–20; O2SAT 98
[2023-07-23] MEDS: HYDROCODONE/ACETAMINOPHEN 5/325 MG TAB PO PRN ×3 (02:01→16:52)
[2023-07-23] MEDS: ZOSYN 3.375GM +NS 50ML IVPB SCH ×3 (03:31→20:36)
[2023-07-23 05:16] LABS: BASOPHILS # (AUTO) 0.03 K/uL (0.00-0.20); BASOPHILS % (AUTO) 0.3 % (0.0-5.0); EOSINOPHILS # (AUTO) 0.37 K/uL (0.00-0.70); EOSINOPHILS % (AUTO) 4.2 % (0.0-8.0); HEMATOCRIT 32.6 % (42-54); IMMATURE GRANULOCYTE ABSOLUTE 0.03 K/uL (0-1); LYMPHOCYTES # (AUTO) 2.8 K/uL (1.0-4.8); LYMPHOCYTES % (AUTO) 31.7 % (21.0-51.0); MEAN CORPUSCULAR HEMOGLOBIN 28.7 pg (27.0-33.0); MEAN CORPUSCULAR HGB CONC 30.4 g/dL (32.0-36.0); MEAN CORPUSCULAR VOLUME 94.5 fL (79-99); MONOCYTES # (AUTO) 0.5 K/uL (0.1-1.0); MONOCYTES % (AUTO) 5.1 % (3.0-13.0); NEUTROPHILS # (AUTO) 5.2 K/uL (1.8-7.7); NEUTROPHILS % (AUTO) 58.4 % (40.0-77.0); PLATELET COUNT (AUTO) 315 K/uL (130-400); RED BLOOD CELL COUNT(AUTO) 3.45 MIL/uL (4.50-6.20); RED CELL DISTRIBUTION WIDTH 13.1 % (11.0-15.5); WHITE BLOOD COUNT (AUTO) 8.9 K/uL (4.8-10.8)
[2023-07-23] MEDS: SIMETHICONE 80 MG TAB.CHEW PO SCH ×4 (05:28→23:57)
[2023-07-23 05:37] LABS: ALBUMIN 2.8 g/dL (3.5-5.0); BILIRUBIN,TOTAL 0.1 mg/dL (0.2-1.0); POTASSIUM 3.5 mmol/L (3.5-5.1); TOTAL PROTEIN, SERUM 7.2 g/dL (6.0-8.3)
[2023-07-23] MEDS: ALPRAZOLAM 0.25 MG TABLET PO SCH ×2 (08:41→21:06)
[2023-07-23] MEDS: METOCLOPRAMIDE 10 MG TABLET PO SCH ×2 (08:41→20:36)
[2023-07-23] MEDS: FAMOTIDINE 20MG VIAL IV SCH ×2 (08:41→20:36)
[2023-07-23] MEDS: 0.9%NACL 10ML VIAL IV SCH ×2 (08:42→20:38)
[2023-07-23] MEDS: ENOXAPARIN SODIUM 40 MG/0.4 ML SYRINGE SQ SCH (08:42)
[2023-07-23] MEDS: OCTREOTIDE ACETATE 100 MCG/ML AMP IVP SCH ×3 (08:52→21:00)
[2023-07-23] MEDS: DOCUSATE SODIUM 100 MG CAP PO SCH ×2 (08:52→20:36)
[2023-07-23] MEDS: GABAPENTIN 100 MG CAPSULE PO SCH ×3 (08:52→21:00)
[2023-07-23] MEDS: FLUCONAZOLE 200 MG/NS 100 ML IV SCH (14:09)
[2023-07-23] MEDS ORDERED: M.V.I. IV [ADULT] 10 ML in CLINIMIX-E 5%AA /D15%W 2000ML 2,000 ML IV ONE (19:30)
[2023-07-24] VITALS (7 sets, daily range): BP systolic 92–122; BP diastolic 60–71; PULSE 46–62; RESP 16–19; O2SAT 99
[2023-07-24] MEDS: HYDROCODONE/ACETAMINOPHEN 5/325 MG TAB PO PRN ×2 (01:47→17:37)
[2023-07-24] MEDS: ZOSYN 3.375GM +NS 50ML IVPB SCH ×3 (03:57→21:00)
[2023-07-24 04:59] LABS: BASOPHILS # (AUTO) 0.02 K/uL (0.00-0.20); BASOPHILS % (AUTO) 0.3 % (0.0-5.0); EOSINOPHILS # (AUTO) 0.28 K/uL (0.00-0.70); EOSINOPHILS % (AUTO) 4.4 % (0.0-8.0); HEMATOCRIT 31.1 % (42-54); IMMATURE GRANULOCYTE ABSOLUTE 0.03 K/uL (0-1); LYMPHOCYTES # (AUTO) 2.4 K/uL (1.0-4.8); LYMPHOCYTES % (AUTO) 38.7 % (21.0-51.0); MEAN CORPUSCULAR HEMOGLOBIN 29.3 pg (27.0-33.0); MEAN CORPUSCULAR HGB CONC 31.5 g/dL (32.0-36.0); MEAN CORPUSCULAR VOLUME 93.1 fL (79-99); MONOCYTES # (AUTO) 0.4 K/uL (0.1-1.0); MONOCYTES % (AUTO) 5.9 % (3.0-13.0); NEUTROPHILS # (AUTO) 3.2 K/uL (1.8-7.7); NEUTROPHILS % (AUTO) 50.2 % (40.0-77.0); PLATELET COUNT (AUTO) 288 K/uL (130-400); RED BLOOD CELL COUNT(AUTO) 3.34 MIL/uL (4.50-6.20); RED CELL DISTRIBUTION WIDTH 13.3 % (11.0-15.5); WHITE BLOOD COUNT (AUTO) 6.3 K/uL (4.8-10.8)
[2023-07-24 05:13] LABS: CREATININE 0.8 mg/dL (0.5-1.5); POTASSIUM 3.4 mmol/L (3.5-5.1)
[2023-07-24] MEDS: SIMETHICONE 80 MG TAB.CHEW PO SCH ×3 (06:04→17:37)
[2023-07-24] MEDS: GABAPENTIN 100 MG CAPSULE PO SCH ×3 (08:53→21:10)
[2023-07-24] MEDS: ALPRAZOLAM 0.25 MG TABLET PO SCH ×2 (08:53→21:09)
[2023-07-24] MEDS: FAMOTIDINE 20MG VIAL IV SCH ×2 (08:54→21:11)
[2023-07-24] MEDS: METOCLOPRAMIDE 10 MG TABLET PO SCH ×2 (08:54→21:11)
[2023-07-24] MEDS: DOCUSATE SODIUM 100 MG CAP PO SCH ×2 (08:55→21:11)
[2023-07-24] MEDS: ENOXAPARIN SODIUM 40 MG/0.4 ML SYRINGE SQ SCH (08:55)
[2023-07-24] MEDS: 0.9%NACL 10ML VIAL IV SCH ×2 (08:58→21:00)
[2023-07-24] MEDS: OCTREOTIDE ACETATE 100 MCG/ML AMP IVP SCH ×3 (10:47→21:00)
[2023-07-24] MEDS: POTASSIUM CHLORIDE 10MEQ/100ML 100 ML IV PRN (10:48)
[2023-07-24] MEDS: FLUCONAZOLE 200 MG/NS 100 ML IV SCH (14:18)
[2023-07-24] MEDS ORDERED: FAT EMULSIONS 20% 250ML 250 ML IV ONE (20:30)
[2023-07-24] MEDS ORDERED: M.V.I. IV [ADULT] 10 ML in CLINIMIX-E 5%AA /D15%W 2000ML 2,000 ML IV ONE (20:30)
[2023-07-25] VITALS (17 sets, daily range): BP systolic 91–108; BP diastolic 51–67; PULSE 50–60; RESP 16–18; O2SAT 99–100
[2023-07-25] MEDS: SIMETHICONE 80 MG TAB.CHEW PO SCH ×5 (02:00→23:26)
[2023-07-25] MEDS: HYDROCODONE/ACETAMINOPHEN 5/325 MG TAB PO PRN ×3 (02:00→16:05)
[2023-07-25] MEDS: ZOSYN 3.375GM +NS 50ML IVPB SCH ×3 (05:18→19:38)
[2023-07-25] MEDS: DOCUSATE SODIUM 100 MG CAP PO SCH ×2 (09:00→19:36)
[2023-07-25] MEDS: ALPRAZOLAM 0.25 MG TABLET PO SCH ×2 (09:36→19:37)
[2023-07-25] MEDS: 0.9%NACL 10ML VIAL IV SCH ×2 (09:36→19:38)
[2023-07-25] MEDS: FAMOTIDINE 20MG VIAL IV SCH ×2 (09:37→19:37)
[2023-07-25] MEDS: GABAPENTIN 100 MG CAPSULE PO SCH ×3 (09:37→19:37)
[2023-07-25] MEDS: METOCLOPRAMIDE 10 MG TABLET PO SCH ×2 (09:37→19:37)
[2023-07-25] MEDS: ENOXAPARIN SODIUM 40 MG/0.4 ML SYRINGE SQ SCH (09:39)
[2023-07-25] MEDS: OCTREOTIDE ACETATE 100 MCG/ML AMP IVP SCH ×4 (09:48→19:37)
[2023-07-25] MEDS ORDERED: IOHEXOL-350 50ML VIAL IV ONE (14:28)
[2023-07-25] MEDS ORDERED: LIDOCAINE HCL 400MG/20ML VIAL ONE (14:28)
[2023-07-25] MEDS: FLUCONAZOLE 200 MG/NS 100 ML IV SCH (15:53)
[2023-07-25] MEDS ORDERED: M.V.I. IV [ADULT] 10 ML in CLINIMIX-E 5%AA /D15%W 2000ML 2,000 ML IV ONE (19:00)
[2023-07-26] VITALS (7 sets, daily range): BP systolic 94–116; BP diastolic 52–65; PULSE 54–57; RESP 16–18; O2SAT 99
[2023-07-26] MEDS: ZOSYN 3.375GM +NS 50ML IVPB SCH ×3 (02:52→22:05)
[2023-07-26] MEDS: HYDROCODONE/ACETAMINOPHEN 5/325 MG TAB PO PRN ×2 (02:53→13:19)
[2023-07-26] MEDS: SIMETHICONE 80 MG TAB.CHEW PO SCH ×3 (05:17→18:42)
[2023-07-26] MEDS: 0.9%NACL 10ML VIAL IV SCH ×2 (07:55→21:00)
[2023-07-26] MEDS: ALPRAZOLAM 0.25 MG TABLET PO SCH ×2 (09:00→22:07)
[2023-07-26] MEDS: DOCUSATE SODIUM 100 MG CAP PO SCH ×2 (09:00→21:00)
[2023-07-26] MEDS: GABAPENTIN 100 MG CAPSULE PO SCH ×3 (09:00→21:00)
[2023-07-26] MEDS: OCTREOTIDE ACETATE 100 MCG/ML AMP IVP SCH ×3 (09:00→21:00)
[2023-07-26] MEDS: ENOXAPARIN SODIUM 40 MG/0.4 ML SYRINGE SQ SCH (09:29)
[2023-07-26] MEDS: METOCLOPRAMIDE 10 MG TABLET PO SCH ×2 (09:30→22:08)
[2023-07-26] MEDS: FAMOTIDINE 20MG VIAL IV SCH ×2 (09:30→22:07)
[2023-07-26] MEDS: KCL 20 MEQ ERTAB PO PRN ×2 (13:20→19:10)
[2023-07-26] MEDS: FLUCONAZOLE 200 MG/NS 100 ML IV SCH (15:28)
[2023-07-26] MEDS ORDERED: M.V.I. IV [ADULT] 10 ML in CLINIMIX-E 5%AA /D15%W 2000ML 2,000 ML IV ONE (20:30)
[2023-07-26] MEDS ORDERED: FAT EMULSIONS 20% 250ML 250 ML IV ONE (21:00)
[2023-07-26] MEDS: ACETAMINOPHEN WITH CODEINE 1 TAB TAB PO PRN (23:02)
[2023-07-27] VITALS (9 sets, daily range): BP systolic 102–117; BP diastolic 59–70; PULSE 45–60; RESP 18–20; O2SAT 98–99
[2023-07-27] MEDS ORDERED: HYDROCODONE/ACETAMINOPHEN 5/325 MG TAB ONE (03:33)
[2023-07-27] MEDS: ZOSYN 3.375GM +NS 50ML IVPB SCH ×2 (04:54→12:31)
[2023-07-27] MEDS: HYDROCODONE/ACETAMINOPHEN 5/325 MG TAB PO PRN ×3 (04:55→22:22)
[2023-07-27] MEDS: SIMETHICONE 80 MG TAB.CHEW PO SCH ×2 (06:00)
[2023-07-27] MEDS ORDERED: DOCUSATE SODIUM 100 MG CAP PO PRN (08:30)
[2023-07-27] MEDS ORDERED: SIMETHICONE 80 MG TAB.CHEW PO PRN (08:30)
[2023-07-27 08:32] LABS: BASOPHILS # (AUTO) 0.02 K/uL (0.00-0.20); BASOPHILS % (AUTO) 0.3 % (0.0-5.0); EOSINOPHILS # (AUTO) 0.25 K/uL (0.00-0.70); EOSINOPHILS % (AUTO) 3.8 % (0.0-8.0); HEMATOCRIT 38.2 % (42-54); IMMATURE GRANULOCYTE ABSOLUTE 0.02 K/uL (0-1); LYMPHOCYTES # (AUTO) 2.8 K/uL (1.0-4.8); LYMPHOCYTES % (AUTO) 42.2 % (21.0-51.0); MEAN CORPUSCULAR HEMOGLOBIN 29.4 pg (27.0-33.0); MEAN CORPUSCULAR HGB CONC 31.4 g/dL (32.0-36.0); MEAN CORPUSCULAR VOLUME 93.6 fL (79-99); MONOCYTES # (AUTO) 0.3 K/uL (0.1-1.0); MONOCYTES % (AUTO) 5.2 % (3.0-13.0); NEUTROPHILS # (AUTO) 3.1 K/uL (1.8-7.7); NEUTROPHILS % (AUTO) 48.2 % (40.0-77.0); PLATELET COUNT (AUTO) 331 K/uL (130-400); RED BLOOD CELL COUNT(AUTO) 4.08 MIL/uL (4.50-6.20); RED CELL DISTRIBUTION WIDTH 14.3 % (11.0-15.5); WHITE BLOOD COUNT (AUTO) 6.5 K/uL (4.8-10.8)
[2023-07-27 08:58] LABS: MAGNESIUM 2.2 mg/dL (1.80-2.40); POTASSIUM 4.2 mmol/L (3.5-5.1)
[2023-07-27] MEDS: ALPRAZOLAM 0.25 MG TABLET PO SCH ×2 (09:00→21:00)
[2023-07-27] MEDS: METOCLOPRAMIDE 10 MG TABLET PO SCH ×2 (10:01→20:18)
[2023-07-27] MEDS: OCTREOTIDE ACETATE 100 MCG/ML AMP IVP SCH ×3 (10:01→20:19)
[2023-07-27] MEDS: FAMOTIDINE 20MG VIAL IV SCH ×2 (10:01→20:17)
[2023-07-27] MEDS: ENOXAPARIN SODIUM 40 MG/0.4 ML SYRINGE SQ SCH (10:01)
[2023-07-27] MEDS: 0.9%NACL 10ML VIAL IV SCH ×2 (10:03→20:18)
[2023-07-27] MEDS: FLUCONAZOLE 200 MG/NS 100 ML IV SCH (14:41)
[2023-07-27] MEDS ORDERED: M.V.I. IV [ADULT] 10 ML in CLINIMIX-E 5%AA /D15%W 2000ML 2,000 ML IV SCH (17:00)
[2023-07-28 04:00] VITALS: BP 94/66; PULSE 55; RESP 18
[2023-07-28] MEDS: ALPRAZOLAM 0.25 MG TABLET PO SCH ×2 (06:39→20:37)
[2023-07-28 08:00] VITALS: BP 100/62; PULSE 53; RESP 19; O2SAT 99
[2023-07-28] MEDS: 0.9%NACL 10ML VIAL IV SCH ×2 (09:00→20:23)
[2023-07-28] MEDS: ENOXAPARIN SODIUM 40 MG/0.4 ML SYRINGE SQ SCH (09:50)
[2023-07-28] MEDS: FAMOTIDINE 20MG VIAL IV SCH ×2 (09:50→20:37)
[2023-07-28] MEDS: METOCLOPRAMIDE 10 MG TABLET PO SCH ×2 (09:50→20:37)
[2023-07-28 12:00] VITALS: BP 124/67; PULSE 66; RESP 19
[2023-07-28 12:42] LABS: ABG BASE EXCESS -1.9 mmol/L (-2.0-3.0); ABG HCO3 22.1 mmol/L (21.0-28.0); ABG OXYGEN SATURATION 97.2 % (95.0-99.0); ABG PCO2 36 mmHg (35-48); ABG PH 7.411 (7.35-7.450); PO2, ARTERIAL BG 92.7 mmHg (83.0-108.0); VENT MODE, BG RA (ROOM AIR)
[2023-07-28] MEDS: FLUCONAZOLE 200 MG/NS 100 ML IV SCH (14:01)
[2023-07-28] MEDS: ZOSYN 3.375GM +NS 50ML IVPB SCH ×2 (15:37→20:23)
[2023-07-28 16:00] VITALS: BP 113/68; PULSE 78; RESP 19
[2023-07-28] MEDS ORDERED: M.V.I. IV [ADULT] 10 ML in CLINIMIX-E 5%AA /D15%W 2000ML 2,000 ML IV ONE (19:35)
[2023-07-28 20:00] VITALS: BP 114/63; PULSE 69; RESP 18
[2023-07-28] MEDS: ACETAMINOPHEN WITH CODEINE 1 TAB TAB PO PRN (23:03)
[2023-07-28] MEDS: HYDROCODONE/ACETAMINOPHEN 5/325 MG TAB PO PRN (23:08)
[2023-07-29] VITALS (8 sets, daily range): BP systolic 94–111; BP diastolic 54–66; PULSE 46–65; RESP 18–19; O2SAT 93
[2023-07-29] MEDS ORDERED: HYDROMORPHONE 0.5 MG SYG (0.5MG/0.5ML) IVP ONE (01:30)
[2023-07-29] MEDS: ZOSYN 3.375GM +NS 50ML IVPB SCH ×3 (05:42→22:41)
[2023-07-29] MEDS: FAMOTIDINE 20MG VIAL IV SCH ×2 (09:14→21:23)
[2023-07-29] MEDS: HYDROCODONE/ACETAMINOPHEN 5/325 MG TAB PO PRN ×2 (09:14→21:23)
[2023-07-29] MEDS: 0.9%NACL 10ML VIAL IV SCH ×2 (09:14→21:22)
[2023-07-29] MEDS: METOCLOPRAMIDE 10 MG TABLET PO SCH ×2 (09:15→21:23)
[2023-07-29] MEDS: ENOXAPARIN SODIUM 40 MG/0.4 ML SYRINGE SQ SCH (09:15)
[2023-07-29] MEDS: ALPRAZOLAM 0.25 MG TABLET PO SCH ×2 (09:15→21:23)
[2023-07-29] MEDS: FLUCONAZOLE 200 MG/NS 100 ML IV SCH (13:27)
[2023-07-29] MEDS: ACETAMINOPHEN WITH CODEINE 1 TAB TAB PO PRN (13:27)
[2023-07-29] MEDS ORDERED: M.V.I. IV [ADULT] 10 ML in CLINIMIX-E 5%AA /D15%W 2000ML 2,000 ML IV ONE (19:30)
[2023-07-30] VITALS (7 sets, daily range): BP systolic 91–112; BP diastolic 54–72; PULSE 54–61; RESP 18–19; O2SAT 98–100
[2023-07-30] MEDS: ACETAMINOPHEN WITH CODEINE 1 TAB TAB PO PRN (02:25)
[2023-07-30] MEDS: ZOSYN 3.375GM +NS 50ML IVPB SCH ×3 (05:45→22:00)
[2023-07-30] MEDS: HYDROCODONE/ACETAMINOPHEN 5/325 MG TAB PO PRN ×3 (06:34→21:56)
[2023-07-30] MEDS: 0.9%NACL 10ML VIAL IV SCH ×2 (09:00→21:55)
[2023-07-30] MEDS: ENOXAPARIN SODIUM 40 MG/0.4 ML SYRINGE SQ SCH (09:00)
[2023-07-30] MEDS: METOCLOPRAMIDE 10 MG TABLET PO SCH ×2 (09:00→21:55)
[2023-07-30] MEDS: ALPRAZOLAM 0.25 MG TABLET PO SCH ×2 (09:00→21:55)
[2023-07-30] MEDS: FAMOTIDINE 20MG VIAL IV SCH ×2 (09:00→21:56)
[2023-07-30] MEDS: FLUCONAZOLE 200 MG/NS 100 ML IV SCH (13:33)
[2023-07-30] MEDS: FAT EMULSIONS 20% 250ML 250 ML IV SCH (18:49)
[2023-07-30] MEDS ORDERED: M.V.I. IV [ADULT] 10 ML in CLINIMIX-E 5%AA /D15%W 2000ML 2,000 ML IV ONE (20:00)
[2023-07-31] VITALS (15 sets, daily range): BP systolic 94–123; BP diastolic 54–78; PULSE 55–98; RESP 18; O2SAT 98
[2023-07-31 05:41] LABS: BASOPHILS # (AUTO) 0.01 K/uL (0.00-0.20); BASOPHILS % (AUTO) 0.2 % (0.0-5.0); EOSINOPHILS # (AUTO) 0.22 K/uL (0.00-0.70); EOSINOPHILS % (AUTO) 4.2 % (0.0-8.0); HEMATOCRIT 35.6 % (42-54); IMMATURE GRANULOCYTE ABSOLUTE 0.02 K/uL (0-1); LYMPHOCYTES # (AUTO) 2.7 K/uL (1.0-4.8); LYMPHOCYTES % (AUTO) 51.3 % (21.0-51.0); MEAN CORPUSCULAR HEMOGLOBIN 29.2 pg (27.0-33.0); MONOCYTES # (AUTO) 0.4 K/uL (0.1-1.0); MONOCYTES % (AUTO) 7.2 % (3.0-13.0); NEUTROPHILS % (AUTO) 36.7 % (40.0-77.0); PLATELET COUNT (AUTO) 266 K/uL (130-400); RED BLOOD CELL COUNT(AUTO) 3.91 MIL/uL (4.50-6.20); RED CELL DISTRIBUTION WIDTH 14.3 % (11.0-15.5); WHITE BLOOD COUNT (AUTO) 5.3 K/uL (4.8-10.8)
[2023-07-31] MEDS: ZOSYN 3.375GM +NS 50ML IVPB SCH ×3 (05:55→20:20)
[2023-07-31 06:05] LABS: ALBUMIN 3.4 g/dL (3.5-5.0); BILIRUBIN,TOTAL 0.3 mg/dL (0.2-1.0); CREATININE 0.9 mg/dL (0.5-1.5); MAGNESIUM 2.1 mg/dL (1.80-2.40); POTASSIUM 3.6 mmol/L (3.5-5.1); TOTAL PROTEIN, SERUM 7.4 g/dL (6.0-8.3)
[2023-07-31] MEDS ORDERED: IOHEXOL-350 50ML VIAL IV ONE (07:17)
[2023-07-31] MEDS ORDERED: LIDOCAINE HCL 400MG/20ML VIAL ONE (07:17)
[2023-07-31] MEDS: METOCLOPRAMIDE 10 MG TABLET PO SCH ×2 (09:00→21:00)
[2023-07-31] MEDS: ALPRAZOLAM 0.25 MG TABLET PO SCH ×2 (09:00→21:00)
[2023-07-31] MEDS: FAT EMULSIONS 20% 250ML 250 ML IV SCH (10:00)
[2023-07-31] MEDS: FAMOTIDINE 20MG VIAL IV SCH ×2 (10:42→20:19)
[2023-07-31] MEDS: ENOXAPARIN SODIUM 40 MG/0.4 ML SYRINGE SQ SCH (10:42)
[2023-07-31] MEDS: 0.9%NACL 10ML VIAL IV SCH ×2 (10:44→21:56)
[2023-07-31] MEDS ORDERED: KETOROLAC 15MG/ML VIAL (15MG/ML) IV ONE (13:30)
[2023-07-31] MEDS: FLUCONAZOLE 200 MG/NS 100 ML IV SCH (14:37)
[2023-07-31] MEDS ORDERED: M.V.I. IV [ADULT] 10 ML in CLINIMIX-E 5%AA /D15%W 2000ML 2,000 ML IV ONE (21:00)
[2023-07-31] MEDS ORDERED: KETOROLAC 15MG/ML VIAL (15MG/ML) ONE (22:08)
[2023-07-31] MEDS: HYDROCODONE/ACETAMINOPHEN 5/325 MG TAB PO PRN (22:12)
[2023-08-01] VITALS: BP 107/72; PULSE 63; RESP 18
[2023-08-01] MEDS: HYDROCODONE/ACETAMINOPHEN 5/325 MG TAB PO PRN ×3 (03:42→21:58)
[2023-08-01 04:00] VITALS: BP 103/63; PULSE 62; RESP 18
[2023-08-01] MEDS: ZOSYN 3.375GM +NS 50ML IVPB SCH ×3 (06:31→21:58)
[2023-08-01 08:00] VITALS: BP 109/71; PULSE 62; RESP 16
[2023-08-01] MEDS: ALPRAZOLAM 0.25 MG TABLET PO SCH ×2 (09:00→20:37)
[2023-08-01] MEDS: 0.9%NACL 10ML VIAL IV SCH ×2 (09:00→20:45)
[2023-08-01] MEDS: METOCLOPRAMIDE 10 MG TABLET PO SCH ×2 (09:00→20:46)
[2023-08-01] MEDS: ENOXAPARIN SODIUM 40 MG/0.4 ML SYRINGE SQ SCH (11:18)
[2023-08-01] MEDS: FAMOTIDINE 20MG VIAL IV SCH ×2 (11:19→20:37)
[2023-08-01 12:00] VITALS: BP 104/68; PULSE 70; RESP 16
[2023-08-01] MEDS: FLUCONAZOLE 200 MG/NS 100 ML IV SCH (14:26)
[2023-08-01 16:00] VITALS: BP 109/62; PULSE 57; RESP 16
[2023-08-01 20:00] VITALS: BP 115/75; PULSE 63; RESP 20; O2SAT 100
[2023-08-01] MEDS ORDERED: M.V.I. IV [ADULT] 10 ML in CLINIMIX-E 5%AA /D15%W 2000ML 2,000 ML IV ONE ×3 (20:30→21:30)
[2023-08-02] VITALS (7 sets, daily range): BP systolic 99–110; BP diastolic 59–72; PULSE 54–73; RESP 16–20; O2SAT 97–100
[2023-08-02 04:08] LABS: BASOPHILS # (AUTO) 0.01 K/uL (0.00-0.20); BASOPHILS % (AUTO) 0.2 % (0.0-5.0); EOSINOPHILS # (AUTO) 0.21 K/uL (0.00-0.70); EOSINOPHILS % (AUTO) 3.3 % (0.0-8.0); HEMATOCRIT 34.7 % (42-54); IMMATURE GRANULOCYTE ABSOLUTE 0.01 K/uL (0-1); LYMPHOCYTES # (AUTO) 2.7 K/uL (1.0-4.8); LYMPHOCYTES % (AUTO) 42.2 % (21.0-51.0); MEAN CORPUSCULAR HEMOGLOBIN 29.1 pg (27.0-33.0); MEAN CORPUSCULAR VOLUME 90.8 fL (79-99); MONOCYTES # (AUTO) 0.4 K/uL (0.1-1.0); NEUTROPHILS % (AUTO) 47.1 % (40.0-77.0); PLATELET COUNT (AUTO) 251 K/uL (130-400); RED BLOOD CELL COUNT(AUTO) 3.82 MIL/uL (4.50-6.20); RED CELL DISTRIBUTION WIDTH 14.3 % (11.0-15.5); WHITE BLOOD COUNT (AUTO) 6.3 K/uL (4.8-10.8)
[2023-08-02] MEDS: HYDROCODONE/ACETAMINOPHEN 5/325 MG TAB PO PRN ×2 (04:08→13:39)
[2023-08-02 04:37] LABS: ALBUMIN 3.2 g/dL (3.5-5.0); BILIRUBIN,TOTAL 0.3 mg/dL (0.2-1.0); POTASSIUM 3.7 mmol/L (3.5-5.1); TOTAL PROTEIN, SERUM 7.3 g/dL (6.0-8.3)
[2023-08-02] MEDS: ZOSYN 3.375GM +NS 50ML IVPB SCH ×3 (05:34→21:51)
[2023-08-02] MEDS: 0.9%NACL 10ML VIAL IV SCH ×2 (09:00→21:31)
[2023-08-02] MEDS: FAMOTIDINE 20MG VIAL IV SCH ×2 (09:13→21:31)
[2023-08-02] MEDS: ALPRAZOLAM 0.25 MG TABLET PO SCH ×2 (09:13→21:31)
[2023-08-02] MEDS: METOCLOPRAMIDE 10 MG TABLET PO SCH ×2 (09:13→21:31)
[2023-08-02] MEDS: ENOXAPARIN SODIUM 40 MG/0.4 ML SYRINGE SQ SCH (09:16)
[2023-08-02] MEDS: FLUCONAZOLE 200 MG/NS 100 ML IV SCH (13:46)
[2023-08-02] MEDS ORDERED: SIMETHICONE 80 MG TAB.CHEW PO PRN (17:00)
[2023-08-02] MEDS ORDERED: ONDANSETRON 4MG INJ IVP PRN (17:00)
[2023-08-02] MEDS ORDERED: M.V.I. IV [ADULT] 10 ML in CLINIMIX-E 5%AA /D15%W 2000ML 2,000 ML IV ONE ×2 (17:30→23:30)
[2023-08-03] VITALS (8 sets, daily range): BP systolic 94–112; BP diastolic 54–71; PULSE 58–69; RESP 16–18; O2SAT 98–99
[2023-08-03] MEDS ORDERED: FAT EMULSIONS 20% 250ML 250 ML IV ONE
[2023-08-03] MEDS: HYDROCODONE/ACETAMINOPHEN 5/325 MG TAB PO PRN ×3 (02:12→22:55)
[2023-08-03] MEDS: ZOSYN 3.375GM +NS 50ML IVPB SCH ×3 (05:17→22:09)
[2023-08-03] MEDS: FAMOTIDINE 20MG VIAL IV SCH ×2 (08:48→20:40)
[2023-08-03] MEDS: METOCLOPRAMIDE 10 MG TABLET PO SCH ×2 (08:48→20:54)
[2023-08-03] MEDS: 0.9%NACL 10ML VIAL IV SCH ×2 (08:58→20:40)
[2023-08-03] MEDS: FLUCONAZOLE 200 MG/NS 100 ML IV SCH (14:15)
[2023-08-03] MEDS: ALPRAZOLAM 0.25 MG TABLET PO SCH (20:40)
[2023-08-04] VITALS (9 sets, daily range): BP systolic 95–116; BP diastolic 55–75; PULSE 55–99; RESP 17–20; O2SAT 99–100
[2023-08-04 04:14] LABS: BASOPHILS # (AUTO) 0.02 K/uL (0.00-0.20); BASOPHILS % (AUTO) 0.4 % (0.0-5.0); EOSINOPHILS # (AUTO) 0.19 K/uL (0.00-0.70); EOSINOPHILS % (AUTO) 3.4 % (0.0-8.0); HEMATOCRIT 34.3 % (42-54); IMMATURE GRANULOCYTE ABSOLUTE 0.01 K/uL (0-1); LYMPHOCYTES # (AUTO) 2.9 K/uL (1.0-4.8); MEAN CORPUSCULAR HEMOGLOBIN 29.3 pg (27.0-33.0); MEAN CORPUSCULAR HGB CONC 32.1 g/dL (32.0-36.0); MEAN CORPUSCULAR VOLUME 91.2 fL (79-99); MONOCYTES # (AUTO) 0.4 K/uL (0.1-1.0); MONOCYTES % (AUTO) 6.7 % (3.0-13.0); NEUTROPHILS # (AUTO) 2.2 K/uL (1.8-7.7); NEUTROPHILS % (AUTO) 38.3 % (40.0-77.0); PLATELET COUNT (AUTO) 233 K/uL (130-400); RED BLOOD CELL COUNT(AUTO) 3.76 MIL/uL (4.50-6.20); RED CELL DISTRIBUTION WIDTH 14.4 % (11.0-15.5); WHITE BLOOD COUNT (AUTO) 5.6 K/uL (4.8-10.8)
[2023-08-04 04:27] LABS: CREATININE 1.1 mg/dL (0.5-1.5); MAGNESIUM 1.9 mg/dL (1.80-2.40); POTASSIUM 4.2 mmol/L (3.5-5.1)
[2023-08-04] MEDS: ZOSYN 3.375GM +NS 50ML IVPB SCH ×3 (05:26→21:59)
[2023-08-04] MEDS ORDERED: IOHEXOL-350 75 ML VIAL IV ONE (07:11)
[2023-08-04] MEDS ORDERED: DIATR MEGLU/DIATRIZOATE SODIUM 30 ML BOTTLE ONE (07:11)
[2023-08-04] MEDS: FAMOTIDINE 20MG VIAL IV SCH ×2 (08:51→19:56)
[2023-08-04] MEDS: ALPRAZOLAM 0.25 MG TABLET PO SCH ×2 (08:51→19:56)
[2023-08-04] MEDS: 0.9%NACL 10ML VIAL IV SCH ×2 (08:53→19:56)
[2023-08-04] MEDS: FLUCONAZOLE 200 MG/NS 100 ML IV SCH (14:44)
[2023-08-04] MEDS: HYDROCODONE/ACETAMINOPHEN 5/325 MG TAB PO PRN ×2 (15:14→22:00)
[2023-08-04] MEDS: METOCLOPRAMIDE 10 MG TABLET PO SCH ×2 (15:14→19:56)
[2023-08-04] MEDS: ENOXAPARIN SODIUM 40 MG/0.4 ML SYRINGE SQ SCH (15:15)
[2023-08-05 04:30] VITALS: BP 115/74; PULSE 62; RESP 19
[2023-08-05] MEDS: ZOSYN 3.375GM +NS 50ML IVPB SCH ×3 (05:28→20:54)
[2023-08-05] MEDS: HYDROCODONE/ACETAMINOPHEN 5/325 MG TAB PO PRN ×3 (05:36→21:25)
[2023-08-05 08:00] VITALS: BP 102/42; PULSE 46; RESP 18; O2SAT 98
[2023-08-05] MEDS: METOCLOPRAMIDE 10 MG TABLET PO SCH ×2 (08:49→20:53)
[2023-08-05] MEDS: 0.9%NACL 10ML VIAL IV SCH ×2 (08:49→20:55)
[2023-08-05] MEDS: FAMOTIDINE 20MG VIAL IV SCH ×2 (08:49→20:53)
[2023-08-05] MEDS: ALPRAZOLAM 0.25 MG TABLET PO SCH ×2 (08:49→20:53)
[2023-08-05] MEDS: ENOXAPARIN SODIUM 40 MG/0.4 ML SYRINGE SQ SCH (08:50)
[2023-08-05 12:00] VITALS: BP 106/68; PULSE 58; RESP 18
[2023-08-05] MEDS: FLUCONAZOLE 200 MG/NS 100 ML IV SCH (13:45)
[2023-08-05 16:00] VITALS: BP 116/66; PULSE 54; RESP 18
[2023-08-05 20:00] VITALS: BP 101/62; PULSE 63; RESP 18; O2SAT 98
[2023-08-06] VITALS: BP 96/59; PULSE 51; RESP 16
[2023-08-06 04:00] VITALS: BP 94/53; PULSE 58; RESP 18
[2023-08-06 06:11] LABS: BASOPHILS # (AUTO) 0.03 K/uL (0.00-0.20); BASOPHILS % (AUTO) 0.6 % (0.0-5.0); EOSINOPHILS # (AUTO) 0.19 K/uL (0.00-0.70); EOSINOPHILS % (AUTO) 4.1 % (0.0-8.0); HEMATOCRIT 34.6 % (42-54); LYMPHOCYTES # (AUTO) 2.5 K/uL (1.0-4.8); LYMPHOCYTES % (AUTO) 54.3 % (21.0-51.0); MEAN CORPUSCULAR HEMOGLOBIN 28.8 pg (27.0-33.0); MEAN CORPUSCULAR HGB CONC 31.2 g/dL (32.0-36.0); MEAN CORPUSCULAR VOLUME 92.3 fL (79-99); MONOCYTES # (AUTO) 0.2 K/uL (0.1-1.0); MONOCYTES % (AUTO) 5.2 % (3.0-13.0); NEUTROPHILS # (AUTO) 1.7 K/uL (1.8-7.7); NEUTROPHILS % (AUTO) 35.8 % (40.0-77.0); PLATELET COUNT (AUTO) 241 K/uL (130-400); RED BLOOD CELL COUNT(AUTO) 3.75 MIL/uL (4.50-6.20); RED CELL DISTRIBUTION WIDTH 14.5 % (11.0-15.5); WHITE BLOOD COUNT (AUTO) 4.6 K/uL (4.8-10.8)
[2023-08-06] MEDS: ZOSYN 3.375GM +NS 50ML IVPB SCH ×3 (06:17→21:32)
[2023-08-06 06:32] LABS: BILIRUBIN,TOTAL 0.3 mg/dL (0.2-1.0); CREATININE 0.9 mg/dL (0.5-1.5); POTASSIUM 3.5 mmol/L (3.5-5.1); TOTAL PROTEIN, SERUM 6.8 g/dL (6.0-8.3)
[2023-08-06 08:00] VITALS: BP 97/68; PULSE 59; RESP 14; O2SAT 98
[2023-08-06] MEDS: ENOXAPARIN SODIUM 40 MG/0.4 ML SYRINGE SQ SCH (08:58)
[2023-08-06] MEDS: FAMOTIDINE 20MG VIAL IV SCH ×2 (08:58→21:25)
[2023-08-06] MEDS: METOCLOPRAMIDE 10 MG TABLET PO SCH ×2 (08:59→21:25)
[2023-08-06] MEDS: 0.9%NACL 10ML VIAL IV SCH (08:59)
[2023-08-06] MEDS: ALPRAZOLAM 0.25 MG TABLET PO SCH ×2 (08:59→21:25)
[2023-08-06 11:47] VITALS: BP 108/70; PULSE 60; RESP 16
[2023-08-06] MEDS: FLUCONAZOLE 200 MG/NS 100 ML IV SCH (14:19)
[2023-08-06 15:44] VITALS: BP 118/81; PULSE 60; RESP 14
[2023-08-06] MEDS: HYDROCODONE/ACETAMINOPHEN 5/325 MG TAB PO PRN ×2 (16:04→23:29)
[2023-08-06] MEDS ORDERED: DIATR MEGLU/DIATRIZOATE SODIUM 30 ML BOTTLE ONE (18:19)
[2023-08-06 20:00] VITALS: BP 119/70; PULSE 58; RESP 18; O2SAT 100
[2023-08-07] VITALS (8 sets, daily range): BP systolic 102–119; BP diastolic 62–80; PULSE 47–60; RESP 18–20; O2SAT 96–99
[2023-08-07] MEDS: ZOSYN 3.375GM +NS 50ML IVPB SCH ×3 (05:22→21:56)
[2023-08-07] MEDS: FAMOTIDINE 20MG VIAL IV SCH ×2 (08:35→20:37)
[2023-08-07] MEDS: ENOXAPARIN SODIUM 40 MG/0.4 ML SYRINGE SQ SCH (08:35)
[2023-08-07] MEDS ORDERED: DIATR MEGLU/DIATRIZOATE SODIUM 30 ML BOTTLE ONE (08:53)
[2023-08-07] MEDS: METOCLOPRAMIDE 10 MG TABLET PO SCH ×2 (09:00→20:37)
[2023-08-07] MEDS ORDERED: IOHEXOL 350 MG/ML 100ML INFUS..BTL IV ONE (12:26)
[2023-08-07] MEDS ORDERED: POTASSIUM CHLORIDE 20MEQ/100ML 100 ML IV PRN (13:00)
[2023-08-07] MEDS: FLUCONAZOLE 200 MG/NS 100 ML IV SCH (14:49)
[2023-08-07] MEDS: ALPRAZOLAM 0.25 MG TABLET PO SCH ×2 (14:49→20:37)
[2023-08-07] MEDS: KCL 20 MEQ ERTAB PO PRN ×2 (15:06→17:03)
[2023-08-07] MEDS: HYDROCODONE/ACETAMINOPHEN 5/325 MG TAB PO PRN ×2 (15:15→21:57)
[2023-08-08 03:58] VITALS: BP 99/54; PULSE 50; RESP 16
[2023-08-08] MEDS: ZOSYN 3.375GM +NS 50ML IVPB SCH ×3 (05:10→21:26)
[2023-08-08 06:16] LABS: BASOPHILS # (AUTO) 0.01 K/uL (0.00-0.20); BASOPHILS % (AUTO) 0.2 % (0.0-5.0); EOSINOPHILS # (AUTO) 0.18 K/uL (0.00-0.70); EOSINOPHILS % (AUTO) 4.2 % (0.0-8.0); HEMATOCRIT 34.5 % (42-54); IMMATURE GRANULOCYTE ABSOLUTE 0.01 K/uL (0-1); LYMPHOCYTES # (AUTO) 2.4 K/uL (1.0-4.8); LYMPHOCYTES % (AUTO) 55.9 % (21.0-51.0); MEAN CORPUSCULAR HEMOGLOBIN 29.3 pg (27.0-33.0); MEAN CORPUSCULAR HGB CONC 32.2 g/dL (32.0-36.0); MONOCYTES # (AUTO) 0.3 K/uL (0.1-1.0); MONOCYTES % (AUTO) 5.8 % (3.0-13.0); NEUTROPHILS # (AUTO) 1.5 K/uL (1.8-7.7); NEUTROPHILS % (AUTO) 33.7 % (40.0-77.0); PLATELET COUNT (AUTO) 237 K/uL (130-400); RED BLOOD CELL COUNT(AUTO) 3.79 MIL/uL (4.50-6.20); RED CELL DISTRIBUTION WIDTH 14.4 % (11.0-15.5); WHITE BLOOD COUNT (AUTO) 4.3 K/uL (4.8-10.8)
[2023-08-08 06:28] LABS: ALBUMIN 3.2 g/dL (3.5-5.0); BILIRUBIN,TOTAL 0.3 mg/dL (0.2-1.0); CREATININE 0.9 mg/dL (0.5-1.5); POTASSIUM 3.6 mmol/L (3.5-5.1); TOTAL PROTEIN, SERUM 6.9 g/dL (6.0-8.3)
[2023-08-08] MEDS: KCL 20 MEQ ERTAB PO PRN (06:44)
[2023-08-08] MEDS: HYDROCODONE/ACETAMINOPHEN 5/325 MG TAB PO PRN ×3 (06:44→21:27)
[2023-08-08] MEDS: POTASSIUM CHLORIDE 10% ELIXIR 20 MEQ/15 ML UDCUP PO PRN ×2 (06:48→12:36)
[2023-08-08 08:00] VITALS: BP 107/70; PULSE 54; RESP 18; O2SAT 98
[2023-08-08] MEDS: METOCLOPRAMIDE 10 MG TABLET PO SCH ×2 (09:10→20:21)
[2023-08-08] MEDS: FAMOTIDINE 20MG VIAL IV SCH ×2 (09:10→20:20)
[2023-08-08] MEDS: ALPRAZOLAM 0.25 MG TABLET PO SCH ×2 (09:10→20:21)
[2023-08-08] MEDS: ENOXAPARIN SODIUM 40 MG/0.4 ML SYRINGE SQ SCH (09:11)
[2023-08-08 12:00] VITALS: BP 103/61; PULSE 65; RESP 18
[2023-08-08] MEDS: FLUCONAZOLE 200 MG/NS 100 ML IV SCH (14:22)
[2023-08-08 16:00] VITALS: BP 108/60; PULSE 57; RESP 18
[2023-08-08 19:25] VITALS: BP 119/73; PULSE 51; RESP 18
[2023-08-08 20:25] VITALS: O2SAT 99
[2023-08-09] VITALS (8 sets, daily range): BP systolic 94–128; BP diastolic 63–73; PULSE 42–74; RESP 16–19; O2SAT 98
[2023-08-09 04:29] LABS: BASOPHILS # (AUTO) 0.01 K/uL (0.00-0.20); BASOPHILS % (AUTO) 0.2 % (0.0-5.0); EOSINOPHILS # (AUTO) 0.15 K/uL (0.00-0.70); EOSINOPHILS % (AUTO) 3.1 % (0.0-8.0); HEMATOCRIT 33.7 % (42-54); LYMPHOCYTES # (AUTO) 2.8 K/uL (1.0-4.8); MEAN CORPUSCULAR HGB CONC 31.5 g/dL (32.0-36.0); MEAN CORPUSCULAR VOLUME 92.3 fL (79-99); MONOCYTES # (AUTO) 0.3 K/uL (0.1-1.0); MONOCYTES % (AUTO) 6.6 % (3.0-13.0); NEUTROPHILS # (AUTO) 1.6 K/uL (1.8-7.7); NEUTROPHILS % (AUTO) 33.1 % (40.0-77.0); PLATELET COUNT (AUTO) 225 K/uL (130-400); RED BLOOD CELL COUNT(AUTO) 3.65 MIL/uL (4.50-6.20); RED CELL DISTRIBUTION WIDTH 14.6 % (11.0-15.5); WHITE BLOOD COUNT (AUTO) 4.9 K/uL (4.8-10.8)
[2023-08-09 04:45] LABS: CREATININE 0.8 mg/dL (0.5-1.5); MAGNESIUM 1.9 mg/dL (1.80-2.40); POTASSIUM 3.5 mmol/L (3.5-5.1)
[2023-08-09] MEDS: ZOSYN 3.375GM +NS 50ML IVPB SCH ×3 (05:14→21:55)
[2023-08-09] MEDS: POTASSIUM CHLORIDE 10% ELIXIR 20 MEQ/15 ML UDCUP PO PRN ×2 (05:15→09:30)
[2023-08-09] MEDS ORDERED: ALTEPLASE 2MG VIAL 2 MG/VIAL VIAL IVCATH ONE (08:30)
[2023-08-09] MEDS: FAMOTIDINE 20MG VIAL IV SCH ×2 (09:30→19:48)
[2023-08-09] MEDS: ALPRAZOLAM 0.25 MG TABLET PO SCH ×2 (09:30→19:48)
[2023-08-09] MEDS: HYDROCODONE/ACETAMINOPHEN 5/325 MG TAB PO PRN ×2 (09:30→18:56)
[2023-08-09] MEDS: ENOXAPARIN SODIUM 40 MG/0.4 ML SYRINGE SQ SCH (09:31)
[2023-08-09] MEDS: METOCLOPRAMIDE 10 MG TABLET PO SCH ×2 (09:31→19:48)
[2023-08-10] VITALS (7 sets, daily range): BP systolic 102–120; BP diastolic 52–71; PULSE 49–59; RESP 14–20; O2SAT 100
[2023-08-10] MEDS: ZOSYN 3.375GM +NS 50ML IVPB SCH ×3 (05:58→21:02)
[2023-08-10] MEDS: ENOXAPARIN SODIUM 40 MG/0.4 ML SYRINGE SQ SCH (09:00)
[2023-08-10] MEDS: METOCLOPRAMIDE 10 MG TABLET PO SCH ×2 (09:03→21:01)
[2023-08-10] MEDS: FAMOTIDINE 20MG VIAL IV SCH ×2 (09:03→21:02)
[2023-08-10] MEDS: HYDROCODONE/ACETAMINOPHEN 5/325 MG TAB PO PRN ×2 (09:04→16:15)
[2023-08-10] MEDS: ALPRAZOLAM 0.25 MG TABLET PO SCH ×2 (09:04→21:01)
[2023-08-11] MEDS: HYDROCODONE/ACETAMINOPHEN 5/325 MG TAB PO PRN ×2 (01:21→14:36)
[2023-08-11 04:00] VITALS: BP 120/71; PULSE 52; RESP 20
[2023-08-11] MEDS: ZOSYN 3.375GM +NS 50ML IVPB SCH ×3 (06:17→21:05)
[2023-08-11 07:54] VITALS: BP 109/63; PULSE 52; RESP 12
[2023-08-11] MEDS: ENOXAPARIN SODIUM 40 MG/0.4 ML SYRINGE SQ SCH (08:20)
[2023-08-11] MEDS: FAMOTIDINE 20MG VIAL IV SCH (08:25)
[2023-08-11] MEDS: METOCLOPRAMIDE 10 MG TABLET PO SCH ×2 (08:25→21:05)
[2023-08-11] MEDS: ALPRAZOLAM 0.25 MG TABLET PO SCH ×2 (08:25→21:05)
[2023-08-11 12:00] VITALS: BP 114/74; PULSE 65; RESP 14
[2023-08-11 16:00] VITALS: BP 127/69; PULSE 62; RESP 14
[2023-08-11 20:00] VITALS: BP 131/79; PULSE 56; RESP 18
[2023-08-11 21:05] VITALS: O2SAT 98
[2023-08-12] VITALS: BP 123/77; PULSE 62; RESP 18
[2023-08-12] MEDS ORDERED: HYDROCODONE/ACETAMINOPHEN 5/325 MG TAB PO ONE ×2 (02:00→16:00)
[2023-08-12 04:00] VITALS: BP 120/73; PULSE 53; RESP 18
[2023-08-12] MEDS: ZOSYN 3.375GM +NS 50ML IVPB SCH ×2 (06:05→13:11)
[2023-08-12 08:00] VITALS: BP 97/59; PULSE 60; RESP 18
[2023-08-12] MEDS ORDERED: KCL 20 MEQ ERTAB PO ONE (08:30)
[2023-08-12] MEDS: ENOXAPARIN SODIUM 40 MG/0.4 ML SYRINGE SQ SCH (08:46)
[2023-08-12] MEDS: ALPRAZOLAM 0.25 MG TABLET PO SCH (08:46)
[2023-08-12] MEDS: METOCLOPRAMIDE 10 MG TABLET PO SCH (08:46)
[2023-08-12] MEDS ORDERED: FLUCONAZOLE 200 MG/NS 100 ML 100 ML IV SCH (09:00)
[2023-08-12 11:38] VITALS: BP 103/54; PULSE 51; RESP 19
[2023-08-12 16:00] VITALS: BP 99/62; PULSE 70; RESP 18
== END 2023-08-12 18:00 | disposition home or self-care (01) | DRG 710 ==
LOC: EDH 14:39 → EDHIP 14:40 → 2BH 06-28 00:26 → 2DH 06-28 18:14 → 3DH 07-01 22:47
PROVIDERS: ADMIT Surgery; ATTEND Surgery
PROC: 0WJG0ZZ Inspection of Peritoneal Cavity, Open Approach (ICD-10-PCS; 2023-06-27)
PROC: 0D9670Z Drainage of Stomach with Drainage Device, Via Natural or Artificial Opening (ICD-10-PCS; 2023-06-27)
PROC: 02HV33Z Insertion of Infusion Device into Superior Vena Cava, Percutaneous Approach (ICD-10-PCS; 2023-07-06)
PROC: B548ZZA Ultrasonography of Superior Vena Cava, Guidance (ICD-10-PCS; 2023-07-06)
PROC: 0D9W30Z Drainage of Peritoneum with Drainage Device, Percutaneous Approach (ICD-10-PCS; 2023-07-08)
PROC: 0D9W30Z Drainage of Peritoneum with Drainage Device, Percutaneous Approach (ICD-10-PCS; 2023-07-25)
PROC: 0DPDX0Z Removal of Drainage Device from Lower Intestinal Tract, External Approach (ICD-10-PCS; principal; 2023-07-31)
PROC: BD13ZZZ Fluoroscopy of Small Bowel (ICD-10-PCS; 2023-07-31)
DX: A41.9 Sepsis, unspecified organism (principal); J96.91 Respiratory failure, unspecified with hypoxia; K63.1 Perforation of intestine (nontraumatic); K65.1 Peritoneal abscess; K63.2 Fistula of intestine; M62.82 Rhabdomyolysis; K56.7 Ileus, unspecified; E11.43 Type 2 diabetes mellitus with diabetic autonomic (poly)neuropathy; K31.84 Gastroparesis; R18.8 Other ascites; Y04.0XXA Assault by unarmed brawl or fight, initial encounter; E87.6 Hypokalemia; F14.10 Cocaine abuse, uncomplicated; D50.9 Iron deficiency anemia, unspecified; D75.839 Thrombocytosis, unspecified; E66.01 Morbid (severe) obesity due to excess calories; Z93.2 Ileostomy status; Z93.3 Colostomy status; Y93.89 Activity, other specified; Y92.89 Other specified places as the place of occurrence of the external cause; Y99.8 Other external cause status; Z82.49 Family history of ischemic heart disease and other diseases of the circulatory system; Z83.3 Family history of diabetes mellitus; Z90.49 Acquired absence of other specified parts of digestive tract; Z68.32 Body mass index [BMI] 32.0-32.9, adult
CPT/HCPCS: 36415; 36569; 36600; 49424; 70450; 71045; 71250; 71260; 72125; 74018; 74150; 74176; 74177; 74178; 75989; 76080; 76705; 80048; 80053; 80305; 81001; 82550; 82803; 82948; 83540; 83550; 83605; 83690; 83735; 83874; 84100; 84132; 84145; 84484; 85025; 85027; 85610; 85651; 85730; 86140; 87070; 87071; 87076; 87077; 87186; 87205; 93005; 96365; 97039; 99153; A4344; C1894; G0378; J0690; J1170; J1450; J1644; J1650; J1756; J1885; J2001; J2060; J2250; J2270; J2354; J2405; J2543; J2704; J2765; J2795; J2997; J3010; J3411; J3475; J3480; J3490; J7030; J7050; J7120; Q9963; Q9967; A4215; A4452; A4649; A4930; C1729; C1769; G8980-CI; G8983-CI

== ENCOUNTER 2023-08-14 13:37 | Emergency (ER) | payer MEDICAID, OTHER ==
[~2023-08-14] VITALS: Ht 177.8 cm; Wt 99.8 kg
[~2023-08-14 13:37] MED LIST changes: -TRAM100T40 PO
[2023-08-14 14:26] LABS: HEMATOCRIT 41.1 % (42-54); MEAN CORPUSCULAR HEMOGLOBIN 29.5 pg (27.0-33.0); MEAN CORPUSCULAR HGB CONC 32.6 g/dL (32.0-36.0); MEAN CORPUSCULAR VOLUME 90.5 fL (79-99); RED BLOOD CELL COUNT(AUTO) 4.54 MIL/uL (4.50-6.20); RED CELL DISTRIBUTION WIDTH 14.6 % (11.0-15.5); WHITE BLOOD COUNT (AUTO) 7.7 K/uL (4.8-10.8)
[2023-08-14 14:37] LABS: CREATININE 0.9 mg/dL (0.5-1.5); POTASSIUM 4.1 mmol/L (3.5-5.1)
[2023-08-14 14:42] LABS: BILIRUBIN,TOTAL 0.4 mg/dL (0.2-1.0); TOTAL PROTEIN, SERUM 8.2 g/dL (6.0-8.3)
[2023-08-14] MEDS ORDERED: ONDANSETRON 4MG INJ IVP ONE ×2 (16:00→18:00)
[2023-08-14] MEDS ORDERED: 0.9%NACL 1000ML 1,000 ML IV ONE ×2 (16:00→18:00)
[2023-08-14] MEDS ORDERED: KETOROLAC 15MG/ML VIAL (15MG/ML) IV ONE (16:00)
[2023-08-14] MEDS ORDERED: IOHEXOL-350 75 ML VIAL IV ONE (17:08)
[2023-08-14 17:48] LABS: APPEARANCE,URINE CLEAR (CLEAR); BILIRUBIN,URINE NEGATIVE (NEGATIVE); COLOR,URINE LIGHT-YELLOW (YELLOW); GLUCOSE, URINE (UA) NEGATIVE (NEGATIVE); KETONES,URINE NEGATIVE (NEGATIVE); LEUKOCYTE ESTERASE ,URINE NEGATIVE Leu/uL (NEGATIVE); NITRATE,URINE NEGATIVE (NEGATIVE); OCCULT BLOOD,URINE NEGATIVE (NEGATIVE); PH,URINE 5.5 (5.0-8.0); PROTEIN,URINE NEGATIVE (NEGATIVE); UROBILINOGEN,URINE 0.2 mg/dL (0.2-1.0)
[2023-08-14 17:49] LABS: ADD UA MICROSCOPIC YES
[2023-08-14 17:51] LABS: RBC,URINE 0-1 /HPF (0-1); WBC,URINE 0-1 /HPF (0-1)
[2023-08-14] MEDS ORDERED: MORPHINE 4 MG SYG IVP ONE (18:00)
[2023-08-14 18:22] VITALS: BP 127/81; PULSE 62; RESP 18; O2SAT 97
[2023-08-14] MEDS ORDERED: ONDA4TAB10 PO (18:57)
== END 2023-08-14 19:05 | disposition home or self-care (01) ==
LOC: EDH 13:37
DX: R10.9 Unspecified abdominal pain (principal); K57.92 Diverticulitis of intestine, part unspecified, without perforation or abscess without bleeding; Z79.899 Other long term (current) drug therapy; Z98.890 Other specified postprocedural states
CPT/HCPCS: 99285; 74177; 96374; 96375; 80053; 85027; 81001; 36415; J7030; J2405; J1885; Q9967

== ENCOUNTER 2023-08-17 21:04 | Emergency (ER) | payer MEDICAID, OTHER ==
[~2023-08-17] VITALS: Ht 177.8 cm; Wt 99.3 kg
[~2023-08-17 21:04] MED LIST changes: +ONDA4TAB10 PO
[2023-08-17 21:33] LABS: BASOPHILS # (AUTO) 0.01 K/uL (0.00-0.20); BASOPHILS % (AUTO) 0.1 % (0.0-5.0); EOSINOPHILS % (AUTO) 1.3 % (0.0-8.0); HEMATOCRIT 44.6 % (42-54); IMMATURE GRANULOCYTE ABSOLUTE 0.02 K/uL (0-1); LYMPHOCYTES % (AUTO) 50.5 % (21.0-51.0); MEAN CORPUSCULAR HEMOGLOBIN 29.4 pg (27.0-33.0); MEAN CORPUSCULAR HGB CONC 32.5 g/dL (32.0-36.0); MEAN CORPUSCULAR VOLUME 90.3 fL (79-99); MONOCYTES # (AUTO) 0.4 K/uL (0.1-1.0); MONOCYTES % (AUTO) 4.7 % (3.0-13.0); NEUTROPHILS # (AUTO) 3.4 K/uL (1.8-7.7); NEUTROPHILS % (AUTO) 43.1 % (40.0-77.0); PLATELET COUNT (AUTO) 328 K/uL (130-400); RED BLOOD CELL COUNT(AUTO) 4.94 MIL/uL (4.50-6.20); RED CELL DISTRIBUTION WIDTH 14.3 % (11.0-15.5); WHITE BLOOD COUNT (AUTO) 7.9 K/uL (4.8-10.8)
[2023-08-17 21:47] LABS: CREATININE 0.9 mg/dL (0.5-1.5); POTASSIUM 3.5 mmol/L (3.5-5.1)
[2023-08-17 21:52] LABS: ALBUMIN 4.3 g/dL (3.5-5.0); BILIRUBIN,TOTAL 0.5 mg/dL (0.2-1.0); TOTAL PROTEIN, SERUM 8.8 g/dL (6.0-8.3)
[2023-08-17] MEDS ORDERED: FAMOTIDINE 20MG VIAL IV ONE (22:00)
[2023-08-17] MEDS ORDERED: METOCLOPRAMIDE 10 MG/2 ML VIAL IVP ONE (22:00)
[2023-08-17] MEDS ORDERED: MORPHINE 4 MG SYG IVP ONE (22:00)
[2023-08-17] MEDS ORDERED: LACTATED RINGERS 1000ML 1,000 ML IV ONE (22:00)
[2023-08-17 22:42] LABS: APPEARANCE,URINE CLEAR (CLEAR); BILIRUBIN,URINE NEGATIVE (NEGATIVE); COLOR,URINE LIGHT-YELLOW (YELLOW); GLUCOSE, URINE (UA) NEGATIVE (NEGATIVE); KETONES,URINE NEGATIVE (NEGATIVE); LEUKOCYTE ESTERASE ,URINE NEGATIVE Leu/uL (NEGATIVE); NITRATE,URINE NEGATIVE (NEGATIVE); OCCULT BLOOD,URINE NEGATIVE (NEGATIVE); PH,URINE 5.5 (5.0-8.0); PROTEIN,URINE NEGATIVE (NEGATIVE); UROBILINOGEN,URINE 0.2 mg/dL (0.2-1.0)
[2023-08-17 22:48] LABS: ADD UA MICROSCOPIC NO
[2023-08-18] MEDS ORDERED: METO-296 PO (00:03)
[2023-08-18] MEDS ORDERED: POLY17PO4 PO (00:03)
[2023-08-18 00:17] VITALS: BP 126/76; PULSE 61; RESP 16; O2SAT 99
== END 2023-08-18 00:17 | disposition home or self-care (01) ==
LOC: EDH 21:04
DX: G89.29 Other chronic pain (principal); R10.9 Unspecified abdominal pain; M62.08 Separation of muscle (nontraumatic), other site; K57.92 Diverticulitis of intestine, part unspecified, without perforation or abscess without bleeding; Z79.899 Other long term (current) drug therapy; Z98.890 Other specified postprocedural states
CPT/HCPCS: 99285; 96374; 96375; 96361; 82550; 84484; 80053; 83690; 85025; 83605; 81003; 36415; 74018; 93005; J2270; J2765; S0028; J3490

== ENCOUNTER 2023-12-09 23:04 | Emergency (ER) | payer MEDICAID, OTHER ==
[~2023-12-09] VITALS: Ht 177.8 cm; Wt 108.9 kg
[~2023-12-09 23:04] MED LIST changes: +METO-296 PO; +ONDA-243 PO; -ONDA4TAB10 PO; +POLY17PO4 PO
[2023-12-09] MEDS: ZOSYN 3.375GM +NS 50ML IV ONE (23:30)
[2023-12-09] MEDS ORDERED: IOHEXOL 350 MG/ML 100ML INFUS..BTL IV ONE (23:33)
[2023-12-09 23:38] LABS: BASOPHILS # (AUTO) 0.04 K/uL (0.00-0.20); BASOPHILS % (AUTO) 0.3 % (0.0-5.0); EOSINOPHILS # (AUTO) 0.02 K/uL (0.00-0.70); EOSINOPHILS % (AUTO) 0.2 % (0.0-8.0); HEMATOCRIT 44.3 % (42-54); IMMATURE GRANULOCYTE ABSOLUTE 0.13 K/uL (0-1); LYMPHOCYTES # (AUTO) 2.7 K/uL (1.0-4.8); LYMPHOCYTES % (AUTO) 21.4 % (21.0-51.0); MEAN CORPUSCULAR HEMOGLOBIN 30.7 pg (27.0-33.0); MEAN CORPUSCULAR HGB CONC 34.3 g/dL (32.0-36.0); MEAN CORPUSCULAR VOLUME 89.5 fL (79-99); MONOCYTES # (AUTO) 0.5 K/uL (0.1-1.0); MONOCYTES % (AUTO) 3.7 % (3.0-13.0); NEUTROPHILS # (AUTO) 9.4 K/uL (1.8-7.7); NEUTROPHILS % (AUTO) 73.4 % (40.0-77.0); PLATELET COUNT (AUTO) 388 K/uL (130-400); RED BLOOD CELL COUNT(AUTO) 4.95 MIL/uL (4.50-6.20); RED CELL DISTRIBUTION WIDTH 12.8 % (11.0-15.5); WHITE BLOOD COUNT (AUTO) 12.8 K/uL (4.8-10.8)
[2023-12-09 23:48] LABS: CREATININE 1.1 mg/dL (0.5-1.5); POTASSIUM 3.3 mmol/L (3.5-5.1)
[2023-12-09 23:52] LABS: BILIRUBIN,TOTAL 1.2 mg/dL (0.2-1.0); TOTAL PROTEIN, SERUM 7.8 g/dL (6.0-8.3)
[2023-12-10] MEDS: KETOROLAC 30MG VIAL (30MG/ML) IVP ONE (00:47)
[2023-12-10] MEDS: DiphenhydrAMINE HCL 50 MG/ML VIAL IV ONE (01:25)
[2023-12-10] MEDS: ONDANSETRON 4MG INJ IVP ONE (01:25)
[2023-12-10] MEDS: TETANUS/DIPHTHERIA TOXOID [ADULT] 0.5 ML VIAL IM ONE (01:29)
[2023-12-10] MEDS: LIDOCAINE 1%-EPI 1:100,000 20 ML VIAL ONE (01:59)
[2023-12-10] MEDS: LIDOCAINE 1%-EPI 1:100,000 20 ML VIAL IJ SCH ×2 (02:00)
[2023-12-10] MEDS ORDERED: AMOX-427 PO (02:11)
[2023-12-10 02:30] VITALS: BP 118/60; PULSE 99; RESP 20; O2SAT 98
== END 2023-12-10 02:30 ==
LOC: EDH 23:04
DX: S01.01XA Laceration without foreign body of scalp, initial encounter (principal); S11.91XA Laceration without foreign body of unspecified part of neck, initial encounter; F10.129 Alcohol abuse with intoxication, unspecified; V89.2XXA Person injured in unspecified motor-vehicle accident, traffic, initial encounter; Y93.89 Activity, other specified; Y92.89 Other specified places as the place of occurrence of the external cause; Y99.8 Other external cause status
CPT/HCPCS: 99285; 70450; 82550; 80053; 85025; 36415; 73610; 72125; 71260; 70486; 74177; 96365; 96375; 96366; 90714; 90471; 12004; Q9967; J1200; J3490; J2405; J2543; 96374

== ENCOUNTER 2023-12-16 19:40 | Emergency (ER) | payer MEDICAID, OTHER ==
[~2023-12-16] VITALS: Ht 177.8 cm; Wt 108.9 kg
[~2023-12-16 19:40] MED LIST changes: +AMOX-427 PO; -ONDA-243 PO; +ONDA4TAB10 PO
[2023-12-16 21:50] VITALS: BP 139/86; PULSE 84; RESP 20; O2SAT 98
[2023-12-16] MEDS: DEXAMETHASONE SOD PHOSPHATE 4 MG/ML 1ML VIAL IM ONE (22:30)
[2023-12-16] MEDS: CYCLOBENZAPRINE HCL 10 MG TABLET PO ONE (22:30)
[2023-12-16] MEDS: KETOROLAC 60 MG VIAL (30MG/ML) IM ONE (22:31)
[2023-12-16] MEDS ORDERED: IBUP-2077 PO (23:28)
[2023-12-16] MEDS ORDERED: CYCL-309 PO (23:28)
== END 2023-12-16 23:45 | disposition home or self-care (01) ==
LOC: EDH 19:40
DX: S39.012A Strain of muscle, fascia and tendon of lower back, initial encounter (principal); F41.9 Anxiety disorder, unspecified; F32.A Depression, unspecified; Z79.899 Other long term (current) drug therapy; Z98.890 Other specified postprocedural states; X58.XXXA Exposure to other specified factors, initial encounter; Y93.89 Activity, other specified; Y92.89 Other specified places as the place of occurrence of the external cause; Y99.8 Other external cause status
CPT/HCPCS: 99284; 72100; 96372 ×2; J1100; J1885

== ENCOUNTER 2024-08-14 15:50 | Emergency (ER) | payer MEDICAID ==
[~2024-08-14] VITALS: Ht 177.8 cm; Wt 113.4 kg
[~2024-08-14 15:50] MED LIST changes: +CYCL-309 PO; +IBUP-2077 PO; +ONDA-243 PO; -ONDA4TAB10 PO
--- NOTE | 2024-08-14 16:21 | EKG ---
[facility] Test Date: 2024-08-14 Test Time: 16:20:40 Pat Name: EZRA VELAZQUEZ Department: ED Room: Gender: M Fire [employer]: [id number] : 1980 Requested By: TANGELA TARIQ Order Number: [id number] Reading MD: Artie Suarez Measurements Intervals [place] Rate: 74 P: 55 MT: 163 QRS: 62 QRSD: 100 T: 49 QT: 399 QTc: 443 Interpretive Statements Sinus rhythm Compared to ECG 08/17/2023 22:23:13 Sinus bradycardia no longer present Electronically Signed On 08-14-2024 19:09:39 LOGISTICS MANAGEMENT SPECIALIST by Artie Suarez Please click the below link to view image of tracing.
[2024-08-14 16:23] LABS: BASOPHILS # (AUTO) 0.02 K/uL (0.00-0.20); BASOPHILS % (AUTO) 0.2 % (0.0-5.0); EOSINOPHILS # (AUTO) 0.05 K/uL (0.00-0.70); EOSINOPHILS % (AUTO) 0.5 % (0.0-8.0); HEMATOCRIT 45.6 % (42-54); IMMATURE GRANULOCYTE ABSOLUTE 0.03 K/uL (0-1); LYMPHOCYTES # (AUTO) 3.7 K/uL (1.0-4.8); LYMPHOCYTES % (AUTO) 35.4 % (21.0-51.0); MEAN CORPUSCULAR HEMOGLOBIN 31.3 pg (27.0-33.0); MEAN CORPUSCULAR VOLUME 92.1 fL (79-99); MONOCYTES # (AUTO) 0.5 K/uL (0.1-1.0); MONOCYTES % (AUTO) 4.3 % (3.0-13.0); NEUTROPHILS # (AUTO) 6.2 K/uL (1.8-7.7); NEUTROPHILS % (AUTO) 59.3 % (40.0-77.0); PLATELET COUNT (AUTO) 346 K/uL (130-400); RED BLOOD CELL COUNT(AUTO) 4.95 MIL/uL (4.50-6.20); RED CELL DISTRIBUTION WIDTH 12.1 % (11.0-15.5); WHITE BLOOD COUNT (AUTO) 10.5 K/uL (4.8-10.8)
[2024-08-14 16:34] LABS: CREATININE 0.8 mg/dL (0.5-1.3); POTASSIUM 3.8 mmol/L (3.5-5.1)
[2024-08-14 16:44] LABS: ALBUMIN 4.1 g/dL (3.5-5.0); BILIRUBIN,TOTAL 0.7 mg/dL (0.2-1.0); TOTAL PROTEIN, SERUM 7.8 g/dL (6.0-8.3)
--- NOTE | 2024-08-14 17:20 | ERN ---
General Chief Complaint: Abdominal Pain Stated Complaint: ABDOMINAL PAIN,LOSS OF APPETITE,LIGHTHEADED Time Seen by MD: 15:51 Source: patient History of Present Illness Initial Comments PATIENT IS A 43-YEAR-OLD MALE COMING IN TO BE EVALUATED FOR ABDOMINAL PAIN. PATIENT WAS CONCERNED BECAUSE SEVERAL MONTHS AGO HE HAD A OPERATION SECONDARY TO AN ABSCESS IN HIS ABDOMINAL REGION AND HE STATES THAT HIS INTESTINES WERE PERFORATED. HE WAS COMING IN COMPLAINING OF GENERALIZED ABDOMINAL PAIN AND FLUCTUATING PAIN IN THE RIGHT UPPER QUADRANT AREA. Allergies: Coded Allergies: No Known Drug Allergies (Unverified Allergy, Unknown, 07/18/23) Home Meds Active Scripts Cyclobenzaprine HCl (Cyclobenzaprine HCl) 10 Mg Tablet, 10 MG PO TID, #30 TAB Prov:LUCINDA CASEY AIRFRAME AND POWERPLANT TECHNICIAN 12/16/23 Ibuprofen (Ibuprofen 800 mg Tab) 800 Mg Tab, 800 MG PO Q8H PRN for fever or pain, #30 TAB 0 Refills Prov:LUCINDA CASEY AIRFRAME AND POWERPLANT TECHNICIAN 12/16/23 Amoxicillin/Potassium Clav (Augmentin Xr 1,000-62.5 Tab) 1,000 Mg-62.5 Mg Tab.er.12h, 1 EACH PO Q12H, #20 TAB Prov:CHARLOTTE SCRUGGS MD 12/10/23 Metoclopramide HCl (Reglan) 10 Mg Tablet, 10 MG PO TID, #90 TAB 2 Refills Prov:GLENNY MURGUIA Sr., MD 08/18/23 Polyethylene Glycol 3350 (Miralax) 17 Gram Powd.pack, 17 GM PO TID for constipation, #90 PACKET 2 Refills Prov:GLENNY MURGIUA Sr., MD 08/18/23 Ondansetron (Ondansetron Odt) 4 Mg Tab.rapdis, 4 MG PO Q6HPRN PRN for NAUSEA/VOMITING, #20 TAB Prov:EMI FORD PRINT PRODUCTION COORDINATOR 08/14/23 Reported Medications Alprazolam (Xanax) 0.25 Mg Tablet, 0.25 MG PO BID, TAB 05/15/23 Paroxetine HCl (Paroxetine HCl) 10 Mg Tablet, 1 TAB PO HS 05/10/23 Past Medical History Past Medical History: Diverticulitis Medical History Other: DIVERTICULITIS Past Surgical History: Other Surgical History Other: ABDOMINAL PAIN Family History Family History: DM, HTN Social History Social History: Drugs, ETOH, Lives with family ROS Dictation CONSTITUTIONAL: NO CHILLS, NO FEVER, NO WEAKNESS, NO DIAPHORESIS, NO MALAISE. HEAD/FACE: NO SIGNS OF TRAUMA. EENT: NO EYE PAIN, NO BLURRED VISION, NO TEARING, NO DOUBLE VISION, NO EAR PAIN, NO EAR DISCHARGE, NO NOSE PAIN, NO NASAL CONGESTION, NO THROAT PAIN, NO THROAT SWELLING, NO MOUTH PAIN. RESPIRATORY: NO COUGH, NO ORTHOPNEA, NO SOB, NO STRIDOR, NO WHEEZING. CARDIOVASCULAR: NO CHEST PAIN, NO EDEMA, NO PALPITATIONS, NO SYNCOPE. GASTROINTESTINAL/ABDOMINAL: NO ABDOMINAL PAIN, NO CONSTIPATION, NO DIARRHEA, NO NAUSEA, NO VOMITING. GENITOURINARY: NO ABNORMAL DISCHARGE, NO DYSURIA, NO FREQUENT URINATION, NO HEMATURIA. NO COMPLAINTS OF PAIN IN THE GENITALS. MUSCULOSKELETAL: NO BACK PAIN, NO GOUT, NO JOINT PAIN, NO JOINT SWELLING, NO MUSCLE PAIN, NO MUSCLE STIFFNESS, NO NECK PAIN. INTEGUMENTARY: NO CHANGE IN COLOR, NO CHANGE IN HAIR/NAILS, NO DRYNESS, NO LESION, NO LUMPS, NO RASH. NEUROLOGICAL/PSYCH: NO ANXIETY, NOT DEPRESSED, NO EMOTIONAL PROBLEM, NO HEADACHE, NO NUMBNESS, NO PRE-EXISTING DEFICIT, NO HISTORY OF SEIZURES, NO TREMORS, NO WEAKNESS. HEMATOLOGIC/LYMPHATIC: NOT ANEMIC, NO HISTORY OF BLOOD CLOTS, NO APPARENT BLEEDING, NO BRUISING, GLANDS NOT SWOLLEN. ALL SYSTEMS NEGATIVE, EXCEPT NOTED. Physical Exam Physical Exam Dictation VITAL SIGNS: REVIEWED. GENERAL APPEARANCE: ALERT, ORIENTED X3, NO ACUTE DISTRESS, OBESE. HEAD AND FACE: NON-TRAUMATIC. EYES: PERRL, PINK CONJUNCTIVAS, EYELID NO TRAUMA, ANTERIOR CHAMBER CLEAR. EARS: PINNAS INTACT AND NO SIGNS OF TRAUMA OR ERYTHEMA. EAR CANALS CLEAR AND NO DISCHARGE. TMS NO ERYTHEMA. NOSE: NO DISCHARGE, NO BLEEDING. OROPHARYNX: MOUTH NORMAL, TEETH NO CARIES, TONGUE PINK. PHARYNX CLEAR, NO ERYTHEMA. TONSILS NO EXUDATES, NO ABSCESSES NOTED. MUCOUS MEMBRANE MOIST. NECK: SUPPLE, NON-TENDER, NO THYROMEGALY, NO MASSES, NO JVD, NO BRUITS. BREAST: DEFERRED. CHEST: NO TENDERNESS, NO CREPITUS, NO PARADOXICAL MOVEMENT, NO RETRACTIONS. LUNGS: CLEAR, WELL-VENTILATED, SYMMETRIC, NO RALES, NO WHEEZING, NO RHONCHI, NO STRIDOR, GOOD BREATH SOUNDS BILATERALLY. HEART: REGULAR RATE, REGULAR RHYTHM, NO MURMUR, NO GALLOPS. VASCULAR: NO PERIPHERAL EDEMA. ABDOMEN: SOFT, POSITIVE BOWEL SOUNDS, NONDISTENDED, NO GUARDING, NONTENDER, NO REBOUND, NO MASSES NO HEPATOMEGALY, NO SPLENOMEGALY, NO LITTLE'S SIGN, NO HERNI . RECTAL: DEFERRED. GENITAL: DEFERRED. NEUROLOGICAL: NORMAL SPEECH, GROSS MOTOR FUNCTION INTACT, GROSS SENSORY FUNCTION INTACT. MUSCULOSKELETAL: NECK NONTENDER, FULL RANGE OF MOTION, BACK NONTENDER, FULL RANGE OF MOTION. EXTREMITIES: NONTENDER, FULL RANGE OF MOTION. SKIN: COLOR PINK, DRY, NO TURGOR, NO RASH, NO LACERATIONS, NO ABRASIONS, NO CONTUSIONS. LYMPHATICS: DEFERRED. Results Laboratory and Microbiology Lab and Micro Result Laboratory Tests Test 08/14/24 16:17 White Blood Count 10.5 K/uL (4.8-10.8) Red Blood Count 4.95 MIL/uL (4.50-6.20) Hemoglobin 15.5 g/dL (14.0-18.0) Hematocrit 45.6 % (42-54) Mean Corpuscular Volume 92.1 fL (79-99) Mean Corpuscular Hemoglobin 31.3 pg (27.0-33.0) Mean Corpuscular Hemoglobin Concent 34.0 g/dL (32.0-36.0) Red Cell Distribution Width 12.1 % (11.0-15.5) Platelet Count 346 K/uL (130-400) Mean Platelet Volume 8.7 fL (7.5-10.5) Immature Granulocyte % (Auto) 0.3 % (0-1) Neutrophils (%) (Auto) 59.3 % (40.0-77.0) Lymphocytes (%) (Auto) 35.4 % (21.0-51.0) Monocytes (%) (Auto) 4.3 % (3.0-13.0) Eosinophils (%) (Auto) 0.5 % (0.0-8.0) Basophils (%) (Auto) 0.2 % (0.0-5.0) Neutrophils # (Auto) 6.2 K/uL (1.8-7.7) Lymphocytes # (Auto) 3.7 K/uL (1.0-4.8) Monocytes # (Auto) 0.5 K/uL (0.1-1.0) Eosinophils # (Auto) 0.05 K/uL (0.00-0.70) Basophils # (Auto) 0.02 K/uL (0.00-0.20) Absolute Immature Granulocyte (auto 0.03 K/uL (0-1) Nucleated Red Blood Cells 0.0 % (0.0-0.19) Sodium Level 137 mmol/L (136-145) Potassium Level 3.8 mmol/L (3.5-5.1) Chloride Level 100 mmol/L (101-111) L Carbon Dioxide Level 30 mmol/L (21-32) Blood Urea Nitrogen 11 mg/dL (7-18) Creatinine 0.8 mg/dL (0.5-1.3) Glomerular Filtration Rate Calc 113 mL/min (>90) Random Glucose 92 mg/dL (70-105) Total Calcium 8.7 mg/dL (8.5-10.1) Total Bilirubin 0.7 mg/dL (0.2-1.0) Aspartate Amino Transf (AST/SGOT) 21 U/L (10-37) Alanine Aminotransferase (ALT/SGPT) 35 U/L (12-78) Alkaline Phosphatase 78 U/L (50-136) Total Creatine Kinase 73 U/L (21-232) # Troponin I High Sensitivity 7 ng/L (4-75) Total Protein 7.8 g/dL (6.0-8.3) Albumin 4.1 g/dL (3.5-5.0) Lipase 33 U/L (16-77) Labs Reviewed?: Yes EKG/XRAY/US/CT/MRI EKG Comment 08/14/2024 TIME 4:20 P.M. VENTRICULAR RATE 74 SINUS RHYTHM [place] [address] WAVE ELEVATION OR DEPRESSION CT Scan Comment [place] [id number] [id number] IMAGING REPORT Signed PATIENT: EZRA VELAZQUEZ MR#: [id number] : 1980 SEX: M AGE: 43 LOCATION: [facility] ORDER 52 STATUS: REG ER REPORT#: [id number] SERVICE 51 REASON: ABD PAIN ORDERING PHYSICIAN: TANGELA TARIQ MD PROCEDURE: ABD PEL WO - CT ABDOMEN/PELVIS W/O CONTRAST CT ABDOMEN/PELVIS W/O CONTRAST HISTORY: Abdominal pain COMPARISON: 08/14/2023 TECHNIQUE: Multiple sequential axial images of the abdomen and pelvis were obtained from the dome of the diaphragm through symphysis pubis. Patient was not given contrast through intravenous route. Oral contrast was not given. FINDINGS: No pleural effusion is seen bilaterally. There is no evidence of parenchymal disease or pulmonary nodule of the visualized lower lungs. Degenerative changes of the thoracolumbar spine are present. The heart is not enlarged. Liver is enlarged measuring 19 cm. Gallbladder is distended. There is small periumbilical hernia with fat content. There is small ventral hernia with bowel content. No bowel obstruction is seen. The liver, spleen, adrenal glands and pancreas are unremarkable. There is no evidence of hydronephrosis bilaterally. No evidence of renal stone is seen. Fecal material is seen in the colon. There are normal size retroperitoneal and mesenteric lymph nodes. No ascites is seen. Atherosclerotic changes are present. Pelvic sidewalls are symmetric bilaterally. Bladder is well distended without wall thickening. IMPRESSION: 1. No acute findings. CT was performed with one or more following dose reduction techniques: automated exposure control, adjustment of the mA and kv according to patient's size, or use of a iterative reconstruction technique. DICTATED BY: JOCELIN CHE MD DATE: 08/14/241810 ELECTRONICALLY SIGNED BY: JOCELIN CHE MD DATE: 08/14/241821 [facility] MDM: DIFFERENTIAL DIAGNOSIS: WELLNESS EXAM, ANXIETY, PATIENT IS A 43-YEAR-OLD MALE COMING IN TO BE EVALUATED FOR ABDOMINAL DISCOMFORT. PATIENT STATES HE WAS A HISTORY OF DIVERTICULITIS AND THE ABDOMINAL ABSCESS WHICH LED HIM TO STAY IN THE HOSPITAL 50 DAYS. LABORATORY WORKUP NEGATIVE FOR ACUTE FINDINGS. HE WILL BE DISCHARGED IN STABLE CONDITION MEDICATIONS PROVIDED. FOR SYMPTOMATIC RELIEF ED Course Orders Procedure Category Date Status Time Cbc With Differential LAB 08/14/24 Complete 16:06 Comprehensive LAB 08/14/24 Complete Metabolic Panel 16:06 Troponin I High LAB 08/14/24 Complete Sensitivity 16:06 Occult Blood Stool LAB 08/14/24 Logged Single Only 16:06 12 Lead Ekg Tracing- EKG 08/14/24 Complete Technical 16:06 Creatine Kinase, Total LAB 08/14/24 Complete 16:06 Lipase LAB 08/14/24 Complete 16:06 Ct Abdomen/Pelvis W/O CT 08/14/24 Resulted Contrast 17:52 Vital Signs Date Time Temp Pulse Resp B/P (MAP) Pulse Ox O2 Delivery O2 Flow Rate FiO2 08/14/24 15:52 98.1 76 20 161/104 98 Room Air 0 DX & DISP Disposition: Discharge Departure Impression: Primary Impression: Anxiety Additional Impression: Wellness examination Condition: Stable Additional Instructions: FOLLOW-UP WITH PRIMARY CARE PROVIDER IN 1 TO 2 DAYS. TAKE MEDICATIONS DIRECTED HERE IN THE EMERGENCY ROOM. OKAY TO CONTINUE HOME MEDICATIONS UNLESS OTHERWISE DISCUSSED DURING YOUR VISIT IN THE EMERGENCY ROOM TODAY. RETURN TO YOUR NEAREST EMERGENCY ROOM IF SYMPTOMS WORSEN OR IF THERE IS NO IMPROVEMENT. CALL 911 IF YOU NEED IMMEDIATE ASSISTANCE. TAKE TYLENOL [id number] NEEDED AND IF NO CONTRAINDICATIONS ARE PRESENT. INCREASE ORAL HYDRATION. A WOUND CULTURE OR URINE CULTURE WAS ORDERED HERE IN THE EMERGENCY ROOM DEPARTMENT PLEASE FOLLOW-UP WITH PRIMARY CARE PROVIDER AND ADVISE THEM TO GET REPEAT PORTS FROM OUR FACILITY. IF YOU HAD ANY AURE WRAP/SPLINTS THAT WERE APPLIED HERE, PLEASE DO NOT REMOVE THEM UNTIL YOU SEE YOUR PRIMARY CARE OR SPECIALTY. REFERRALS: Referrals: EILEEN WILKES (PCP) Time of Disposition: 18:30 TANGELA TARIQ MD Aug 14, 2024 17:20
--- NOTE | 2024-08-14 18:22 | HMCIMG ---
CT ABDOMEN/PELVIS W/O CONTRAST HISTORY: Abdominal pain COMPARISON: 08/14/2023 TECHNIQUE: Multiple sequential axial images of the abdomen and pelvis were obtained from the dome of the diaphragm through symphysis pubis. Patient was not given contrast through intravenous route. Oral contrast was not given. FINDINGS: No pleural effusion is seen bilaterally. There is no evidence of parenchymal disease or pulmonary nodule of the visualized lower lungs. Degenerative changes of the thoracolumbar spine are present. The heart is not enlarged. Liver is enlarged measuring 19 cm. Gallbladder is distended. There is small periumbilical hernia with fat content. There is small ventral hernia with bowel content. No bowel obstruction is seen. The liver, spleen, adrenal glands and pancreas are unremarkable. There is no evidence of hydronephrosis bilaterally. No evidence of renal stone is seen. Fecal material is seen in the colon. There are normal size retroperitoneal and mesenteric lymph nodes. No ascites is seen. Atherosclerotic changes are present. Pelvic sidewalls are symmetric bilaterally. Bladder is well distended without wall thickening. IMPRESSION: 1. No acute findings. CT was performed with one or more following dose reduction techniques: automated exposure control, adjustment of the mA and kv according to patient's size, or use of a iterative reconstruction technique.
[2024-08-14 19:00] VITALS: BP 140/90; PULSE 90; RESP 16; TEMP 98.3; O2SAT 98
== END 2024-08-14 19:03 | disposition home or self-care (01) ==
LOC: EDH 15:50
DX: F41.9 Anxiety disorder, unspecified (principal); Z79.899 Other long term (current) drug therapy; Z98.890 Other specified postprocedural states
CPT/HCPCS: 36415; 74176; 80053; 82550; 83690; 84484; 85025; 93005